=== PATIENT | female | born 1955 | race Caucasian/White ===

== ENCOUNTER 2018-04-22 06:14 | Outpatient (RCR) | payer MEDICAID, SELFPAY ==
[2018-04-22] MEDS: Normal Saline Flush 10 ML SYR IVP (12:26)
[2018-04-22] MEDS: Heparin 500 UNITS/5 ML SYRINGE IV (12:26)
[2018-04-22 12:54] LABS: Abs Immature Grans 0.01 k/cumm (0.0-0.09); Absolute Basophil Count 0.03 k/cumm (0.0-0.2); Absolute Eosinophil Count 0.29 k/cumm (0.0-0.7); Absolute Lymphocyte Count 0.79 k/cumm (1.2-3.4); Absolute Monocyte Count 0.71 k/cumm (0.11-0.7); Basophils % 0.5; Eosinophils % 4.6; HCT 36.4 % (36.0-46.0); HGB 11.9 g/dL (12.0-15.5); Immature Grans % 0.2; Lymphocytes % 12.5; Mean Corp. HGB Concentration 32.7 g/dL (32.0-36.0); Mean Corpuscular Volume 82.7 fL (80-95); Mean Platelet Volume 9.8 fL (8.0-11.0); Monocytes % 11.2; Platelet Count 313 x1000/uL (130-400); White Blood Cell Count 6.33 k/cumm (4.4-10.8)
[2018-04-22 13:05] LABS: ALT 21 U/L (12-78); AST 10 U/L (15-37); Albumin 3.6 g/dL (3.4-5.0); Alkaline Phosphatase 103 U/L (46-116); Anion Gap 11.1 mmol/L (3-11); BUN 19 mg/dL (7-18); Bilirubin, Total 0.3 mg/dL (0.2-1.0); CO2 23.9 mmol/L (21.0-32.0); CREATININE 0.97 mg/dL (0.55-1.02); Calcium 8.7 mg/dL (8.5-10.1); Chloride 104 mmol/L (98-107); Estimated GFR 58.38 (mL/min/1.73m2); Glucose 100 mg/dL (70-100); Sodium 139 mmol/L (136-145); Total Protein 7.4 g/dL (6.4-8.2)
== END 2018-04-29 ==
LOC: INF 06:14
PROVIDERS: PCP Nurse Practitioner Family; Visit Provider Internal Medicine Hematology & Oncology
DX: C20 Malignant neoplasm of rectum (principal); Z45.2 Encounter for adjustment and management of vascular access device
CPT/HCPCS: 36591; 80053; 85025

== ENCOUNTER 2018-05-01 18:18 | Emergency (ER) | payer MEDICAID, SELFPAY ==
[2018-05-01 18:24] VITALS: BP 126/45; PULSE 89; RESP 16; TEMP 36.6; O2SAT 98
[2018-05-01 19:19] LABS: Abs Immature Grans 0.02 k/cumm (0.0-0.09); Absolute Basophil Count 0.02 k/cumm (0.0-0.2); Absolute Eosinophil Count 0.11 k/cumm (0.0-0.7); Absolute Lymphocyte Count 0.64 k/cumm (1.2-3.4); Absolute Monocyte Count 0.21 k/cumm (0.11-0.7); Basophils % 0.5; Eosinophils % 2.8; HCT 35.7 % (36.0-46.0); HGB 11.6 g/dL (12.0-15.5); Immature Grans % 0.5; Lymphocytes % 16.5; Mean Corp. HGB Concentration 32.5 g/dL (32.0-36.0); Mean Corpuscular Hemoglobin 26.2 pg (27.0-33.0); Mean Corpuscular Volume 80.6 fL (80-95); Mean Platelet Volume 9.2 fL (8.0-11.0); Monocytes % 5.4; Neutrophils % 74.3; Platelet Count 334 x1000/uL (130-400); RBC 4.43 m/cumm (4.00-5.20); RBC Distribution Width 14.2 % (11.7-14.6); White Blood Cell Count 3.87 k/cumm (4.4-10.8)
--- NOTE | 2018-05-01 19:22 | W.ED.GENAD ---
Discharge Plan Discharge Details Chief Complaint: Abd Prob Clinical Impression: Abdominal pain Primary Care Provider: Татьяна Rothman ED Provider: Haris Morrell Disposition Patient Disposition: STILL A PATIENT Home Meds and New Rx's Prescriptions: No Action ZHANNA 180 MG tablet 180 mg PO DAILY RF: 0 spironolactone 25 MG tablet 50 mg PO BID RF: 0 omeprazole [Prilosec] 20 MG capsule,delayed release(DR/EC) 20 mg PO DAILY RF: 0 metformin 1,000 MG tablet 1,000 mg PO BID Qty: 180 RF: 3 gabapentin 100 MG capsule DAILY RF: 0 Medical Decision Making MDM Narrative Medical decision making narrative: 63 yo female with hx of rectal adenocarcinoma, recent admission for uti, who comes in with chief complaint of abdominal pain worsening over 4 days. She states she has had constipation for a week that has improved with miralax and has stool in her ostomy, has had nausea and no vomit. She has mid adbominal pain on exam. given her hx will obtain ct abd/pelvis to eval for sbo among other surgical pathology and eval for pancreatitis and hepatitis. She declined pain meds at this time Pt remains stable, awaiting imaging. Will be signed out to Dr. Helms pending imaging results Differential Diagnosis constipation, gastritis, pancreatitis, sbo Lab Data Lab Results 05/01/18 05/01/18 Range/Units 19:13 19:13 WBC Cancelled RBC Cancelled Hgb Cancelled Hct Cancelled MCV Cancelled MCH Cancelled MCHC Cancelled RDW Cancelled Plt Count Cancelled MPV Cancelled Abs Immat Gran (auto) Cancelled Immature Gran % Cancelled Neutrophils % Cancelled Lymphocytes % Cancelled Monocytes % Cancelled Eosinophils % Cancelled Basophils % Cancelled Absolute Neutrophils Cancelled Band Neutrophils Cancelled Absolute Lymphocytes Cancelled Absolute Monocytes Cancelled Absolute Eosinophils Cancelled Absolute Basophils Cancelled Metamyelocytes Cancelled Myelocytes Cancelled Promyelocytes Cancelled Nucleated RBCs Cancelled Differential Comment Cancelled Atypical Lymphocytes Cancelled Other Cell Type Cancelled RBC Morphology Cancelled Polychromasia Cancelled Hypochromasia Cancelled Poikilocytosis Cancelled Basophilic Stippling Cancelled Anisocytosis Cancelled Microcytosis Cancelled Macrocytosis Cancelled Spherocytes Cancelled Target Cells Cancelled Tear Drop Cells Cancelled Ovalocytes Cancelled Stomatocytes Cancelled [place] Bodies Cancelled Angeli Cells Cancelled Acanthocytes (Spur) Cancelled Schistocytes Cancelled Lipase Cancelled HPI - General Adult General Mode of arrival: ambulatory. Date/Time Provider Initiated Documentation: 05/01/18 18:28. Limitations to Documentation: no limitations. Information obtained by: patient. History of Present Illness 63 year old F presents to the emergency department with the chief complaint of abdominal pain, described as moderate, with intensity rated at 5. Quality is described as stabbing, and is localized to the abdomen. Patient reports no radiation. Patient started experiencing this day(s) (4) and it has been constant. Rest improves symptom(s), Movement worsens symptoms . Patient notes other (nausea). Patient did receive the following treatments prior to arrival, none Related Data Home Medications Medication Instructions Recorded Confirmed Zhanna 180 mg PO DAILY tab-cap 04/20/14 05/01/18 omeprazole [Prilosec] 20 mg PO DAILY tab-cap 04/20/14 05/01/18 spironolactone 50 mg PO BID tab-cap 04/20/14 05/01/18 gabapentin DAILY 04/22/18 Allergies Allergy/AdvReac Type Severity Reaction Status Date / Time No Known Allergies Allergy Unverified 05/01/18 18:23 General Stated Complaint: Abd Prob LINUS: 3 Review of Systems Review of Systems All systems reviewed & are unremarkable except as noted in HPI and below Constitutional Denies chills, Denies fever(s) and Denies weakness Eyes Patient Denies loss of vision ENT Denies change in voice Cardiovascular Denies chest pain and Denies dyspnea Respiratory Denies dyspnea Gastrointestinal Reports abdominal pain, Reports nausea and Denies vomiting Genitourinary Denies dysuria Musculoskeletal Denies joint swelling Integumentary/Breasts Denies rash Neurologic Denies loss of vision and Denies weakness Psychiatric Denies depression Endocrine Denies cold intolerance and Denies heat intolerance Allergic/Immunologic Reports urticaria [facility] Medical History Arthralgia Hyperlipidemia Low back pain ISIAH (obstructive sleep apnea) PCOS (polycystic ovarian syndrome) Vitamin D deficiency Social History Smoking/Tobacco Use Status: Never Surgical History Colonoscopy - MAC (07/27/17) Dilation and curettage Hysterectomy, Laproscopic Exam Const General: no acute distress Orientation: alert HENMT Head: normal to inspection Ears: external ears normal General nose exam: external nose normal Mouth: moist mucous membranes Eyes General: appearance normal, both eyes and all related structures Neck Neck: normal visual inspection Resp Effort & Inspection: normal respiratory effort and able to speak in complete sentences Cardio Rate: regular rate GI Palpation: tender (mid abdomen, no guarding or rebound, ostomy with loose stool in it) Skin General skin exam: no rashes or lesions noted Neuro General: alert and oriented x3 Extrem General: normal to inspection Psych Mental Status: mental status grossly normal Course Vital Signs Temperature 36.6 C 05/01/18 18:24 Pulse 89 05/01/18 18:24 Respiratory Rate 16 05/01/18 18:24 Blood Pressure 126/45 L 05/01/18 18:24 Pulse Oximetry 98 05/01/18 18:24 Temperature 36.6 C 05/01/18 18:24 Pulse 89 05/01/18 18:24 Respiratory Rate 16 05/01/18 18:24 Blood Pressure 126/45 L 05/01/18 18:24 Pulse Oximetry 98 05/01/18 18:24 Lab/Test Results Lab/Test Results: Laboratory Tests 05/01/18 05/01/18 19:13 19:13 WBC Cancelled RBC Cancelled Hgb Cancelled Hct Cancelled MCV Cancelled MCH Cancelled MCHC Cancelled RDW Cancelled Plt Count Cancelled MPV Cancelled Abs Immat Gran (auto) Cancelled Immature Gran % Cancelled Neutrophils % Cancelled Lymphocytes % Cancelled Monocytes % Cancelled Eosinophils % Cancelled Basophils % Cancelled Absolute Neutrophils Cancelled Band Neutrophils Cancelled Absolute Lymphocytes Cancelled Absolute Monocytes Cancelled Absolute Eosinophils Cancelled Absolute Basophils Cancelled Metamyelocytes Cancelled Myelocytes Cancelled Promyelocytes Cancelled Nucleated RBCs Cancelled Differential Comment Cancelled Atypical Lymphocytes Cancelled Other Cell Type Cancelled RBC Morphology Cancelled Polychromasia Cancelled Hypochromasia Cancelled Poikilocytosis Cancelled Basophilic Stippling Cancelled Anisocytosis Cancelled Microcytosis Cancelled Macrocytosis Cancelled Spherocytes Cancelled Target Cells Cancelled Tear Drop Cells Cancelled Ovalocytes Cancelled Stomatocytes Cancelled [place] Bodies Cancelled Angeli Cells Cancelled Acanthocytes (Spur) Cancelled Schistocytes Cancelled Lipase Cancelled
--- NOTE | 2018-05-01 19:28 | ED.GENADUL_ITS ---
Discharge Plan Discharge Details Chief Complaint: Abd Prob Clinical Impression: Abdominal pain Primary Care Provider: Татьяна Rothman ED Provider: Haris Morrell Disposition Patient Disposition: STILL A PATIENT Home Meds and New Rx's Prescriptions: No Action ZHANNA 180 MG tablet 180 mg PO DAILY RF: 0 spironolactone 25 MG tablet 50 mg PO BID RF: 0 omeprazole [Prilosec] 20 MG capsule,delayed release(DR/EC) 20 mg PO DAILY RF: 0 metformin 1,000 MG tablet 1,000 mg PO BID Qty: 180 RF: 3 gabapentin 100 MG capsule DAILY RF: 0 Medical Decision Making MDM Narrative Medical decision making narrative: 63 yo female with hx of rectal adenocarcinoma , recent admission for uti, who comes in with chief complaint of abdominal pain worsening over 4 days. She states she has had constipation for a week that has improved with miralax and has stool in her ostomy, has had nausea and no vomit. She has mid adbominal pain on exam. given her hx will obtain ct abd/pelvis to eval for sbo among other surgical pathology and eval for pancreatitis and hepatitis. She declined pain meds at this time Pt remains stable, awaiting imaging. Will be signed out to Dr. Helms pending imaging results Differential Diagnosis constipation, gastritis, pancreatitis, sbo Lab Data Lab Results 05/01/18 05/01/18 Range/Units 19:13 19:13 WBC Cancelled RBC Cancelled Hgb Cancelled Hct Cancelled MCV Cancelled MCH Cancelled MCHC Cancelled RDW Cancelled Plt Count Cancelled MPV Cancelled Abs Immat Gran (auto) Cancelled Immature Gran % Cancelled Neutrophils % Cancelled Lymphocytes % Cancelled Monocytes % Cancelled Eosinophils % Cancelled Basophils % Cancelled Absolute Neutrophils Cancelled Band Neutrophils Cancelled Absolute Lymphocytes Cancelled Absolute Monocytes Cancelled Absolute Eosinophils Cancelled Absolute Basophils Cancelled Metamyelocytes Cancelled Myelocytes Cancelled Promyelocytes Cancelled Nucleated RBCs Cancelled Differential Comment Cancelled Atypical Lymphocytes Cancelled Other Cell Type Cancelled RBC Morphology Cancelled Polychromasia Cancelled Hypochromasia Cancelled Poikilocytosis Cancelled Basophilic Stippling Cancelled Anisocytosis Cancelled Microcytosis Cancelled Macrocytosis Cancelled Spherocytes Cancelled Target Cells Cancelled Tear Drop Cells Cancelled Ovalocytes Cancelled Stomatocytes Cancelled [place] Bodies Cancelled [place] Cells Cancelled Acanthocytes (Spur) Cancelled Schistocytes Cancelled Lipase Cancelled HPI - General Adult General Mode of arrival: ambulatory . Date/Time Provider Initiated Documentation: 05/01/18 18:28 . Limitations to Documentation: no limitations . Information obtained by: patient . History of Present Illness 63 year old F presents to the emergency department with the chief complaint of abdominal pain, described as moderate, with intensity rated at 5. Quality is described as stabbing, and is localized to the abdomen. Patient reports no radiation. Patient started experiencing this day(s) (4) and it has been constant. Rest improves symptom(s), Movement worsens symptoms . Patient notes other (nausea). Patient did receive the following treatments prior to arrival, none Related Data Home Medications Medication Instructions Recorded Confirmed Zhanna 180 mg PO DAILY tab-cap 04/20/14 05/01/18 omeprazole [Prilosec] 20 mg PO DAILY tab-cap 04/20/14 05/01/18 spironolactone 50 mg PO BID tab-cap 04/20/14 05/01/18 gabapentin DAILY 04/22/18 Allergies Allergy/AdvReac Type Severity Reaction Status Date / Time No Known Allergies Allergy Unverified 05/01/18 18:23 General Stated Complaint: Abd Prob LINUS: 3 Review of Systems Review of Systems All systems reviewed & are unremarkable except as noted in HPI and below Constitutional Denies chills, Denies fever(s) and Denies weakness Eyes Patient Denies loss of vision ENT Denies change in voice Cardiovascular Denies chest pain and Denies dyspnea Respiratory Denies dyspnea Gastrointestinal Reports abdominal pain, Reports nausea and Denies vomiting Genitourinary Denies dysuria Musculoskeletal Denies joint swelling Integumentary/Breasts Denies rash Neurologic Denies loss of vision and Denies weakness Psychiatric Denies depression Endocrine Denies cold intolerance and Denies heat intolerance Allergic/Immunologic Reports urticaria [facility] Medical History Arthralgia Hyperlipidemia Low back pain ISIAH (obstructive sleep apnea) PCOS (polycystic ovarian syndrome) Vitamin D deficiency Social History Smoking/Tobacco Use Status: Never Surgical History Colonoscopy - MAC (07/27/17) Dilation and curettage Hysterectomy, Laproscopic Exam Const General: no acute distress Orientation: alert HENMT Head: normal to inspection Ears: external ears normal General nose exam: external nose normal Mouth: moist mucous membranes Eyes General: appearance normal, both eyes and all related structures Neck Neck: normal visual inspection Resp Effort & Inspection: normal respiratory effort and able to speak in complete sentences Cardio Rate: regular rate GI Palpation: tender (mid abdomen, no guarding or rebound, ostomy with loose stool in it) Skin General skin exam: no rashes or lesions noted Neuro General: alert and oriented x3 Extrem General: normal to inspection Psych Mental Status: mental status grossly normal Course Vital Signs Temperature 36.6 C 05/01/18 18:24 Pulse 89 05/01/18 18:24 Respiratory Rate 16 05/01/18 18:24 Blood Pressure 126/45 L 05/01/18 18:24 Pulse Oximetry 98 05/01/18 18:24 Temperature 36.6 C 05/01/18 18:24 Pulse 89 05/01/18 18:24 Respiratory Rate 16 05/01/18 18:24 Blood Pressure 126/45 L 05/01/18 18:24 Pulse Oximetry 98 05/01/18 18:24 Lab/Test Results Lab/Test Results: Laboratory Tests 05/01/18 05/01/18 19:13 19:13 WBC Cancelled RBC Cancelled Hgb Cancelled Hct Cancelled MCV Cancelled MCH Cancelled MCHC Cancelled RDW Cancelled Plt Count Cancelled MPV Cancelled Abs Immat Gran (auto) Cancelled Immature Gran % Cancelled Neutrophils % Cancelled Lymphocytes % Cancelled Monocytes % Cancelled Eosinophils % Cancelled Basophils % Cancelled Absolute Neutrophils Cancelled Band Neutrophils Cancelled Absolute Lymphocytes Cancelled Absolute Monocytes Cancelled Absolute Eosinophils Cancelled Absolute Basophils Cancelled Metamyelocytes Cancelled Myelocytes Cancelled Promyelocytes Cancelled Nucleated RBCs Cancelled Differential Comment Cancelled Atypical Lymphocytes Cancelled Other Cell Type Cancelled RBC Morphology Cancelled Polychromasia Cancelled Hypochromasia Cancelled Poikilocytosis Cancelled Basophilic Stippling Cancelled Anisocytosis Cancelled Microcytosis Cancelled Macrocytosis Cancelled Spherocytes Cancelled Target Cells Cancelled Tear Drop Cells Cancelled Ovalocytes Cancelled Stomatocytes Cancelled [place] Bodies Cancelled [place] Cells Cancelled Acanthocytes (Spur) Cancelled Schistocytes Cancelled Lipase Cancelled
[2018-05-01 19:33] LABS: ALT 20 U/L (12-78); AST 10 U/L (15-37); Albumin 3.4 g/dL (3.4-5.0); Alkaline Phosphatase 104 U/L (46-116); Anion Gap 8.9 mmol/L (3-11); BUN 17 mg/dL (7-18); Bilirubin, Total 0.2 mg/dL (0.2-1.0); CO2 26.1 mmol/L (21.0-32.0); CREATININE 0.86 mg/dL (0.55-1.02); Calcium 8.6 mg/dL (8.5-10.1); Chloride 102 mmol/L (98-107); Glucose 167 mg/dL (70-100); Lipase 80 U/L (73-393); Potassium 4.4 mmol/L (3.5-5.1); Sodium 137 mmol/L (136-145); Total Protein 7.1 g/dL (6.4-8.2)
[2018-05-01 19:34] LABS: Absolute Neutrophil Count 2.88 k/cumm (1.2-6.7)
[2018-05-01] MEDS: Normal Saline 1,000 ML 1000 ML IV (19:41)
[2018-05-01] MEDS: Omnipaque 350 MG/ML 100 ML BTL IJ (20:02)
--- NOTE | 2018-05-01 20:14 | DI.CT_ITS ---
SYMPTOMS/DIAGNOSIS: MID ABDOMINAL PAIN, H/O CANCER CT OF THE ABDOMEN AND PELVIS: Comparison is made with March,. Images were performed from the lung bases through the ischial tuberosities after IV and without oral contrast. A left lower quadrant ostomy and rectal resection are again noted. There is stable presacral soft tissue thickening. There is no evidence of obstruction. No bowel wall thickening is seen. The urinary bladder appears somewhat distended, but otherwise unremarkable. The appendix appears normal. The patient is status post cholecystectomy. The liver, spleen, pancreas and adrenals are unremarkable. There is a right renal cyst. There is no evidence of stones or hydronephrosis. No adenopathy is seen. The aorta is normal in diameter. The lung bases show minimal dependent changes. IMPRESSION: Stable appearance of left lower quadrant ostomy with adjacent fat herniating through the ostomy defect. Stable presacral soft tissue swelling. No acute abnormality is identified.
--- NOTE | 2018-05-01 21:08 | DI.VRAD_ITS ---
EXAM: CT Abdomen and Pelvis With Intravenous Contrast EXAM DATE/TIME: 05/01/2018 8:15 PM CLINICAL HISTORY: 63 years old, female; Signs and symptoms; Other: HX of cancer, mid abdominal pain; Patient HX: Patient being treated for rectal cancer TECHNIQUE: Axial computed tomography images of the abdomen and pelvis with intravenous contrast. All CT scans at this facility use at least one of these dose optimization techniques: automated exposure control; mA and/or kV adjustment per patient size (includes targeted exams where dose is matched to clinical indication); or iterative reconstruction. Coronal and sagittal reformatted images were created and reviewed. CONTRAST: 100 ml of Omnipaque 350 administered intravenously. COMPARISON: CT - CHEST ABD PELVIS WITH CONTRAST 08/09/2017 9:19 AM FINDINGS: Lower thorax: Mild bibasilar atelectasis. ABDOMEN: Liver: Moderate hepatic steatosis. Gallbladder and bile ducts: Post cholecystectomy. Pancreas: Normal. No ductal dilation. Spleen: Normal. No splenomegaly. Adrenals: Normal. No mass. Kidneys and ureters: Few bilateral renal cysts; largest, right kidney, measuring 16 mm. Stomach and bowel: Stomach is moderately distended and fluid-filled. Colostomy, left lower quadrant. Colostomy is new since the 08/09/17 study. Appendix: Normal appendix. PELVIS: Bladder: Bladder is moderately distended. Reproductive: Unremarkable as visualized. Subperitoneal space: Thickening in the presacral region, axial image 84/5 is likely postoperative in origin. Previous noted rectal mass is not visualized on today's study. ABDOMEN and PELVIS: Intraperitoneal space: Normal. No free air. No significant fluid collection. Bones/joints: No acute fracture. No dislocation. Soft tissues: Small, fat containing umbilical hernia. There is herniation of a large amount of fat in the superficial soft tissues around the ostomy site, axial image(s) 74/5. Vasculature: Normal. No abdominal aortic aneurysm. Lymph nodes: Normal. No enlarged lymph nodes. IMPRESSION: Left lower quadrant colostomy, new since the previous study with a large amount of abdominal fat herniated into the ostomy site as described. No obstruction. Postoperative changes noted in the presacral space. No other significant change. No obstruction. Appendix is normal. Dictated and Authenticated by: Santana Gamino MD. Ordering:NEETU ROBERT MD
[2018-05-01 21:29] LABS: Bilirubin Negative (Negative); Blood Trace-intact (Negative); Clarity Clear; Glucose Negative (Negative); Ketones Negative (Negative); Leukocyte Esterase Negative (Negative); Nitrite Negative (Negative); Specific Gravity <= 1.005 (1.005-1.025); Urobilinogen 0.2 EU/dL (Up TO 0.2); pH 5.5 (5-8)
[2018-05-01 21:30] LABS: Bacteria Negative HPF (Negative); C & S Indicated? No; Casts Negative LPF (Negative); Crystals Negative HPF (Negative); Epithelial Cells Negative HPF (Negative); Mucus Negative (Negative); Other Cells Negative (Negative); RBC Negative (0-2); WBC 0-2 HPF (0-5)
[2018-05-01 21:55] VITALS: BP 112/73; PULSE 91; RESP 18; TEMP 36.7; O2SAT 98
[2018-05-01] MEDS: Heparin 500 UNITS/5 ML SYRINGE IVP (21:55)
== END 2018-05-01 21:52 | disposition home or self-care (01) ==
PROVIDERS: Emergency Medicine; Emergency Provider Emergency Medicine; PCP Nurse Practitioner Family
DX: R10.33 Periumbilical pain (principal); R11.0 Nausea; Z85.048 Personal history of other malignant neoplasm of rectum, rectosigmoid junction, and anus; Z93.3 Colostomy status; Z95.828 Presence of other vascular implants and grafts
CPT/HCPCS: 36591; 51701; 80053; 83690; 96361; 96365; 99285; 74177; 81003; 81015; 85025; 85610; J3490

== ENCOUNTER 2018-05-20 00:43 | Outpatient (RCR) | payer MEDICAID, SELFPAY ==
[2018-05-06] MEDS: Normal Saline Flush 10 ML SYR IVP (09:30)
[2018-05-06] MEDS: Heparin 500 UNITS/5 ML SYRINGE IV (09:30)
[2018-05-06 10:25] LABS: Abs Immature Grans 0.03 k/cumm (0.0-0.09); Absolute Basophil Count 0.03 k/cumm (0.0-0.2); Absolute Eosinophil Count 0.24 k/cumm (0.0-0.7); Absolute Lymphocyte Count 0.67 k/cumm (1.2-3.4); Absolute Monocyte Count 0.55 k/cumm (0.11-0.7); Absolute Neutrophil Count 3.88 k/cumm (1.2-6.7); Basophils % 0.6; Eosinophils % 4.4; HCT 36.4 % (36.0-46.0); HGB 11.9 g/dL (12.0-15.5); Immature Grans % 0.6; Lymphocytes % 12.4; Mean Corp. HGB Concentration 32.7 g/dL (32.0-36.0); Mean Corpuscular Hemoglobin 26.8 pg (27.0-33.0); Monocytes % 10.2; Neutrophils % 71.8; Platelet Count 417 x1000/uL (130-400); RBC 4.44 m/cumm (4.00-5.20)
[2018-05-06 10:27] LABS: ALT 22 U/L (12-78); AST 15 U/L (15-37); Albumin 3.6 g/dL (3.4-5.0); Alkaline Phosphatase 108 U/L (46-116); Anion Gap 9.8 mmol/L (3-11); BUN 20 mg/dL (7-18); Bilirubin, Total 0.3 mg/dL (0.2-1.0); CO2 25.2 mmol/L (21.0-32.0); CREATININE 0.99 mg/dL (0.55-1.02); Calcium 8.7 mg/dL (8.5-10.1); Chloride 103 mmol/L (98-107); Estimated GFR 57.02 (mL/min/1.73m2); Glucose 140 mg/dL (70-100); Potassium 3.9 mmol/L (3.5-5.1); Sodium 138 mmol/L (136-145); Total Protein 7.3 g/dL (6.4-8.2)
[2018-05-20] MEDS: Heparin 500 UNITS/5 ML SYRINGE IV (12:40)
[2018-05-20] MEDS: Normal Saline Flush 10 ML SYR IVP (12:40)
[2018-05-20 13:18] LABS: Abs Immature Grans 0.02 k/cumm (0.0-0.09); Absolute Basophil Count 0.03 k/cumm (0.0-0.2); Absolute Eosinophil Count 0.27 k/cumm (0.0-0.7); Absolute Lymphocyte Count 0.65 k/cumm (1.2-3.4); Absolute Monocyte Count 0.77 k/cumm (0.11-0.7); Absolute Neutrophil Count 3.63 k/cumm (1.2-6.7); Basophils % 0.6; HCT 36.3 % (36.0-46.0); HGB 11.8 g/dL (12.0-15.5); Immature Grans % 0.4; Lymphocytes % 12.1; Mean Corp. HGB Concentration 32.5 g/dL (32.0-36.0); Mean Corpuscular Hemoglobin 27.1 pg (27.0-33.0); Mean Corpuscular Volume 83.3 fL (80-95); Monocytes % 14.3; Neutrophils % 67.6; Platelet Count 305 x1000/uL (130-400); RBC 4.36 m/cumm (4.00-5.20); RBC Distribution Width 16.6 % (11.7-14.6); White Blood Cell Count 5.37 k/cumm (4.4-10.8)
[2018-05-20 13:34] LABS: ALT 21 U/L (12-78); AST 14 U/L (15-37); Albumin 3.5 g/dL (3.4-5.0); Alkaline Phosphatase 124 U/L (46-116); Anion Gap 10.4 mmol/L (3-11); BUN 20 mg/dL (7-18); Bilirubin, Total 0.3 mg/dL (0.2-1.0); CO2 23.6 mmol/L (21.0-32.0); CREATININE 0.97 mg/dL (0.55-1.02); Calcium 8.8 mg/dL (8.5-10.1); Chloride 104 mmol/L (98-107); Estimated GFR 58.38 (mL/min/1.73m2); Glucose 125 mg/dL (70-100); Potassium 4.2 mmol/L (3.5-5.1); Sodium 138 mmol/L (136-145); Total Protein 7.2 g/dL (6.4-8.2)
[2018-05-23 09:37] LABS: CEA 4.9 ng/ml
== END 2018-05-29 23:59 | disposition home or self-care (01) ==
LOC: INF 00:43
PROVIDERS: PCP Nurse Practitioner Family; Visit Provider Internal Medicine Hematology & Oncology
DX: C20 Malignant neoplasm of rectum (principal); Z45.2 Encounter for adjustment and management of vascular access device
CPT/HCPCS: 36591; 80053; 82378; 85025

== ENCOUNTER 2018-06-17 02:26 | Outpatient (RCR) | payer MEDICAID, SELFPAY ==
[2018-06-06] MEDS: Normal Saline Flush 10 ML SYR IVP (09:20)
[2018-06-06 09:49] LABS: Abs Immature Grans 0.01 k/cumm (0.0-0.09); Absolute Basophil Count 0.04 k/cumm (0.0-0.2); Absolute Eosinophil Count 0.14 k/cumm (0.0-0.7); Absolute Lymphocyte Count 0.51 k/cumm (1.2-3.4); Absolute Monocyte Count 0.43 k/cumm (0.11-0.7); Absolute Neutrophil Count 1.31 k/cumm (1.2-6.7); Basophils % 1.6; Eosinophils % 5.7; HCT 37.7 % (36.0-46.0); HGB 12.3 g/dL (12.0-15.5); Immature Grans % 0.4; Lymphocytes % 20.9; Mean Corp. HGB Concentration 32.6 g/dL (32.0-36.0); Mean Corpuscular Hemoglobin 27.9 pg (27.0-33.0); Mean Corpuscular Volume 85.5 fL (80-95); Mean Platelet Volume 9.2 fL (8.0-11.0); Monocytes % 17.6; Neutrophils % 53.8; RBC 4.41 m/cumm (4.00-5.20); RBC Distribution Width 19.2 % (11.7-14.6); White Blood Cell Count 2.44 k/cumm (4.4-10.8)
[2018-06-06 10:05] LABS: ALT 22 U/L (12-78); AST 16 U/L (15-37); Albumin 3.5 g/dL (3.4-5.0); Alkaline Phosphatase 127 U/L (46-116); Anion Gap 9.3 mmol/L (3-11); BUN 16 mg/dL (7-18); Bilirubin, Total 0.4 mg/dL (0.2-1.0); CO2 24.7 mmol/L (21.0-32.0); CREATININE 1.25 mg/dL (0.55-1.02); Calcium 8.8 mg/dL (8.5-10.1); Chloride 102 mmol/L (98-107); Estimated GFR 43.57 (mL/min/1.73m2); Glucose 247 mg/dL (70-100); Potassium 4.7 mmol/L (3.5-5.1); Sodium 136 mmol/L (136-145); Total Protein 7.1 g/dL (6.4-8.2)
[2018-06-06 10:12] LABS: Diff Comment Agrees w/ Instrument; Platelet Count 206 x1000/uL (130-400)
[2018-06-06 10:13] LABS: Anisocytosis 2+; Polychromasia Present
[2018-06-17] MEDS: Heparin 500 UNITS/5 ML SYRINGE IV (07:45)
[2018-06-17] MEDS: Normal Saline Flush 10 ML SYR IVP (07:45)
[2018-06-17 08:15] LABS: Abs Immature Grans 0.01 k/cumm (0.0-0.09); Absolute Basophil Count 0.03 k/cumm (0.0-0.2); Absolute Eosinophil Count 0.13 k/cumm (0.0-0.7); Absolute Lymphocyte Count 0.58 k/cumm (1.2-3.4); Absolute Monocyte Count 0.45 k/cumm (0.11-0.7); Basophils % 0.7; Eosinophils % 3.2; HCT 35.4 % (36.0-46.0); HGB 11.8 g/dL (12.0-15.5); Immature Grans % 0.2; Lymphocytes % 14.1; Mean Corp. HGB Concentration 33.3 g/dL (32.0-36.0); Mean Corpuscular Hemoglobin 28.2 pg (27.0-33.0); Mean Corpuscular Volume 84.5 fL (80-95); Neutrophils % 70.8; Platelet Count 280 x1000/uL (130-400); RBC 4.19 m/cumm (4.00-5.20); RBC Distribution Width 19.7 % (11.7-14.6)
[2018-06-17 08:28] LABS: ALT 23 U/L (12-78); AST 11 U/L (15-37); Albumin 3.5 g/dL (3.4-5.0); Alkaline Phosphatase 131 U/L (46-116); Anion Gap 15.7 mmol/L (3-11); BUN 25 mg/dL (7-18); Bilirubin, Total 0.3 mg/dL (0.2-1.0); CO2 20.3 mmol/L (21.0-32.0); CREATININE 1.12 mg/dL (0.55-1.02); Calcium 9.3 mg/dL (8.5-10.1); Chloride 103 mmol/L (98-107); Estimated GFR 49.46 (mL/min/1.73m2); Glucose 167 mg/dL (70-100); Potassium 4.3 mmol/L (3.5-5.1); Sodium 139 mmol/L (136-145)
== END 2018-06-29 23:59 | disposition home or self-care (01) ==
LOC: INF 02:26
PROVIDERS: PCP Nurse Practitioner Family; Visit Provider Internal Medicine Hematology & Oncology
DX: C20 Malignant neoplasm of rectum (principal); Z45.2 Encounter for adjustment and management of vascular access device
CPT/HCPCS: 36415; 36591; 80053; 96523; 85025

== ENCOUNTER 2018-07-11 01:07 | Outpatient (CLI) | payer MEDICAID, SELFPAY ==
--- NOTE | 2018-07-11 11:08 | DI.RAD_ITS ---
SYMPTOM/DIAGNOSIS: RECTAL CA, C20 CATHETER PATENCY CHECK: Fluoroscopy Time: 47 sec Fluoroscopy was utilized during the evaluation of the patient's central venous port. Contrast and saline were unable to be advanced with the patient's arms by her side. However, when the patient's arms were raised above her head, contrast and saline was allowed to flow freely. Fluoroscopic images show contrast flowing from the tip of the catheter without impediment. IMPRESSION: Unremarkable injection of contrast and saline using the patient's penny cath with the patient's arms elevated. 2. The penny cath failed to function normally with the patient's arms by her side. These findings were discussed with Dr. Field on the date of the examination
[2018-07-11] MEDS: Omnipaque 350 MG/ML 50 ML BTL IJ (11:12)
== END 2018-07-11 01:27 ==
PROVIDERS: PCP Nurse Practitioner Family; Visit Provider Nurse Practitioner Adult Health
DX: C20 Malignant neoplasm of rectum (principal); Z45.2 Encounter for adjustment and management of vascular access device
CPT/HCPCS: 76000; Q9967

== ENCOUNTER 2018-07-11 01:22 | Outpatient (RCR) | payer MEDICAID, SELFPAY ==
[2018-07-05] MEDS: Normal Saline Flush 10 ML SYR IVP (08:20)
[2018-07-05 08:44] LABS: Abs Immature Grans 0.05 k/cumm (0.0-0.09); Absolute Basophil Count 0.05 k/cumm (0.0-0.2); Absolute Lymphocyte Count 0.89 k/cumm (1.2-3.4); Absolute Monocyte Count 0.74 k/cumm (0.11-0.7); Absolute Neutrophil Count 5.29 k/cumm (1.2-6.7); Basophils % 0.7; Eosinophils % 4.1; HCT 38.8 % (36.0-46.0); HGB 12.6 g/dL (12.0-15.5); Immature Grans % 0.7; Lymphocytes % 12.2; Mean Corp. HGB Concentration 32.5 g/dL (32.0-36.0); Mean Corpuscular Hemoglobin 28.4 pg (27.0-33.0); Mean Corpuscular Volume 87.4 fL (80-95); Mean Platelet Volume 9.5 fL (8.0-11.0); Monocytes % 10.1; Neutrophils % 72.2; Platelet Count 272 x1000/uL (130-400); RBC 4.44 m/cumm (4.00-5.20); RBC Distribution Width 21.2 % (11.7-14.6); White Blood Cell Count 7.32 k/cumm (4.4-10.8)
[2018-07-05 08:55] LABS: ALT 27 U/L (12-78); AST 16 U/L (15-37); Albumin 3.7 g/dL (3.4-5.0); Alkaline Phosphatase 118 U/L (46-116); Anion Gap 13.5 mmol/L (3-11); BUN 22 mg/dL (7-18); Bilirubin, Total 0.3 mg/dL (0.2-1.0); CO2 20.5 mmol/L (21.0-32.0); CREATININE 1.01 mg/dL (0.55-1.02); Calcium 9.1 mg/dL (8.5-10.1); Chloride 102 mmol/L (98-107); Estimated GFR 55.72 (mL/min/1.73m2); Glucose 150 mg/dL (70-100); Potassium 4.4 mmol/L (3.5-5.1); Sodium 136 mmol/L (136-145); Total Protein 7.3 g/dL (6.4-8.2)
[2018-07-05] MEDS: Heparin 500 UNITS/5 ML SYRINGE IV (08:58)
[2018-07-06 10:01] LABS: CEA 3.5 ng/ml
[2018-07-11] MEDS: Normal Saline Flush 10 ML SYR IVP (09:40)
== END 2018-07-29 23:59 | disposition home or self-care (01) ==
LOC: INF 01:22
PROVIDERS: PCP Nurse Practitioner Family; Visit Provider Internal Medicine Hematology & Oncology
DX: C20 Malignant neoplasm of rectum (principal); Z45.2 Encounter for adjustment and management of vascular access device
CPT/HCPCS: 36591; 80053; 96523; 82378; 85025

== ENCOUNTER 2018-07-15 10:43 | Day surgery (SDC) | payer MEDICAID, SELFPAY ==
[2018-07-15 11:23] VITALS: BP 109/71; PULSE 84; RESP 16; TEMP 36.6; O2SAT 96
[2018-07-15] MEDS: Lidocaine 1% Pres-Free 5 ML VIAL (14:58)
--- NOTE | 2018-07-15 15:35 | ROE_ITS ---
Date of service: 07/15/18 Time of Service: 15:25 Operative Note DATE OF PROCEDURE: 07/15/18 PRE-OP DIAGNOSIS: Rectal cancer POST-OP DIAGNOSIS: same PROCEDURE: Removal of subcutaneous port and central venous access SURGEON: Luther Lim ANESTHESIA: local (1% lidocaine and 0.5% Marcaine with epinephrine) ESTIMATED BLOOD LOSS: 1 PATHOLOGY: none sent COMPLICATIONS: None Patient was transported to: same day Patient's condition: stable Indications: 63-year-old female being treated for rectal cancer with chemotherapy. She had a port placement for receiving of her chemotherapy and frequent diagnostic testing, but the port is stopped functioning there is concerned that there is an infection present as are some redness over the port site. It has been requested that it be removed. I reviewed the procedure with Mrs. Pacheco and discussed the risks of procedure. All her questions are answered her satisfaction. Consents been obtained to proceed with port removal. Findings: Subcutaneous port removed with central venous catheter intact Procedure Description: The patient was brought to the procedure room, positioned supine in a semi- eldridge position. An appropriate timeout was taken reviewing the patient's identification, allergies, medications, and procedure. The left anterior chest was then prepped with ChloraPrep and block draped in standard sterile fashion. Local was infiltrated over the port site for field anesthesia. I began by making a 3 cm linear transverse incision through the prior scar from the port placement. Incision was carried down through the subcutaneous tissue until reaching the port pocket over the anterior portion of the port. Then using iris scissors I opened up the port pocket the full length of the incision. Blunt and sharp dissection was then used to expose the stay sutures holding the port in place. Stay sutures were sharply divided. The port hub was then blunt and sharply dissected. The port was then bluntly removed along with the catheter intact from the pocket in the anterior chest wall. Pressure was held on the catheter tunnel for several minutes. I inspected the port and the associated venous catheter, and the catheter tip appeared intact. I then closed the defect in layers. Subcutaneous layer was closed in interrupted sutures of 3-0 Vicryl suture skin was closed using 4-0 Vicryl in a running subcuticular fashion. Skin affix glue was then applied over the wound peer. There were no complications during the case the patient. The patient tolerated procedure well, and was brought to the day surgery recovery area in good condition. All counts reported as correct x2
--- NOTE | 2018-07-15 15:35 | W.PM.DSUDISC ---
Discharge Plan Disposition Patient Disposition: HOME Condition: Good Discharge Details Reason For Visit: PORT REMOVAL Attending Provider: Luther Lim Primary Care Provider: Татьяна Rothman Home Meds and New Rx's Prescriptions: Continue ZHANNA 180 MG tablet 180 mg PO DAILY RF: 0 spironolactone 25 MG tablet 50 mg PO BID RF: 0 omeprazole [Prilosec] 20 MG capsule,delayed release(DR/EC) 20 mg PO DAILY RF: 0 metformin 1,000 MG tablet 1,000 mg PO BID Qty: 180 RF: 3 gabapentin 100 MG capsule DAILY RF: 0 Discharge Instructions Instructions: Implanted Venous Access Port (GEN), Care For Your Absorbable Stitches (DC) Stand Alone Forms: Callie Hilton (OSCARU) Activity:: Activity as Tolerated Remove Dressings/Wound Care:: Do Not Remove Shower/Bathe:: 24 hours Diet:: As Tolerated Discharge Orders Discharge Orders: Discharge Order (Routine); Ordered 07/15/18 Ordered By: Luther Lim DS: Diagnosis Discharge Diagnosis (1) Adenocarcinoma: Status: Acute Asessment and Plan: Non-functioning port removed.
== END 2018-07-15 15:52 | disposition home or self-care (01) ==
PROVIDERS: PCP Nurse Practitioner Family; Visit Provider Surgery
PROC: (CPT 36590; principal; 2018-07-15 12:15)
DX: C20 Malignant neoplasm of rectum (principal); Z45.2 Encounter for adjustment and management of vascular access device; K21.9 Gastro-esophageal reflux disease without esophagitis; G47.33 Obstructive sleep apnea (adult) (pediatric)
CPT/HCPCS: 36590

== ENCOUNTER 2018-07-26 08:05 | Day surgery (SDC) | payer MEDICAID, SELFPAY ==
[2018-07-26 08:26] VITALS: BP 125/79; PULSE 87; RESP 16; TEMP 36; O2SAT 95
[2018-07-26] MEDS: Lactated Ringers 1,000 ML 30 ML IV (08:45)
[2018-07-26 08:52] LABS: HCT 36.4 % (36.0-46.0); HGB 12.3 g/dL (12.0-15.5); Mean Corp. HGB Concentration 33.8 g/dL (32.0-36.0); Mean Corpuscular Hemoglobin 29.6 pg (27.0-33.0); Mean Corpuscular Volume 87.5 fL (80-95); Mean Platelet Volume 9.5 fL (8.0-11.0); Platelet Count 270 x1000/uL (130-400); RBC 4.16 m/cumm (4.00-5.20); RBC Distribution Width 19.7 % (11.7-14.6); White Blood Cell Count 3.69 k/cumm (4.4-10.8)
--- NOTE | 2018-07-26 10:09 | DI.RAD_ITS ---
SYMPTOMS/DIAGNOSIS: PORT PLACEMENT C-ARM FLUOROSCOPY OF THE CHEST: Fluoroscopy Time: 55.2 sec Fluoroscopy was provided for Dr. Lim for guidance with placing a port. Hard copy images show port placement on the right side with the tip in the superior vena cava. Please see procedure note for details.
--- NOTE | 2018-07-26 10:30 | W.PM.HP.N ---
Date of service: 07/26/18 Time of Service: 10:30 Assessment and Plan (1) Adenocarcinoma: Current visit: No Status: Acute Plan to place new port-a-cath for therapeutic and diagnostic needs in treat of her rectal cancer. History of Present Illness Chief Complaint: Rectal cancer Narrative: 63-year-old female with rectal cancer, she is currently receiving chemotherapy after having undergone a resection. She did have a port in earlier but this was felt to be infected and stopped functioning and was removed. She is continuing chemotherapy and will require this for new central venous access for diagnostic and therapeutic use. Review of Systems Review of Systems All systems reviewed & are unremarkable except as noted in HPI and below Constitutional Denies body ache(s), Denies chills, Denies fever(s), Denies lethargy, Denies malaise, Denies night sweats, Denies weakness and Denies weight loss Eyes Denies blurry vision, Denies diplopia and Denies loss of vision ENT Denies dysphagia, Denies vertigo, Denies dizziness, Denies hearing loss, Denies hoarseness, Denies epistaxis and Denies tinnitus Cardiovascular Denies chest pain, Denies syncope, Denies pedal edema, Denies lightheadedness, Denies radiating jaw, neck or arm pain, Denies dyspnea and Denies dyspnea on exertion Respiratory Denies cough, Denies hemoptysis, Denies dyspnea, Denies dyspnea on exertion and Denies wheezing Gastrointestinal Denies melena, Denies tenesmus, Denies dysphagia, Denies diarrhea, Denies nausea and Denies vomiting Musculoskeletal Reports back pain, Denies myalgias, Denies arthralgias and Denies joint swelling Integumentary/Breasts Denies erythema and Denies sores Neurologic Denies confusion, Denies vertigo, Denies dizziness, Denies syncope, Denies loss of vision and Denies weakness Psychiatric Denies confusion, Denies irritability and Denies mood swings Hematologic/Lymphatic Denies easy bleeding and Denies easy bruising Allergic/Immunologic Denies wheezing Meds Home Medications Medication Instructions Recorded Confirmed Type Kiana 180 mg PO DAILY tab-cap 04/20/14 07/26/18 History metformin 1,000 mg PO BID #180 tab-cap 04/20/14 07/26/18 History omeprazole [Prilosec] 20 mg PO DAILY tab-cap 04/20/14 07/26/18 History spironolactone 50 mg PO BID tab-cap 04/20/14 07/26/18 History gabapentin 100 mg TID 04/22/18 07/26/18 History Allergies Allergy/AdvReac Type Severity Reaction Status Date / Time No Known Allergies Allergy Unverified 07/26/18 08:16 Exam Const General: cooperative, comfortable and well developed Nutritional Appearance: overweight Orientation: alert, awake and oriented x3 HENMT Head: normal to inspection, normocephalic and atraumatic Ears: hearing grossly normal bilaterally General nose exam: external nose normal Face and sinus: normal facial exam Mouth: oral mucosae normal Eyes General: appearance normal, both eyes and all related structures Periorbital: periorbital findings normal Sclera: sclerae normal Pupils: PERRL EOM: EOM intact bilaterally Neck Neck: normal visual inspection, full ROM, trachea midline and supple Chest Chest: normal inspection of the chest Resp Effort & Inspection: normal respiratory effort Auscultation: clear to auscultation bilaterally Cardio Jugular venous pressure: no JVD Rate: regular rate Rhythm: regular rhythm Heart Sounds: S1 normal and S2 normal GI Inspection: non-distended Palpation: soft, no guarding and nontender Rectal Exam - female: deferred Skin General skin exam: no rashes or lesions noted and turgor normal Hair: normal Neuro General: moves all extremities, no focal motor deficits and CN's II-XI intact bilaterally Extrem General: normal capillary refill and no clubbing, cyanosis or edema Psych Appearance: grossly normal Mental Status: mental status grossly normal Affect: normal affect Judgment: judgment good Results Labs : 07/26/18 08:40 Laboratory Results - last 24 hr 07/26/18 08:40 WBC 3.69 L RBC 4.16 Hgb 12.3 Hct 36.4 MCV 87.5 MCH 29.6 MCHC 33.8 RDW 19.7 H Plt Count 270 MPV 9.5 Last Vital Signs Temp 36.0 C L 07/26/18 08:26 Pulse 87 07/26/18 08:26 Resp 16 07/26/18 08:26 BP 125/79 07/26/18 08:26 Pulse Ox 95 07/26/18 08:26
[2018-07-26] MEDS: Lidocaine 1% Pres-Free 5 ML VIAL (11:44)
[2018-07-26] MEDS: Normal Saline 50 ML 15 ML (12:37)
[2018-07-26] MEDS: Heparin 500 UNITS/5 ML SYRINGE (12:39)
--- NOTE | 2018-07-26 12:53 | W.PM.OP ---
Date of service: 07/26/18 Time of Service: 12:53 Operative Note DATE OF PROCEDURE: 07/26/18 PRE-OP DIAGNOSIS: Rectal Cancer POST-OP DIAGNOSIS: same PROCEDURE: Central venous access with subcutaneous port placement SURGEON: Luther Lim WEAVER DOBBY LOOM: Maria De Jesus Gipson ANESTHESIA: MAC (Marcie Maher CRNA; ASA 3 Mallampati class II) ESTIMATED BLOOD LOSS: 1 PATHOLOGY: none sent COMPLICATIONS: None Patient was transported to: same day Patient's condition: stable Implants: Bard MRI port lot number [id number] Indications: 63-year-old woman requiring central venous access with a subcutaneous port for therapeutic and diagnostic treatments due to rectal cancer. Findings: Post procedure chest x-ray demonstrated no pneumothorax and the tip of the catheter in the superior vena cava just above the right atrium. Procedure Description: The patient was brought to the operating room, and positioned supine. The right chest and neck were prepped with ChloraPrep and block draped in a standard sterile fashion, so that either the right subclavian, or internal jugular vein could be accessed. An appropriate timeout was performed which reviewed the patient's identification, allergies, medications, and procedure. I began by accessing the right subclavian vein. After 2 attempts by anatomic reference, I was unable to access the right subclavian vein; I then accessed the right internal jugular vein under direct ultrasound guidance. Once the vein was cannulated, I passed a guide wire down to the superior vena cava. which was confirmed by fluoroscopy. A pocket was then created in the [position] anterior chest wall. A 3 cm linear transverse incision was made in the skin, and the subcutaneous tissue was divided down to the fascia overlying the pectoralis major. Blunt dissection was then used to create a pocket inferior to the incision over the pectoralis major fascia. Once the pocket was created I then passed the catheter from the port pocket up to the wire access point in the skin subcutaneously. The skin incision at the wire was then widened using an 11 blade to allow the catheter to pass through. I then passed a introducer dilator sheath over the wire into the vein to the hilt of the introducer sheath which was done under fluoroscopic visualization. The wire was then removed, and the catheter advanced into the introducer sheath to 25 cm. Introducer sheath was then removed with care. I checked the positioning of the tip of the catheter by flouroscopy and repositioned the catheter tip so that it was in the superior vena cava just above the right atrium. I then trimmed the exterior portion of the catheter passing through the port pocket, and attached the port to the catheter by clipping the port hub into place over the catheter. Three-point fixation was then used to parachute the port into the port pocket using the fixation sutures. 2-0 Prolene was used as the three-point fixation stay sutures. The port was tested by withdrawing and flushing with saline. Under fluoroscopy I checked the path of the catheter from the port to its tip and saw no evidence of kinks or breaks. I then closed the incision over the port. The subcutaneous tissue was approximated using 3-0 Vicryl suture in simple inverted mattress stitches. The skin was closed using 4-0 Vicryl suture in a running subcuticular fashion. I again tested the port through the skin by withdrawing and then flushing with heparinized saline, 100: 1 units/mls. Skin affix glue was then applied to the incision. There were no complications during the case, in the past patient tolerated the procedure well. All counts were reported as correct x2. Postprocedure chest x-ray demonstrated no pneumothorax and the tip of the catheter in the superior vena cava
--- NOTE | 2018-07-26 13:02 | ROE_ITS ---
Date of service: 07/26/18 Time of Service: 12:53 Operative Note DATE OF PROCEDURE: 07/26/18 PRE-OP DIAGNOSIS: Rectal Cancer POST-OP DIAGNOSIS: same PROCEDURE: Central venous access with subcutaneous port placement SURGEON: Luther Lim OXYGEN THERAPIST: Maria De Jesus Gipson ANESTHESIA: MAC (Marcie Maher CRNA; ASA 3 Mallampati class II) ESTIMATED BLOOD LOSS: 1 PATHOLOGY: none sent COMPLICATIONS: None Patient was transported to: same day Patient's condition: stable Implants: Bard MRI port lot number [id number] Indications: 63-year-old woman requiring central venous access with a subcutaneous port for therapeutic and diagnostic treatments due to rectal cancer. Findings: Post procedure chest x-ray demonstrated no pneumothorax and the tip of the catheter in the superior vena cava just above the right atrium. Procedure Description: The patient was brought to the operating room, and positioned supine. The right chest and neck were prepped with ChloraPrep and block draped in a standard sterile fashion, so that either the right subclavian, or internal jugular vein could be accessed. An appropriate timeout was performed which reviewed the patient's identification, allergies, medications, and procedure. I began by accessing the right subclavian vein. After 2 attempts by anatomic reference, I was unable to access the right subclavian vein; I then accessed the right internal jugular vein under direct ultrasound guidance. Once the vein was cannulated, I passed a guide wire down to the superior vena cava. which was confirmed by fluoroscopy. A pocket was then created in the [position ] anterior chest wall. A 3 cm linear transverse incision was made in the skin, and the subcutaneous tissue was divided down to the fascia overlying the pectoralis major. Blunt dissection was then used to create a pocket inferior to the incision over the pectoralis major fascia. Once the pocket was created I then passed the catheter from the port pocket up to the wire access point in the skin subcutaneously. The skin incision at the wire was then widened using an 11 blade to allow the catheter to pass through. I then passed a introducer dilator sheath over the wire into the vein to the hilt of the introducer sheath which was done under fluoroscopic visualization. The wire was then removed, and the catheter advanced into the introducer sheath to 25 cm. Introducer sheath was then removed with care. I checked the positioning of the tip of the catheter by flouroscopy and repositioned the catheter tip so that it was in the superior vena cava just above the right atrium. I then trimmed the exterior portion of the catheter passing through the port pocket, and attached the port to the catheter by clipping the port hub into place over the catheter. Three-point fixation was then used to parachute the port into the port pocket using the fixation sutures. 2-0 Prolene was used as the three-point fixation stay sutures. The port was tested by withdrawing and flushing with saline. Under fluoroscopy I checked the path of the catheter from the port to its tip and saw no evidence of kinks or breaks. I then closed the incision over the port. The subcutaneous tissue was approximated using 3-0 Vicryl suture in simple inverted mattress stitches. The skin was closed using 4 -0 Vicryl suture in a running subcuticular fashion. I again tested the port through the skin by withdrawing and then flushing with heparinized saline, 100: 1 units/mls. Skin affix glue was then applied to the incision. There were no complications during the case, in the past patient tolerated the procedure well. All counts were reported as correct x2. Postprocedure chest x-ray demonstrated no pneumothorax and the tip of the catheter in the superior vena cava
--- NOTE | 2018-07-26 13:02 | W.PM.DSUDISC ---
Discharge Plan Disposition Patient Disposition: HOME Condition: Good Discharge Details Reason For Visit: Port placement Attending Provider: Luther Lim Primary Care Provider: Татьяна Rothman Home Meds and New Rx's Prescriptions: No Action ZHANNA 180 MG tablet 180 mg PO DAILY RF: 0 spironolactone 25 MG tablet 50 mg PO BID RF: 0 omeprazole [Prilosec] 20 MG capsule,delayed release(DR/EC) 20 mg PO DAILY RF: 0 metformin 1,000 MG tablet 1,000 mg PO BID Qty: 180 RF: 3 gabapentin 100 MG capsule 100 mg TID RF: 0 Discharge Instructions Instructions: Implanted Venous Access Port (DC), How to Care for Your Implanted Venous Access Port (DC), How to Care for Your Implanted Venous Access Port (GEN) Activity:: Activity as Tolerated Remove Dressings/Wound Care:: Do Not Remove Shower/Bathe:: 24 hours Diet:: As Tolerated Discharge Orders Discharge Orders: Discharge Order (Routine); Ordered 07/26/18 Ordered By: Luther Lim DS: Diagnosis Discharge Diagnosis (1) Adenocarcinoma: Status: Acute Asessment and Plan: Port placed into the right interjugular vein.
--- NOTE | 2018-07-26 13:06 | DI.RAD_ITS ---
SYMPTOMS/DIAGNOSIS: LINE PLACEMENT PORTABLE CHEST: Comparison is made with August,. Exam is limited by suboptimal technique. A port is noted over the right upper chest. The lungs are suboptimally inflated but appear clear. IMPRESSION: No acute abnormality.
[2018-07-26 13:30] VITALS: BP 102/57; PULSE 69; RESP 16; TEMP 36.5; O2SAT 98
[2018-07-26 13:55] VITALS: BP 113/61; PULSE 75; RESP 16; TEMP 36.7; O2SAT 95
[2018-07-27 13:22] LABS: ALT 25 U/L (12-78); AST 15 U/L (15-37); Albumin 3.7 g/dL (3.4-5.0); Alkaline Phosphatase 115 U/L (46-116); Anion Gap 17.4 mmol/L (3-11); BUN 23 mg/dL (7-18); Bilirubin, Total 0.1 mg/dL (0.2-1.0); CO2 18.6 mmol/L (21.0-32.0); CREATININE 1.04 mg/dL (0.55-1.02); Calcium 8.9 mg/dL (8.5-10.1); Chloride 104 mmol/L (98-107); Estimated GFR 53.87 (mL/min/1.73m2); Glucose 169 mg/dL (70-100); Potassium 4.1 mmol/L (3.5-5.1); Sodium 140 mmol/L (136-145); Total Protein 6.7 g/dL (6.4-8.2)
[2018-07-28 10:07] LABS: CEA 2.8 ng/ml
== END 2018-07-26 14:11 | disposition home or self-care (01) ==
PROVIDERS: Internal Medicine Hematology & Oncology; Nurse Practitioner Family; PCP Nurse Practitioner Family; Visit Provider Surgery
PROC: (CPT 36561; principal; 2018-07-26 09:00)
DX: C20 Malignant neoplasm of rectum (principal); Z45.2 Encounter for adjustment and management of vascular access device; G47.33 Obstructive sleep apnea (adult) (pediatric); K21.9 Gastro-esophageal reflux disease without esophagitis
CPT/HCPCS: 36561; 36415; 77001; 80053; 85027; NC; 71045; 82378; C1788; J0690; J2250; J2405; J3010

== ENCOUNTER 2018-08-08 02:03 | Outpatient (RCR) | payer MEDICAID, SELFPAY ==
[2018-08-08] MEDS: Normal Saline Flush 10 ML SYR IVP (14:08)
[2018-08-08] MEDS: Heparin 500 UNITS/5 ML SYRINGE IV (14:09)
[2018-08-08 14:26] LABS: Abs Immature Grans 0.01 k/cumm (0.0-0.09); Absolute Basophil Count 0.03 k/cumm (0.0-0.2); Absolute Eosinophil Count 0.32 k/cumm (0.0-0.7); Absolute Lymphocyte Count 0.69 k/cumm (1.2-3.4); Absolute Monocyte Count 0.67 k/cumm (0.11-0.7); Basophils % 0.8; Eosinophils % 8.3; HCT 35.8 % (36.0-46.0); HGB 11.9 g/dL (12.0-15.5); Immature Grans % 0.3; Lymphocytes % 17.9; Mean Corp. HGB Concentration 33.2 g/dL (32.0-36.0); Mean Corpuscular Hemoglobin 29.3 pg (27.0-33.0); Mean Corpuscular Volume 88.2 fL (80-95); Mean Platelet Volume 9.3 fL (8.0-11.0); Monocytes % 17.4; Neutrophils % 55.3; Platelet Count 254 x1000/uL (130-400); RBC 4.06 m/cumm (4.00-5.20); White Blood Cell Count 3.86 k/cumm (4.4-10.8)
[2018-08-08 14:28] LABS: Absolute Neutrophil Count 2.13 k/cumm (1.2-6.7)
[2018-08-08 14:36] LABS: ALT 22 U/L (12-78); AST 13 U/L (15-37); Albumin 3.6 g/dL (3.4-5.0); Alkaline Phosphatase 124 U/L (46-116); Anion Gap 12.1 mmol/L (3-11); BUN 23 mg/dL (7-18); Bilirubin, Total 0.2 mg/dL (0.2-1.0); CO2 23.9 mmol/L (21.0-32.0); CREATININE 0.98 mg/dL (0.55-1.02); Calcium 8.9 mg/dL (8.5-10.1); Chloride 101 mmol/L (98-107); Glucose 122 mg/dL (70-100); Potassium 4.1 mmol/L (3.5-5.1); Sodium 137 mmol/L (136-145); Total Protein 7.3 g/dL (6.4-8.2)
[2018-08-09 09:39] LABS: CEA 3.2 ng/ml
== END 2018-08-29 23:59 | disposition home or self-care (01) ==
LOC: INF 02:03
PROVIDERS: PCP Nurse Practitioner Family; Visit Provider Internal Medicine Hematology & Oncology
DX: C20 Malignant neoplasm of rectum (principal); Z45.2 Encounter for adjustment and management of vascular access device
CPT/HCPCS: 36591; 80053; 82378; 85025

== ENCOUNTER 2018-09-12 08:24 | Outpatient (CLI) | payer MEDICAID, SELFPAY ==
[2018-09-12] MEDS: Omnipaque 350 MG/ML 50 ML BTL PO (10:03)
--- NOTE | 2018-09-12 11:48 | DI.CT_ITS ---
SYMPTOMS/DIAGNOSIS: PT COMPLETED TREATMENT FOR COLON CA, RESTAGING CT OF THE CHEST, ABDOMEN AND PELVIS: Comparison is made with [id number] abdomen [address] pelvic CT and chest, abdomen and pelvic CT of [id number]. Images were performed from the clavicles through the ischial tuberosities after IV and oral contrast. CHEST CT: A port is seen with the tip in the superior vena cava. The heart size appears normal. No pleural or pericardial effusions or adenopathy is seen. An azygous lobe, a normal variant is noted. No pulmonary nodules or infiltrates are seen. There is a change in a tiny sclerotic focus in the T 5 vertebral body. No suspicious lytic or blastic lesions are seen. IMPRESSION: No evidence of metastatic disease or other acute abnormality in the chest. ABDOMEN AND PELVIC CT: The liver shows fatty infiltration. No focal liver lesions are seen. The patient appears to be status post cholecystectomy. The spleen, adrenals, pancreas and kidneys are unremarkable. A small right renal cyst is noted. There are a few other tiny renal cysts. There is a large defect in the left lower quadrant abdominal wall with multiple loops of bowel herniating through the defect without evidence of obstruction. The hernia is increased in size and contains a portion of the colon. There now appears to be significant rectocele. The cecum and terminal ileum as well as a portion of the sigmoid extend inferiorly and extends outside the field of view. The urinary bladder now appears thickened. The findings could be related to treatment vs cystitis. No adenopathy or recurrent mass is seen. There is no evidence of ascites. No suspicious bony lesions are identified. IMPRESSION: 1. No evidence of metastatic or recurrent disease. 2. Increased size of left lower quadrant peristomal hernia now containing several loops of colon. 3. Large rectocele containing the cecum, terminal ileum as well as portion of the sigmoid colon.
[2018-09-12] MEDS: Omnipaque 350 MG/ML 100 ML BTL IJ (11:50)
[2018-09-12] MEDS: Breeza Beverage 473 ML BTL PO (11:51)
== END 2018-09-12 08:44 ==
PROVIDERS: PCP Nurse Practitioner Family; Visit Provider Nurse Practitioner Adult Health
DX: C20 Malignant neoplasm of rectum (principal); N81.6 Rectocele; K43.5 Parastomal hernia without obstruction or gangrene; K76.0 Fatty (change of) liver, not elsewhere classified; Z12.89 Encounter for screening for malignant neoplasm of other sites
CPT/HCPCS: 36415; 74177; 80053; 71260; 85025; J3490; Q9967

== ENCOUNTER 2018-09-12 09:00 | Outpatient (RCR) | payer MEDICAID, SELFPAY ==
[2018-09-12] MEDS: Normal Saline Flush 10 ML SYR IVP (09:46)
[2018-09-12 09:59] LABS: Abs Immature Grans 0.02 k/cumm (0.0-0.09); Absolute Basophil Count 0.04 k/cumm (0.0-0.2); Absolute Lymphocyte Count 0.69 k/cumm (1.2-3.4); Absolute Monocyte Count 0.69 k/cumm (0.11-0.7); Absolute Neutrophil Count 5.63 k/cumm (1.2-6.7); Basophils % 0.5; Eosinophils % 5.4; HCT 38.2 % (36.0-46.0); HGB 12.5 g/dL (12.0-15.5); Immature Grans % 0.3; Lymphocytes % 9.2; Mean Corp. HGB Concentration 32.7 g/dL (32.0-36.0); Mean Corpuscular Hemoglobin 29.3 pg (27.0-33.0); Mean Corpuscular Volume 89.5 fL (80-95); Mean Platelet Volume 9.6 fL (8.0-11.0); Monocytes % 9.2; Neutrophils % 75.4; Platelet Count 286 x1000/uL (130-400); RBC 4.27 m/cumm (4.00-5.20); RBC Distribution Width 17.4 % (11.7-14.6); White Blood Cell Count 7.47 k/cumm (4.4-10.8)
[2018-09-12 10:16] LABS: ALT 22 U/L (12-78); AST 13 U/L (15-37); Albumin 3.4 g/dL (3.4-5.0); Alkaline Phosphatase 145 U/L (46-116); Anion Gap 13.7 mmol/L (3-11); BUN 22 mg/dL (7-18); Bilirubin, Total 0.2 mg/dL (0.2-1.0); CO2 20.3 mmol/L (21.0-32.0); CREATININE 1.28 mg/dL (0.55-1.02); Calcium 9.3 mg/dL (8.5-10.1); Chloride 105 mmol/L (98-107); Estimated GFR 42.39 (mL/min/1.73m2); Glucose 217 mg/dL (70-100); Potassium 3.9 mmol/L (3.5-5.1); Sodium 139 mmol/L (136-145); Total Protein 7.4 g/dL (6.4-8.2)
[2018-09-13 11:03] LABS: CEA 2.4 ng/ml
== END 2018-09-29 23:59 | disposition home or self-care (01) ==
LOC: INF 09:00
PROVIDERS: PCP Nurse Practitioner Family; Visit Provider Internal Medicine Hematology & Oncology
DX: C20 Malignant neoplasm of rectum (principal); Z45.2 Encounter for adjustment and management of vascular access device
CPT/HCPCS: 36415; 80053; 82378; 85025

== ENCOUNTER 2018-09-14 12:12 | Outpatient (REF) | payer MEDICAID, SELFPAY | END 2018-09-14 12:32 | LOC: LBN 12:12 | PROVIDERS: PCP Nurse Practitioner Family; Visit Provider Nurse Practitioner Gerontology | DX: N39.0 Urinary tract infection, site not specified (principal); B96.20 Unspecified Escherichia coli [E. coli] as the cause of diseases classified elsewhere | CPT/HCPCS: 87077; 87086; 87186 ==

== ENCOUNTER 2018-10-05 11:26 | Day surgery (SDC) | payer SELFPAY ==
--- NOTE | 2018-10-05 07:12 | W.PM.OP ---
Date of service: 10/05/18 Time of Service: 14:01 Operative Note DATE OF PROCEDURE: 10/05/18 PRE-OP DIAGNOSIS: Hx of rectal Cancer POST-OP DIAGNOSIS: same PROCEDURE: Port-a-cath removal SURGEON: Marlen Blanchard [employer]ESSER [employer] SH[employer] K[employer]ITTED GOODS: Maria De Jesus Gipson ANESTHESIA: local (2% Lidocaine mixed 50/50 with bupivocaine 0.5% with epinephrine) ESTIMATED BLOOD LOSS: 3 PATHOLOGY: none sent COMPLICATIONS: None Patient was transported to: same day Patient's condition: stable Indications: Mrs. Pacheco is a pleasant 63-year-old female who was diagnosed with colorectal cancer. She had a port placed for chemotherapy. She tells me that a small area in the middle of the scar never healed. She was treated with a couple of doses of antibiotics while she still was getting her treatments. She is now done with chemotherapy and is ready to have the port removed. Risks, benefits, complications were reviewed with her and she wished to proceed. Findings: Small 3 mm area of fat necrosis tunneling down to the port. No purulent discharge. There is no erythema around the skin. Procedure Description: After informed consent was obtained patient was taken to the operating room placed in supine position and monitors were applied. A timeout was done and the patient's name date of , procedure type, allergies to medications were reviewed. Her skin was then prepped with ChloraPrep. The skin and subcutaneous tissue was infiltrated with the above lidocaine mixture. Once the skin was numb the old incision was reopened with a 15 blade going around at the little area of tunneling. The knife was used to go down through the subcutaneous tissue until the capsule was noted around the port. Hemostat was then used to enter the capsule and find the catheter. While placing pressure underneath the clavicle the catheter was pulled out with a hemostat. The 3 Prolene sutures which had been placed in order to secure the port were cut and the port was removed from the pocket. Because there was some necrotic tissue that have been noted and the opening that went down to the pocket that was chronic I decided to leave the wound open. It was irrigated with some saline. A moist 2 x 2 was then placed gently into the wound and it was covered with dry 4 x 4's and secured with Tegaderm. The patient was gently set up and then taken back to same day surgery in stable condition. Sponge instrument and needle counts were correct at the end of the case. The patient tolerated the procedure well and there were no immediate complications.
--- NOTE | 2018-10-05 07:13 | W.PM.HP.N ---
Date of service: 10/05/18 Assessment and Plan (1) Hx of malignant neoplasm of rectum: Current visit: No Status: Resolved A\\ Hx of rectal cancer, s/p chemotherapy P\\ removal of Port-a-cath under local Risks, benefits, complications were reviewed with her in same day surgery. Complications include but are not limited to infection, wound dehiscence, seroma, hematoma and adverse reaction to the medication. Questions were entertained and answered to her satisfaction and she wished to proceed. No guarantees were given or implied. (2) Fever: Current visit: Yes Status: Acute Rapid flu A/B- negative UA PENDING CBC pending History of Present Illness Chief Complaint: Port-a-cath removal Narrative: Mrs. Pacheco is a pleasant 63 year old female who has finished her treatment for colorectal cancer. She is ready to have her Port-a-cath removed. Risks, benefits, complications were reviewed with her and she wished to proceed. No guarantees were given or implied. She is not feeling well today. She has had a fever. here in SDS her Temp is 38.2. She has a dry cough. NO SOB, no chest pain. She was just treated for a UTI and finished a course of Levaquin. She is treated for that by Dr. Antony. She called them today as she thinks she has another UTI. They have asked for a urine sample. I will get that today before she leaves. Her port does have a chronic opening in the middle of her scar. Not draining any purulent discharge and no erythema. This has been chronically open with a scab at times. We did check her for the Flu and that was negative. Review of Systems Constitutional Reports fever(s) and Reports weakness Cardiovascular Denies chest pain, Denies chest pain at rest, Denies chest pain with activity, Denies irregular heart rhythm, Denies palpitations, Denies dyspnea and Denies dyspnea on exertion Respiratory Reports cough (non-productive), Denies dyspnea and Denies dyspnea on exertion Gastrointestinal Denies abdominal pain Genitourinary Comments: currently being treated for UTI Integumentary/Breasts Comments: non-healing scar over the port Neurologic Reports weakness Endocrine Denies palpitations [facility] Medical History Hx of malignant neoplasm of rectum (Resolved) History of rectal cancer (Acute) Surgical procedures, elective (Resolved 11/27/18) Arthralgia Hyperlipidemia Low back pain ISIAH (obstructive sleep apnea) PCOS (polycystic ovarian syndrome) Vitamin D deficiency Surgical History History of creation of ostomy (Acute) H/O colonoscopy (Resolved 07/15/18) History of colon resection (Resolved) Colonoscopy - MAC (07/27/17) Dilation and curettage Hysterectomy, Laproscopic Social History Smoking/Tobacco Use Status: Never alcohol intake: never substance use type: does not use Meds Home Medications Medication Instructions Recorded Confirmed Type Kiana 180 mg PO DAILY tab-cap 04/20/14 10/05/18 History metformin 1,000 mg PO BID #180 tab-cap 04/20/14 10/05/18 History omeprazole [Prilosec] 40 mg PO DAILY tab-cap 04/20/14 10/05/18 History spironolactone 50 mg PO BID tab-cap 04/20/14 10/05/18 History gabapentin 100 mg PO TID 04/22/18 10/05/18 History ciprofloxacin 500 mg tablet 500 mg PO BID #14 tab 09/14/18 10/05/18 Rx acetaminophen 975 mg PO Q6H PRN 10/03/18 10/05/18 History ibuprofen 600 mg PO QID PRN 10/03/18 10/05/18 History levofloxacin [Levaquin] 500 mg PO DAILY 10/03/18 10/05/18 History ondansetron HCl 8 mg PO TID PRN 10/03/18 10/05/18 History polyethylene glycol 3350 [Miralax] 17 g PO BID 10/03/18 10/05/18 History prochlorperazine maleate 10 mg PO Q6H PRN PRN 10/03/18 10/05/18 History [Compazine] Allergies Allergy/AdvReac Type Severity Reaction Status Date / Time No Known Allergies Allergy Unverified 08/22/18 12:07 Exam Const General: cooperative Orientation: alert and oriented x3 Chest Other: scar on the right chest- in the middle there is an opening. No purulent discharge. Chest/axillae images: 1. 2. 3. Resp Effort & Inspection: normal respiratory effort Auscultation: clear to auscultation bilaterally Cardio Rate: regular rate Rhythm: regular rhythm Heart Sounds: no gallops, no murmurs and no rubs Results Labs : 10/05/18 14:27
--- NOTE | 2018-10-05 07:18 | HPE_ITS ---
Date of service: 10/05/18 Assessment and Plan (1) Hx of malignant neoplasm of rectum: Current visit: No Status: Resolved A\\ Hx of rectal cancer, s/p chemotherapy P\\ removal of Port-a-cath under local Risks, benefits, complications were reviewed with her in same day surgery. Complications include but are not limited to infection, wound dehiscence, seroma, hematoma and adverse reaction to the medication. Questions were e ntertained and answered to her satisfaction and she wished to proceed. No guarantees were given or implied. (2) Fever: Current visit: Yes Status: Acute Rapid flu A/B- negative UA PENDING CBC pending History of Present Illness Chief Complaint: Port-a-cath removal Narrative: Mrs. Pacheco is a pleasant 63 year old female who has finished her treatment for colorectal cancer. She is ready to have her Port-a-cath removed. Risks, benefits, complications were reviewed with her and she wished to proceed. No guarantees were given or implied. She is not feeling well today. She has had a fever. here in SDS her Temp is 38.2. She has a dry cough. NO SOB, no chest pain. She was just treated for a UTI and finished a course of Levaquin. She is treated for that by Dr. Antony. She called them today as she thinks she has another UTI. They have asked for a urine sample. I will get that today before she leaves. Her port does have a chronic opening in the middle of her scar. Not draining any purulent discharge and no erythema. This has been chronically open with a scab at times. We did check her for the Flu and that was negative. Review of Systems Constitutional Reports fever(s) and Reports weakness Cardiovascular Denies chest pain, Denies chest pain at rest, Denies chest pain with activity, Denies irregular heart rhythm, Denies palpitations, Denies dyspnea and Denies dyspnea on exertion Respiratory Reports cough (non-productive), Denies dyspnea and Denies dyspnea on exertion Gastrointestinal Denies abdominal pain Genitourinary Comments: currently being treated for UTI Integumentary/Breasts Comments: non-healing scar over the port Neurologic Reports weakness Endocrine Denies palpitations [facility] Medical History Hx of malignant neoplasm of rectum (Resolved) History of rectal cancer (Acute) Surgical procedures, elective (Resolved 07/26/18) Arthralgia Hyperlipidemia Low back pain ISIAH (obstructive sleep apnea) PCOS (polycystic ovarian syndrome) Vitamin D deficiency Surgical History History of creation of ostomy (Acute) H/O colonoscopy (Resolved 07/15/18) History of colon resection (Resolved) Colonoscopy - MAC (07/27/17) Dilation and curettage Hysterectomy, Laproscopic Social History Smoking/Tobacco Use Status: Never alcohol intake: never substance use type: does not use Meds Home Medications Medication Instructions Recorded Confirmed Type Kiana 180 mg PO DAILY tab-cap 04/20/14 10/05/18 History metformin 1,000 mg PO BID #180 tab-cap 04/20/14 10/05/18 History omeprazole [Prilosec] 40 mg PO DAILY tab-cap 04/20/14 10/05/18 History spironolactone 50 mg PO BID tab-cap 04/20/14 10/05/18 History gabapentin 100 mg PO TID 04/22/18 10/05/18 History ciprofloxacin 500 mg tablet 500 mg PO BID #14 tab 09/14/18 10/05/18 Rx acetaminophen 975 mg PO Q6H PRN 10/03/18 10/05/18 History ibuprofen 600 mg PO QID PRN 10/03/18 10/05/18 History levofloxacin [Levaquin] 500 mg PO DAILY 10/03/18 10/05/18 History ondansetron HCl 8 mg PO TID PRN 10/03/18 10/05/18 History polyethylene glycol 3350 [Miralax] 17 g PO BID 10/03/18 10/05/18 History prochlorperazine maleate 10 mg PO Q6H PRN PRN 10/03/18 10/05/18 History [Compazine] Allergies Allergy/AdvReac Type Severity Reaction Status Date / Time No Known Allergies Allergy Unverified 08/22/18 12:07 Exam Const General: cooperative Orientation: alert and oriented x3 Chest Other: scar on the right chest- in the middle there is an opening. No purulent discharge. Chest/axillae images: 1. 2. 3. Resp Effort & Inspection: normal respiratory effort Auscultation: clear to auscultation bilaterally Cardio Rate: regular rate Rhythm: regular rhythm Heart Sounds: no gallops, no murmurs and no rubs Results Labs : 10/05/18 14:27
--- NOTE | 2018-10-05 07:18 | W.PM.DSUDISC ---
Discharge Plan Disposition Patient Disposition: HOME Condition: Good Discharge Details Reason For Visit: port-a-cath removal Attending Provider: Marlen Blanchard Primary Care Provider: Татьяна Rothman Home Meds and New Rx's Prescriptions: New sulfamethoxazole-trimethoprim [Bactrim DS] 800-160 mg tablet 1 tab PO BID Qty: 14 RF: 0 Continued ZHANNA 180 MG tablet 180 mg PO DAILY RF: 0 spironolactone 25 MG tablet 50 mg PO BID RF: 0 omeprazole [Prilosec] 20 MG capsule,delayed release(DR/EC) 40 mg PO DAILY RF: 0 metformin 1,000 MG tablet 1,000 mg PO BID Qty: 180 RF: 3 gabapentin 100 MG capsule 100 mg PO TID RF: 0 acetaminophen 325 mg Tablet 975 mg PO Q6H PRNRF: 0 polyethylene glycol 3350 [Miralax] 17 gram Powder In Packet 17 g PO BID RF: 0 ondansetron HCl 8 mg Tablet 8 mg PO TID PRNRF: 0 prochlorperazine maleate [Compazine] 10 mg Tablet 10 mg PO Q6H PRN PRNRF: 0 ibuprofen 600 mg Tablet 600 mg PO QID PRNRF: 0 levofloxacin [Levaquin] 500 mg Tablet 500 mg PO DAILY RF: 0 Discontinued ciprofloxacin HCl 500 mg tablet 500 mg PO BID Qty: 14 RF: 0 Discharge Instructions Instructions: Acute Wound Care (DC) Additional Instructions: Activity at Home after surgery: 1. Make sure you walk outside at least 4 times per day 2. You should be able to climb a flight of stairs 3. No driving while in pain or taking pain medications Diet, Nutrition, & wound healin. Avoid alcohol until after you are recovered from your surgery 2. Make sure to eat plenty of lean protein (meat, fish, eggs, cottage cheese, beans) 3. Eat a variety of fruits and vegetables. Eat plenty of high fiber foods to avoid constipation. 4. Drink plenty of liquids to stay hydrated and avoid constipation Pain Medications: 1. Alternate Tylenol 1000 mg and Ibuprofen 600 mg every 3 hours For Constipation: 1. Take Milk of Magnesia or MiraLax as needed for constipation Other: 1. You may shower daily. Do not scrub the incisions. remove the dressing prior to getting in the shower. let warm soapy water run over it. Pat dry and then place a moist 2x2 slightly into the wound and cover with a large bad aid. Change once a day 2. Do not soak the incisions for 1 week 3. You may alternate ice and heat as needed for pain and swelling Wound Care: 1. Keep the incisions clean and dry Other Services that may have been ordered: 0 Home Health- to help with dressing changes 0 Outpatient physical therapy Please call our office if you develop: 1. Fevers >101.5 2. Nausea or Vomiting 3. Worsening pain 4. Redness and thick discharge from the wounds If after hours please call the Hospital at and ask to speak to the on-call surgeon Stand Alone Forms: Callie Hilton ([facility]U) Referrals: Maria De Jesus Gipson PA [[facility] [facility]] - 10/07/18 11:45 am Ernestian Salinas [NURSE PRACTITIONER] - 10/06/18 1:45 pm Activity:: Activity as Tolerated Diet:: As Tolerated Discharge Orders Discharge Orders: Discharge Order (Routine); Ordered 10/05/18 Ordered By: Marlen Blanchard DS: Diagnosis Discharge Diagnosis (1) Hx of malignant neoplasm of rectum: Status: Resolved
[2018-10-05 11:31] VITALS: BP 124/74; PULSE 111; RESP 18; TEMP 38.8; O2SAT 94
[2018-10-05] MEDS: Lidocaine 2% Multi-Dose 50 ML VIAL (14:11)
[2018-10-05 14:49] LABS: Abs Immature Grans 0.02 k/cumm (0.0-0.09); Absolute Basophil Count 0.02 k/cumm (0.0-0.2); Absolute Eosinophil Count 0.02 k/cumm (0.0-0.7); Absolute Lymphocyte Count 0.67 k/cumm (1.2-3.4); Absolute Monocyte Count 1.22 k/cumm (0.11-0.7); Absolute Neutrophil Count 5.13 k/cumm (1.2-6.7); Basophils % 0.3; Eosinophils % 0.3; HCT 38.8 % (36.0-46.0); HGB 12.3 g/dL (12.0-15.5); Immature Grans % 0.3; Lymphocytes % 9.5; Mean Corp. HGB Concentration 31.7 g/dL (32.0-36.0); Mean Corpuscular Hemoglobin 28.2 pg (27.0-33.0); Mean Platelet Volume 9.6 fL (8.0-11.0); Monocytes % 17.2; Neutrophils % 72.4; Platelet Count 182 x1000/uL (130-400); RBC 4.36 m/cumm (4.00-5.20); RBC Distribution Width 16.1 % (11.7-14.6); White Blood Cell Count 7.08 k/cumm (4.4-10.8)
[2018-10-05 14:58] LABS: Bilirubin Negative (Negative); Blood Trace-lysed (Negative); Clarity Sl Cloudy; Glucose Negative (Negative); Ketones Negative (Negative); Leukocyte Esterase Moderate (Negative); Nitrite Negative (Negative); Urobilinogen 0.2 EU/dL (Up TO 0.2)
[2018-10-05 15:07] LABS: Bacteria Moderate HPF (Negative); C & S Indicated? Yes; Casts Negative LPF (Negative); Crystals Negative HPF (Negative); Epithelial Cells Few HPF (Negative); Mucus Trace (Negative)
[2018-10-10 12:27] LABS: Influenza B RNA Result Negative (Negative); RSV RNA Result Negative (Negative)
[2018-10-10 12:28] LABS: Influenza A RNA Result Positive (Negative)
== END 2018-10-05 15:47 | disposition home or self-care (01) ==
LOC: SUR 11:27
PROVIDERS: PCP Nurse Practitioner Family; Visit Provider Surgery
PROC: (CPT 36590; principal; 2018-10-05 12:15)
DX: C20 Malignant neoplasm of rectum (principal); Z45.2 Encounter for adjustment and management of vascular access device
CPT/HCPCS: 36590; 87077; 87449; 87631; NC; 81003; 81015; 85025; 87086; 87186

== ENCOUNTER → 2019-01-06 08:28 | Outpatient (CLI) | payer OTHER, SELFPAY ==
[2019-01-06 10:28] LABS: ALT 29 U/L (12-78); AST 16 U/L (15-37); Albumin 3.7 g/dL (3.4-5.0); Alkaline Phosphatase 126 U/L (46-116); BUN 19 mg/dL (7-18); Bilirubin, Total 0.2 mg/dL (0.2-1.0); Calcium 9.4 mg/dL (8.5-10.1); Chloride 103 mmol/L (98-107); Glucose 175 mg/dL (70-100); Potassium 4.4 mmol/L (3.5-5.1); Sodium 138 mmol/L (136-145); Total Protein 7.2 g/dL (6.4-8.2)
[2019-01-06 11:13] LABS: Abs Immature Grans 0.01 k/cumm (0.0-0.09); Absolute Basophil Count 0.04 k/cumm (0.0-0.2); Absolute Eosinophil Count 0.31 k/cumm (0.0-0.7); Absolute Lymphocyte Count 0.79 k/cumm (1.2-3.4); Basophils % 0.6; Eosinophils % 4.9; HCT 41.4 % (36.0-46.0); HGB 13.6 g/dL (12.0-15.5); Immature Grans % 0.2; Lymphocytes % 12.4; Mean Corp. HGB Concentration 32.9 g/dL (32.0-36.0); Mean Corpuscular Hemoglobin 27.1 pg (27.0-33.0); Mean Corpuscular Volume 82.5 fL (80-95); Mean Platelet Volume 10.4 fL (8.0-11.0); Neutrophils % 70.9; Platelet Count 309 x1000/uL (130-400); RBC 5.02 m/cumm (4.00-5.20); RBC Distribution Width 14.6 % (11.7-14.6); White Blood Cell Count 6.35 k/cumm (4.4-10.8)
[2019-01-09 11:13] LABS: CEA 3.8 ng/ml
== END ==
PROVIDERS: PCP Nurse Practitioner Family; Visit Provider Internal Medicine Hematology & Oncology
DX: C20 Malignant neoplasm of rectum (principal)
CPT/HCPCS: 36415; 80053; 82378; 85025

== ENCOUNTER → 2019-02-23 18:13 | Outpatient (REF) | payer OTHER, SELFPAY | LOC: NCHCN 18:13 | PROVIDERS: PCP Nurse Practitioner Family; Visit Provider Family Medicine | DX: N39.0 Urinary tract infection, site not specified; R35.0 Frequency of micturition; B96.20 Unspecified Escherichia coli [E. coli] as the cause of diseases classified elsewhere; R33.9 Retention of urine, unspecified | CPT/HCPCS: 87077; 87086; 87186 ==

== ENCOUNTER → 2019-04-05 00:50 | Outpatient (CLI) | payer OTHER, SELFPAY ==
[2019-04-05 10:29] LABS: HCT 37.2 % (36.0-46.0); HGB 11.8 g/dL (12.0-15.5); Mean Corp. HGB Concentration 31.7 g/dL (32.0-36.0); Mean Corpuscular Hemoglobin 27.1 pg (27.0-33.0); Mean Corpuscular Volume 85.3 fL (80-95); Mean Platelet Volume 9.1 fL (8.0-11.0); Platelet Count 357 x1000/uL (130-400); RBC 4.36 m/cumm (4.00-5.20); RBC Distribution Width 16.3 % (11.7-14.6); White Blood Cell Count 6.13 k/cumm (4.4-10.8)
[2019-04-05 10:51] LABS: ALT 29 U/L (12-78); AST 13 U/L (15-37); Albumin 3.3 g/dL (3.4-5.0); Alkaline Phosphatase 131 U/L (46-116); Anion Gap 14.8 mmol/L (3-11); BUN 22 mg/dL (7-18); Bilirubin, Total 0.2 mg/dL (0.2-1.0); CO2 21.2 mmol/L (21.0-32.0); CREATININE 0.92 mg/dL (0.55-1.02); Calcium 8.9 mg/dL (8.5-10.1); Chloride 104 mmol/L (98-107); Glucose 141 mg/dL (70-100); Potassium 3.8 mmol/L (3.5-5.1); Sodium 140 mmol/L (136-145); Total Protein 7.1 g/dL (6.4-8.2)
[2019-04-05] MEDS: Omnipaque 350 MG/ML 100 ML BTL IJ (11:18)
[2019-04-05] MEDS: Omnipaque 350 MG/ML 50 ML BTL IJ (11:19)
--- NOTE | 2019-04-05 11:20 | DI.CT_ITS ---
SYMPTOMS/DIAGNOSIS: RECTAL CA, C20 CT OF THE CHEST, ABDOMEN AND PELVIS: Comparison is made with August,. CHEST: No pulmonary nodules, infiltrates or effusions are seen. An azygos lobe, normal variant, is again noted. The heart size is normal. There is no evidence of adenopathy. The aorta is normal in diameter. No lytic or blastic bony lesions are seen. IMPRESSION: No evidence of metastatic disease in the chest. ABDOMEN AND PELVIS: The liver shows fatty infiltration. The patient is status post cholecystectomy. There is no biliary dilatation. No liver metastases are identified. The spleen is normal in size. The adrenals, pancreas and aorta are unremarkable. There are small bilateral renal cysts. The patient is status post rectal resection and left lower quadrant ostomy. The size of the hernia appears to have decreased when compared with the previous exam. There is no thickening of the wall of the ascending colon. No mass is seen. The cecum is positioned in the midline. No adenopathy is seen in the abdomen or pelvis. The bladder is unremarkable. IMPRESSION: Thickening of the wall of the ascending colon versus contraction. The bladder wall also appears thickened. There is no evidence of metastatic disease.
[2019-04-06 09:15] LABS: CEA 2.1 ng/ml
== END ==
PROVIDERS: PCP Nurse Practitioner Family; Visit Provider Nurse Practitioner Adult Health
DX: C20 Malignant neoplasm of rectum (principal); Z12.89 Encounter for screening for malignant neoplasm of other sites; K63.89 Other specified diseases of intestine; N32.89 Other specified disorders of bladder
CPT/HCPCS: 36415; 74177; 80053; 85027; 71260; 82378; 85025; J3490; Q9967

== ENCOUNTER → 2019-04-14 09:50 | Outpatient (CLI) | payer OTHER, SELFPAY ==
[2019-04-14 10:33] LABS: Abs Immature Grans 0.01 k/cumm (0.0-0.09); Absolute Basophil Count 0.04 k/cumm (0.0-0.2); Absolute Eosinophil Count 0.47 k/cumm (0.0-0.7); Absolute Monocyte Count 0.56 k/cumm (0.11-0.7); Absolute Neutrophil Count 4.86 k/cumm (1.2-6.7); Basophils % 0.6; Eosinophils % 6.9; HCT 38.6 % (36.0-46.0); Immature Grans % 0.1; Lymphocytes % 13.2; Mean Corp. HGB Concentration 31.1 g/dL (32.0-36.0); Mean Corpuscular Volume 86.7 fL (80-95); Mean Platelet Volume 9.8 fL (8.0-11.0); Monocytes % 8.2; Platelet Count 350 x1000/uL (130-400); RBC 4.45 m/cumm (4.00-5.20); RBC Distribution Width 16.5 % (11.7-14.6); White Blood Cell Count 6.84 k/cumm (4.4-10.8)
[2019-04-14 10:43] LABS: ALT 24 U/L (12-78); AST 7 U/L (15-37); Albumin 3.6 g/dL (3.4-5.0); Alkaline Phosphatase 125 U/L (46-116); BUN 23 mg/dL (7-18); Bilirubin, Total 0.2 mg/dL (0.2-1.0); CREATININE 0.92 mg/dL (0.55-1.02); Calcium 8.8 mg/dL (8.5-10.1); Chloride 108 mmol/L (98-107); Glucose 155 mg/dL (70-100); Potassium 4.2 mmol/L (3.5-5.1); Sodium 141 mmol/L (136-145); Total Protein 7.4 g/dL (6.4-8.2)
[2019-04-17 09:44] LABS: CEA 2.9 ng/ml
== END ==
PROVIDERS: Nurse Practitioner Adult Health; PCP Nurse Practitioner Family; Visit Provider Internal Medicine Hematology & Oncology
DX: C20 Malignant neoplasm of rectum (principal)
CPT/HCPCS: 36415; 80053; 82378; 85025

== ENCOUNTER → 2019-06-16 19:29 | Outpatient (REF) | payer SELFPAY ==
[2019-06-16 18:58] LABS: Abs Immature Grans 0.01 k/cumm (0.0-0.09); Absolute Basophil Count 0.03 k/cumm (0.0-0.2); Absolute Eosinophil Count 0.42 k/cumm (0.0-0.7); Absolute Monocyte Count 0.75 k/cumm (0.11-0.7); Absolute Neutrophil Count 4.61 k/cumm (1.2-6.7); Basophils % 0.4; Eosinophils % 6.2; HCT 40.8 % (36.0-46.0); HGB 13.1 g/dL (12.0-15.5); Immature Grans % 0.1; Lymphocytes % 14.7; Mean Corp. HGB Concentration 32.1 g/dL (32.0-36.0); Mean Platelet Volume 10.5 fL (8.0-11.0); Neutrophils % 67.6; Platelet Count 340 x1000/uL (130-400); RBC 4.86 m/cumm (4.00-5.20); RBC Distribution Width 14.7 % (11.7-14.6); White Blood Cell Count 6.82 k/cumm (4.4-10.8)
[2019-06-16 19:19] LABS: ALT 26 U/L (14-59); AST 14 U/L (15-37); Albumin 3.9 g/dL (3.4-5.0); Alkaline Phosphatase 128 U/L (46-116); Anion Gap 11.5 mmol/L (3-11); BUN 19 mg/dL (7-18); Bilirubin, Total 0.4 mg/dL (0.2-1.0); CO2 23.5 mmol/L (21.0-32.0); CREATININE 0.77 mg/dL (0.55-1.02); Calcium 9.3 mg/dL (8.5-10.1); Chloride 107 mmol/L (98-107); Glucose 131 mg/dL (70-100); Potassium 4.3 mmol/L (3.5-5.1); Sodium 142 mmol/L (136-145); Total Protein 7.3 g/dL (6.4-8.2)
== END ==
LOC: NCHCN 19:29
PROVIDERS: PCP Nurse Practitioner Family; Visit Provider Physician Assistant Medical
DX: R19.7 Diarrhea, unspecified (principal)
CPT/HCPCS: 80053; 85025

== ENCOUNTER → 2019-08-25 09:59 | Outpatient (CLI) | payer SELFPAY ==
[2019-08-25 10:17] LABS: Abs Immature Grans 0.01 k/cumm (0.0-0.09); Absolute Basophil Count 0.03 k/cumm (0.0-0.2); Absolute Eosinophil Count 0.28 k/cumm (0.0-0.7); Absolute Lymphocyte Count 0.92 k/cumm (1.2-3.4); Absolute Monocyte Count 0.52 k/cumm (0.11-0.7); Basophils % 0.5; Eosinophils % 4.5; Immature Grans % 0.2; Lymphocytes % 14.7; Mean Corp. HGB Concentration 33.3 g/dL (32.0-36.0); Mean Corpuscular Hemoglobin 27.3 pg (27.0-33.0); Mean Platelet Volume 9.6 fL (8.0-11.0); Monocytes % 8.3; Neutrophils % 71.8; Platelet Count 296 x1000/uL (130-400); RBC 5.12 m/cumm (4.00-5.20); RBC Distribution Width 15.1 % (11.7-14.6); White Blood Cell Count 6.26 k/cumm (4.4-10.8)
[2019-08-25 10:32] LABS: ALT 28 U/L (14-59); AST 17 U/L (15-37); Albumin 3.8 g/dL (3.4-5.0); Alkaline Phosphatase 141 U/L (46-116); BUN 15 mg/dL (7-18); Bilirubin, Total 0.3 mg/dL (0.2-1.0); CREATININE 0.85 mg/dL (0.55-1.02); Calcium 8.9 mg/dL (8.5-10.1); Chloride 105 mmol/L (98-107); Glucose 221 mg/dL (74-106); Potassium 3.8 mmol/L (3.5-5.1); Sodium 141 mmol/L (136-145); Total Protein 7.6 g/dL (6.4-8.2)
[2019-08-28 11:22] LABS: CEA 4.5 ng/mL (See Note)
== END ==
PROVIDERS: PCP Nurse Practitioner Family; Visit Provider Internal Medicine Hematology & Oncology
DX: C20 Malignant neoplasm of rectum (principal)
CPT/HCPCS: 36415; 80053; 82378; 85025

== ENCOUNTER 2019-12-27 00:29 | Outpatient (CLI) | payer MEDICAID, SELFPAY ==
[2019-12-27] MEDS: Omnipaque 350 MG/ML 50 ML BTL IJ (08:40)
[2019-12-27 08:53] LABS: Abs Immature Grans 0.02 k/cumm (0.0-0.09); Absolute Basophil Count 0.02 k/cumm (0.0-0.2); Absolute Lymphocyte Count 0.75 k/cumm (1.2-3.4); Absolute Monocyte Count 0.64 k/cumm (0.11-0.7); Absolute Neutrophil Count 3.59 k/cumm (1.2-6.7); Basophils % 0.4; Eosinophils % 3.8; HCT 41.4 % (36.0-46.0); Immature Grans % 0.4 %; Lymphocytes % 14.4; Mean Corp. HGB Concentration 33.8 g/dL (32.0-36.0); Mean Corpuscular Volume 82.8 fL (80-95); Mean Platelet Volume 9.3 fL (8.0-11.0); Monocytes % 12.3; Neutrophils % 68.7; Platelet Count 272 x1000/uL (130-400); RBC Distribution Width 13.2 % (11.7-14.6); White Blood Cell Count 5.22 k/cumm (4.4-10.8)
[2019-12-27 09:06] LABS: ALT 31 U/L (14-59); AST 12 U/L (15-37); Albumin 3.5 g/dL (3.4-5.0); Alkaline Phosphatase 156 U/L (46-116); Anion Gap 7.9 mmol/L (3-11); BUN 18 mg/dL (7-18); Bilirubin, Total 0.3 mg/dL (0.2-1.0); CO2 26.1 mmol/L (21.0-32.0); CREATININE 0.86 mg/dL (0.55-1.02); Calcium 8.9 mg/dL (8.5-10.1); Chloride 101 mmol/L (98-107); Glucose 332 mg/dL (74-106); Potassium 4.6 mmol/L (3.5-5.1); Sodium 135 mmol/L (136-145); Total Protein 7.4 g/dL (6.4-8.2)
[2019-12-27] MEDS: Normal Saline - Diluent 50 ML VIAL IV (09:41)
[2019-12-27] MEDS: Omnipaque 350 MG/ML 100 ML BTL IJ (09:42)
[2019-12-27] MEDS: Normal Saline Flush 10 ML SYR IVP (09:44)
--- NOTE | 2019-12-27 10:46 | DI.CT_ITS ---
EXAM: CT CHEST/ABD/PEL W CLINICAL HISTORY: H/O RECTAL CA, S/P CHEMO AND RADIATION AND APR, RESTAGING EXAM TECHNIQUE: CT examination of the chest, abdomen, and pelvis was performed with bolus infusion of 100 cc of Omnipaque 350 and ingestion of dilute barium. COMPARISON: RENAL COLIC WO CONTRAST from 04/22/2018 CT CHEST/ABD/PEL W from 04/05/2019 FINDINGS: The lungs are clear. No mediastinal or hilar adenopathy. No axillary or supraclavicular adenopathy. No evidence of pulmonary embolic disease. No significant thoracic aortic abnormality. No pleural effusion or pleural-based mass. Patient reportedly has a history of rectal carcinoma with chemotherapy, radiation, and APR. There is no evidence of hepatic, splenic, adrenal, or renal metastasis. No urinary tract obstruction or calc ification. Incidental right renal cyst noted. Abdominal aorta is of normal diameter. No major vasc ular abnormality seen. There is a soft tissue attenuation focus in the right lower quadrant which appears unchanged from yaya or examination of 04/05/2019. This lies posterior to the cecum and measures about 6 x 2 cm in diamet er. The mid to distal portion of the ileum appears to be herniated inferiorly through the anal dana on, please correlate with surgical history. There is a descending colostomy with large associated fa t containing hernia, no evidence of obstruction. There is no pelvic adenopathy. No retroperitoneal adenopathy seen. No gross bony lesion identified on scanning of the chest, abdomen, or pelvis. IMPRESSION: No evidence of metastatic disease of the chest or upper abdomen. Rounded soft tissue radiodensity, r etrocecal, please correlate with surgical history, possibility of metastatic lesion at this site not excluded.
[2019-12-28 10:17] LABS: CEA 7.5 ng/mL (See Note)
== END 2019-12-27 00:49 ==
PROVIDERS: PCP Nurse Practitioner Family; Visit Provider Internal Medicine Hematology & Oncology
DX: C20 Malignant neoplasm of rectum (principal); Z12.89 Encounter for screening for malignant neoplasm of other sites; Z92.21 Personal history of antineoplastic chemotherapy; Z92.3 Personal history of irradiation; N28.1 Cyst of kidney, acquired
CPT/HCPCS: 74177; 80053; 71260; 82378; 85025; J3490; Q9967

== ENCOUNTER 2020-01-29 12:20 | Outpatient (REF) | payer MEDICAID, SELFPAY ==
[2020-01-29 19:02] LABS: Hemoglobin A1C 11.1 % (3.8-5.6)
== END 2020-01-29 12:40 ==
LOC: NCHCN 12:20
PROVIDERS: PCP Nurse Practitioner Family; Visit Provider Nurse Practitioner Family
DX: E28.2 Polycystic ovarian syndrome (principal)
CPT/HCPCS: 83036

== ENCOUNTER 2020-02-09 04:11 | Outpatient (CLI) | payer MEDICAID, SELFPAY ==
[2020-02-09 14:25] LABS: Abs Immature Grans 0.02 k/cumm (0.0-0.09); Absolute Basophil Count 0.03 k/cumm (0.0-0.2); Absolute Eosinophil Count 0.31 k/cumm (0.0-0.7); Absolute Lymphocyte Count 1.43 k/cumm (1.2-3.4); Absolute Monocyte Count 0.87 k/cumm (0.11-0.7); Basophils % 0.4; Eosinophils % 4.4; HCT 43.8 % (36.0-46.0); HGB 14.9 g/dL (12.0-15.5); Immature Grans % 0.3 %; Lymphocytes % 20.3; Mean Corpuscular Hemoglobin 27.5 pg (27.0-33.0); Mean Platelet Volume 9.5 fL (8.0-11.0); Monocytes % 12.3; Neutrophils % 62.3; Platelet Count 388 x1000/uL (130-400); RBC 5.41 m/cumm (4.00-5.20); RBC Distribution Width 13.6 % (11.7-14.6); White Blood Cell Count 7.06 k/cumm (4.4-10.8)
[2020-02-09 14:38] LABS: ALT 47 U/L (14-59); AST 19 U/L (15-37); Alkaline Phosphatase 143 U/L (46-116); BUN 28 mg/dL (7-18); Bilirubin, Total 0.3 mg/dL (0.2-1.0); Calcium 9.5 mg/dL (8.5-10.1); Chloride 102 mmol/L (98-107); Glucose 271 mg/dL (74-106); Potassium 4.4 mmol/L (3.5-5.1); Sodium 137 mmol/L (136-145)
[2020-02-12 10:17] LABS: CEA 3.6 ng/mL (See Note)
== END 2020-02-09 04:31 ==
PROVIDERS: PCP Nurse Practitioner Family; Visit Provider Internal Medicine Hematology & Oncology
DX: C20 Malignant neoplasm of rectum (principal)
CPT/HCPCS: 36415; 80053; 82378; 85025

== ENCOUNTER 2020-03-04 16:05 | Outpatient (REF) | payer MEDICAID, SELFPAY ==
[2020-03-04 19:45] LABS: Anion Gap 11.8 mmol/L (3-11); BUN 22 mg/dL (7-18); CO2 21.2 mmol/L (21.0-32.0); CREATININE 0.88 mg/dL (0.55-1.02); Chloride 105 mmol/L (98-107); Glucose 152 mg/dL (74-106); Potassium 4.5 mmol/L (3.5-5.1); Sodium 138 mmol/L (136-145)
== END 2020-03-04 16:25 ==
LOC: NCHCN 16:05
PROVIDERS: PCP Nurse Practitioner Family; Visit Provider Nurse Practitioner Family
DX: E11.9 Type 2 diabetes mellitus without complications (principal); M25.50 Pain in unspecified joint; K46.9 Unspecified abdominal hernia without obstruction or gangrene; G47.37 Central sleep apnea in conditions classified elsewhere
CPT/HCPCS: 80048

== ENCOUNTER 2020-06-11 00:07 | Outpatient (CLI) | payer MEDICAID, SELFPAY ==
--- NOTE | 2020-06-11 08:45 | DI.CT_ITS ---
EXAM: CT CHEST/ABD/PEL W CLINICAL HISTORY: RECTAL CA,S/P CHEMO,RADIATION,RESECTION,RESTAGING EXAM. TECHNIQUE: Imaging Protocol: Axial computed tomography images with coronal and sagittal reformatted images were created and reviewed CONTRAST MATERIAL: Intravenous: Omnipaque 350 Contrast volume:100 cc Oral: yes COMPARISON: CT CT CHEST/ABD/PEL W from 04/05/[address] CHEST/ABD/PEL W from 04/05/[address] CHEST/ABD/PEL W from 12/27/2019 FINDINGS: CHEST: Thyroid: Unremarkable Tracheobronchial tree: Patent where visualized. Mediastinum and Tita: No dominant adenopathy or fluid collection. Pulmonary parenchyma: No consolidation or dominant measurable mass. No architectural distortion. Pleura: No effusion or pneumothorax. Lymph nodes: Within normal limits. Aorta: Thoracic portion non-dilated. Heart: Normal size. Mild coronary artery calcifications. Bones: Mild degenerative disc changes. ABDOMEN: Liver: Mild hepatic steatosis. No measurable mass. Gallbladder and biliary tract: Status post cholecystectomy. No biliary dilation. Pancreas: Normal density, no abnormal calcifications or inflammatory process. Spleen: Normal. Kidneys: Normal size, contour and axis. No radiodense stones or obstructive uropathy. No masses seen. Small renal cysts. Adrenal glands: No masses seen. Aorta: Abdominal portion non-dilated. Lymph nodes: Within normal limits. PELVIS: Bladder: Symmetric distention, no gross wall thickening. Bowel: Stable appearance of large left lower quadrant abdominal wall hernia and ostomy. Numerous bow el loops are again seen herniating posteriorly and inferiorly with respect to the anus. No obstructi on or bowel wall thickening. Peritoneal cavity: Stable low-density circumscribed collection posterior to the cecum. Bones: Degenerative changes. No suspicious lesions. Reproductive organs: Status post hysterectomy. IMPRESSION: Stable appearance of right lower quadrant collection. Stable appearance left abdominal wall hernia a t the ostomy site as well as perianal hernia. No evidence of new metastatic disease. RADIATION DOSE DELIVERED: Total DLP DATA REPOSITORY: All CT scans at this facility are submitted to the National Radiology Data Registry (NRDR) Dose Index Registry (DIR) with the [employer] (ACR). RADIATION OPTIMIZATION: All CT scans at this facility use at least one of these dose optimization te chniques: automated exposure control; mA and/or kV adjustment per patient size (includes targeted exa ms where dose is matched to clinical indication); or iterative reconstruction.
[2020-06-11] MEDS: Omnipaque 350 MG/ML 50 ML BTL PO (09:40)
[2020-06-11 09:44] LABS: Abs Immature Grans 0.02 10^3/uL (0.0-0.06); Absolute Basophil Count 0.04 10^3/uL (0.0-0.2); Absolute Eosinophil Count 0.25 10^3/uL (0.0-0.7); Absolute Lymphocyte Count 1.11 10^3/uL (1.2-3.4); Absolute Monocyte Count 0.68 10^3/uL (0.1-0.8); Absolute Neutrophil Count 3.84 10^3/uL (1.2-6.7); Basophils % 0.7; Eosinophils % 4.2; HCT 41.3 % (36.0-46.0); Immature Grans % 0.3; Lymphocytes % 18.7; MCH 27.8 pg (27.0-33.0); MCHC 33.9 % (32.0-36.0); MCV 82.1 fL (80-95); MPV 9.8 fL (8.0-11.0); Monocytes % 11.4; Neutrophils % 64.7; Nucleated RBC 0 %; Platelet Count 246 10^3/uL (130-400); RBC 5.03 10^6/uL (3.93-5.22); RDW 12.4 % (11.7-14.6); RDW-SD 37.2 fL; WBC 5.94 10^3/uL (4.4-10.8)
[2020-06-11 09:56] LABS: ALT 30 U/L (14-59); AST 16 U/L (15-37); Albumin 3.5 g/dL (3.4-5.0); Alkaline Phosphatase 135 U/L (46-116); BUN 24 mg/dL (7-18); Bilirubin, Total 0.4 mg/dL (0.2-1.0); CREATININE 0.96 mg/dL (0.55-1.02); Calcium 9.6 mg/dL (8.5-10.1); Chloride 101 mmol/L (98-107); Glucose 169 mg/dL (74-106); Potassium 3.7 mmol/L (3.5-5.1); Sodium 136 mmol/L (136-145)
[2020-06-11] MEDS: Omnipaque 350 MG/ML 100 ML BTL IJ (10:04)
[2020-06-11 18:23] LABS: CEA 2.7 ng/mL (See Note)
== END 2020-06-11 00:27 ==
PROVIDERS: PCP Nurse Practitioner Family; Visit Provider Internal Medicine Hematology & Oncology
DX: C20 Malignant neoplasm of rectum (principal); K43.9 Ventral hernia without obstruction or gangrene; K45.8 Other specified abdominal hernia without obstruction or gangrene; K76.0 Fatty (change of) liver, not elsewhere classified
CPT/HCPCS: 74177; 80053; 71260; 82378; 85025; J3490; Q9967

== ENCOUNTER 2020-08-14 01:28 | Outpatient (CLI) | payer MEDICAID, SELFPAY ==
[2020-08-14 08:26] LABS: HGB 13.8 g/dL (11.2-15.7); MCH 27.6 pg (27.0-33.0); MCHC 33.7 % (32.0-36.0); MPV 9.6 fL (8.0-11.0); Platelet Count 273 10^3/uL (130-400); RDW 12.8 % (11.7-14.6); RDW-SD 37.7 fL; WBC 6.42 10^3/uL (4.4-10.8)
[2020-08-14 08:38] LABS: Hemoglobin A1C 7.3 % (<5.7)
[2020-08-14 09:05] LABS: COMMENT (LAB VIEW ONLY) 138.33 mg/dL
[2020-08-14 09:06] LABS: ALT 32 U/L (14-59); AST 15 U/L (15-37); Albumin 3.6 g/dL (3.4-5.0); Alkaline Phosphatase 145 U/L (46-116); Bilirubin, Direct 0.08 mg/dL (0.00-0.20); Bilirubin, Total 0.4 mg/dL (0.2-1.0); Total Protein 6.8 g/dL (6.4-8.2); Uric Acid 8.5 mg/dL (2.6-6.0)
[2020-08-14 09:32] LABS: ALT 33 U/L (14-59); AST 15 U/L (15-37); Albumin 3.7 g/dL (3.4-5.0); Alkaline Phosphatase 142 U/L (46-116); Anion Gap 15.4 mmol/L (3-11); BUN 23 mg/dL (7-18); Bilirubin, Total 0.4 mg/dL (0.2-1.0); CO2 20.6 mmol/L (21.0-32.0); Calcium 9.2 mg/dL (8.5-10.1); Calculated LDL 78 mg/dL (<100); Chloride 106 mmol/L (98-107); Cholesterol 171 mg/dL (<200); Glucose 169 mg/dL (74-106); HDL Cholesterol 22 mg/dL (40-60); Potassium 4.1 mmol/L (3.5-5.1); Sodium 142 mmol/L (136-145); Total Protein 6.7 g/dL (6.4-8.2); Triglyceride 356 mg/dL (<150); Vitamin B12 367 pg/mL (193-986)
[2020-08-14 09:38] LABS: TSH < 0.01 uIU/mL (0.36-3.74)
[2020-08-15 04:37] LABS: Vitamin D 25 Total 7.2 ng/ml (30-100)
[2020-08-16 15:37] LABS: FREE T4 2.38 ng/dL (0.76-1.46)
[2020-08-16 21:57] LABS: T3, Total 293 ng/dL (97-169)
[2020-08-18 17:45] LABS: Thyroglobulin Antibody 28 U/mL (<=60); Thyroperoxidase Antibody 29 U/mL (<=60)
[2020-08-21 16:23] LABS: Thyroid Stimulating Immunoglob 1.7 TSI index (<=1.3)
== END 2020-08-14 01:48 ==
PROVIDERS: Internal Medicine Endocrinology, Diabetes & Metabolism; PCP Nurse Practitioner Family; Visit Provider Nurse Practitioner Family
DX: E11.40 Type 2 diabetes mellitus with diabetic neuropathy, unspecified (principal); E55.9 Vitamin D deficiency, unspecified; R53.82 Chronic fatigue, unspecified; E78.5 Hyperlipidemia, unspecified; E11.9 Type 2 diabetes mellitus without complications; E79.0 Hyperuricemia without signs of inflammatory arthritis and tophaceous disease; R89.9 Unspecified abnormal finding in specimens from other organs, systems and tissues
CPT/HCPCS: 36415; 80053; 80061; 80076; 82306; 83721; 85027; 86376; 82043; 82570; 82607; 83036; 83718; 84439; 84443; 84445; 84480; 84481; 84550; 84681

== ENCOUNTER 2020-08-27 16:15 | Outpatient (REF) | payer MEDICAID, SELFPAY ==
[2020-08-29 03:54] LABS: COVID-19 RT-PCR UVMMC Result Negative (Negative)
== END 2020-08-27 16:35 ==
LOC: NCHCN 16:15
PROVIDERS: PCP Nurse Practitioner Family; Visit Provider Nurse Practitioner Family
DX: Z20.828 Contact with and (suspected) exposure to other viral communicable diseases (principal)
CPT/HCPCS: U0003

== ENCOUNTER 2020-09-16 10:10 | Outpatient (REF) | payer MEDICAID, SELFPAY ==
--- NOTE | 2020-09-16 09:40 | PAPFT_PTH ---
PATIENT: Dede Pacheco [id number] AGE/SX: 65/F ROOM: RE09/16/[address]: Татьяна Rothman : 1955 BED: DIS: 09/16/2020 SPEC #: [id number] RECD: 09/16/20 18:22 STATUS: TIFFANY REChari #: [id number] DARLENE: 09/16/20 09:[address]: Татьяна Rothman DEPT: [facility] Cytology RECD BY: Tawanna Torrez Tissues: 1 - CX/ENDOCX FOR PAP SMEARS Procedures: PAP THIN PREP/UVM Screening HPV DNA PROBE Comments: [id number]
== END 2020-09-16 10:30 ==
LOC: NCHCN 10:10
PROVIDERS: PCP Nurse Practitioner Family; Visit Provider Nurse Practitioner Family
DX: M54.5 Low back pain (principal); E79.0 Hyperuricemia without signs of inflammatory arthritis and tophaceous disease; Z12.4 Encounter for screening for malignant neoplasm of cervix; Z01.419 Encounter for gynecological examination (general) (routine) without abnormal findings; Z11.51 Encounter for screening for human papillomavirus (HPV)
CPT/HCPCS: 88142; 87480; 87510; 87624; 87660

== ENCOUNTER 2020-10-07 01:16 | Outpatient (CLI) | payer MEDICAID, SELFPAY ==
--- NOTE | 2020-10-07 | DI.MRI_ITS ---
EXAM: MR LUMBAR SPINE WO/W CLINICAL HISTORY: LOW BACK PAIN, M54.5, H/O RECTAL CA, ? METS. TECHNIQUE: Multiplanar multisequence MRI of the Lumbar Spine was performed. CONTRAST MATERIAL: IV Contrast: 18 mL of Dotarem contrast administered. COMPARISON: CT CT CHEST/ABD/PEL W from 06/11/[address] CHEST/ABD/PEL W from 06/11/2020 FINDINGS: Bones: The last intervertebral disc space is designated the L5/S1 level for the numbering purpose of this examination. The vertebral body heights are well maintained. Alignment is satisfactory. Mild de generative endplate signal changes are seen at L2-3 and L3-L4. There is mild fatty replacement seen i n the L5 vertebral body in the visualized portions of the sacrum. This can be seen following radiati on therapy. Cord: The conus tip ends at the L1 level. It is of normal size and signal intensity. T12-L1: No disc herniations or bulges are present. No central spinal canal or neural foraminal stenos is. L1-2: No disc herniations or bulges are present. No central spinal canal or neural foraminal stenosis . L2-3: There is a mild diffuse disc bulge. No central spinal canal or neural foraminal stenosis. L3-4: No disc herniations or bulges are present. No central spinal canal or neural foraminal stenosis . L4-5: There is a diffuse disc bulge. There are hypertrophic changes of the facets and ligamentum fla vum. These all contribute to cause marked central spinal canal stenosis. No significant neural fora vasu stenosis is present. L5-S1: No disc herniations or bulges are present. No central spinal canal or neural foraminal stenosi s. Soft tissues: The visualized SI joints and sacrum are well maintained. The paraspinal soft tissues ar e unremarkable. Note is made of bilateral renal cysts. They appear simple. The largest seen is on t he right and measures 1.6 cm. Enhancement: There is no evidence of suspicious enhancement. IMPRESSION: 1. No findings to suggest osseous metastatic disease. 2. Degenerative changes in the lumbar spine. The findings are most marked at L4-5 where there is mar ked central spinal canal stenosis. 3. Bilateral renal cysts. These appear stable compared to the CT scan of the abdomen and pelvis from 06/11/2020. DATA REPOSITORY:
[2020-10-07] MEDS: Normal Saline Flush 10 ML SYR IVP (08:27)
[2020-10-07] MEDS: Gadoterate meglumine 20 ML VIAL 18 ML IVP (08:28)
== END 2020-10-07 01:17 | disposition home or self-care (01) ==
PROVIDERS: PCP Nurse Practitioner Family; Visit Provider Nurse Practitioner Family
DX: M47.816 Spondylosis without myelopathy or radiculopathy, lumbar region (principal); N28.1 Cyst of kidney, acquired
CPT/HCPCS: 72158

== ENCOUNTER 2020-10-07 01:17 | Outpatient (CLI) | payer MEDICAID, SELFPAY ==
--- NOTE | 2020-10-07 | DI.MAMMO_ITS ---
EXAM: MG MAMMO SCREENING CLINICAL HISTORY: SCREENING, Z12.39 TECHNIQUE: Bilateral full field digital CC and MLO mammographic images were obtained with 3D tomosyn thesis and utilizing computer aided detection (CAD). COMPARISON: Available for comparison. FINDINGS: Masses/Architectural Distortion: Scattered fibro nodular densities are seen in both breasts. No susp icious masses or areas of architectural distortion are present. Microcalcifications: No suspicious pleomorphic-type are seen. Skin Thickening/Nipple Retraction: None. IMPRESSION: 1. No significant interval change with no specific features of malignancy noted. 2. Unless there is more urgent need, screening mammography is recommended, as per [employer] guidelines. BI-RADS Category 1 - Negative Breast Density - Category B - Scattered areas of fibroglandular density Breast density category C or D implies that the patient has dense breast tissue. Dense breast tissue is very common and is not abnormal but dense breast tissue can make it harder to find cancer on a ma mmogram. Also, dense breast tissue may increase their breast cancer risk. This information about the result of the mammogram report was provided to the patient to raise their awareness. Use this report when you speak with the patient about their risks for breast cancer, which includes their family hist ory. At that time, you may recommend for more screening tests (Ultrasound or MRI) as they might be us eful based on their risk. A negative radiographic report should not delay biopsy if a dominant or clinically suspicious mass is present. Up to ten percent of cancers are not identified on mammography. A negative report may reinforce clinical impression. Adenosis and dense breasts may obscure an underlying neoplasm. False positive reports average 6 to 10%. Patient will receive a letter notifying them of these results.
== END 2020-10-07 01:18 | disposition home or self-care (01) ==
LOC: DI 01:17
PROVIDERS: PCP Nurse Practitioner Family; Visit Provider Nurse Practitioner Family
DX: Z12.31 Encounter for screening mammogram for malignant neoplasm of breast (principal); M47.816 Spondylosis without myelopathy or radiculopathy, lumbar region; M48.061 Spinal stenosis, lumbar region without neurogenic claudication; N28.1 Cyst of kidney, acquired
CPT/HCPCS: 72158; 77063; 77067

== ENCOUNTER 2020-10-29 01:34 | Outpatient (CLI) | payer MEDICAID, SELFPAY ==
--- NOTE | 2020-10-29 09:30 | DI.CT_ITS ---
EXAM: CT ABDOMEN PELVIS W INDICATION: ABD PAIN, R10.9. COMPARISON: CT CT CHEST/ABD/PEL W from 06/11/2020 TECHNIQUE: FINDINGS: CT examination of the abdomen and pelvis was performed with a bolus infusion of 100 cc of is Visipaqu e 320. Images obtained through the lung bases are unremarkable. The liver is unremarkable in appearance. The gallbladder has been surgically removed. The bile ducts are CT normal. Pancreas appears normal. Spleen is unremarkable in appearance. Adrenals appear normal. The kidneys are unremarkable with no evidence of hydronephrosis, nephrolithiasis, or renal mass. Inc idental presumed small right renal cyst noted... Urinary bladder unremarkable. Abdominal aorta is of normal diameter and no major vascular abnormality is seen. Large ventral hernia again noted, no gross interval change in size comparison with prior examination of May 2020. There are small bowel loops contained in the hernia sac without evidence of obstruc tion or strangulation. No abdominal or pelvic adenopathy. The ovaries appear fairly symmetrical in grossly unchanged in size in comparison with May 2020. Uterus is atrophic or absent. Patient has reportedly had prior bowel resection. No evidence of bowel obstruction. No evidence of appendicitis or diverticulitis. IMPRESSION: No evidence of acute intra-abdominal process. RADIATION DOSE DELIVERED: 1,260.17mGy.cm Total DLP 1,260.17mGy.cm Total DLP
[2020-10-29] MEDS: Normal Saline - Diluent 50 ML VIAL IV (10:16)
== END 2020-10-29 01:54 ==
PROVIDERS: PCP Nurse Practitioner Family; Visit Provider Nurse Practitioner Family
DX: R10.9 Unspecified abdominal pain (principal)
CPT/HCPCS: 74177; 82565

== ENCOUNTER 2020-11-04 19:05 | Outpatient (REF) | payer MEDICAID, SELFPAY ==
[2020-11-04 17:34] LABS: C Diff PCR Negative (Negative)
[2020-11-05 11:32] LABS: Campylobacter PCR Negative (Negative); Salmonella PCR Negative (Negative); Shiga Toxin PCR Negative (Negative); Shigella/Enteroinvasive Ecoli Negative (Negative)
== END 2020-11-04 19:06 | disposition home or self-care (01) ==
LOC: NCHCN 19:05
PROVIDERS: PCP Nurse Practitioner Family; Visit Provider Nurse Practitioner Family
DX: R10.9 Unspecified abdominal pain (principal); R19.7 Diarrhea, unspecified
CPT/HCPCS: 87329; 87493; 87505; 82272; 83630; 87177

== ENCOUNTER 2020-11-08 03:40 | Outpatient (CLI) | payer MEDICAID, SELFPAY ==
[2020-11-08 15:03] LABS: Abs Immature Grans 0.02 10^3/uL (0.0-0.06); Absolute Basophil Count 0.08 10^3/uL (0.0-0.2); Absolute Eosinophil Count 0.57 10^3/uL (0.0-0.7); Absolute Lymphocyte Count 1.79 10^3/uL (1.2-3.4); Absolute Monocyte Count 0.84 10^3/uL (0.1-0.8); Absolute Neutrophil Count 4.41 10^3/uL (1.2-6.7); Eosinophils % 7.4; HCT 42.5 % (36.0-46.0); HGB 14.5 g/dL (11.2-15.7); Immature Grans % 0.3; Lymphocytes % 23.2; MCH 28.4 pg (27.0-33.0); MCHC 34.1 % (32.0-36.0); MCV 83.3 fL (80-95); MPV 9.5 fL (8.0-11.0); Monocytes % 10.9; Neutrophils % 57.2; Nucleated RBC 0 %; Platelet Count 323 10^3/uL (130-400); RDW 13.6 % (11.7-14.6); RDW-SD 41.1 fL; WBC 7.71 10^3/uL (4.4-10.8)
[2020-11-08 15:06] LABS: Hemoglobin A1C 7.9 % (<5.7)
[2020-11-08 16:16] LABS: ALT 42 U/L (14-59); AST 16 U/L (15-37); Albumin 3.8 g/dL (3.4-5.0); Alkaline Phosphatase 174 U/L (46-116); BUN 22 mg/dL (7-18); Bilirubin, Total 0.3 mg/dL (0.2-1.0); Calcium 9.5 mg/dL (8.5-10.1); Chloride 102 mmol/L (98-107); Glucose 115 mg/dL (74-106); Potassium 4.6 mmol/L (3.5-5.1); Sodium 137 mmol/L (136-145); Total Protein 7.1 g/dL (6.4-8.2)
[2020-11-08 16:42] LABS: Vitamin B12 590 pg/mL (193-986)
[2020-11-08 17:11] LABS: FREE T4 0.97 ng/dL (0.76-1.46)
[2020-11-08 17:12] LABS: TSH < 0.01 uIU/mL (0.36-3.74)
[2020-11-08 21:48] LABS: T3, Total 143 ng/dL (97-169)
[2020-11-08 22:03] LABS: CEA 2.3 ng/mL (See Note)
[2020-11-11 05:15] LABS: Vitamin D 25 Total 14.5 ng/ml (30-100)
== END 2020-11-08 03:41 | disposition home or self-care (01) ==
LOC: LBO 03:40
PROVIDERS: Internal Medicine Hematology & Oncology; PCP Nurse Practitioner Family; Visit Provider Internal Medicine Endocrinology, Diabetes & Metabolism
DX: E05.00 Thyrotoxicosis with diffuse goiter without thyrotoxic crisis or storm; E55.9 Vitamin D deficiency, unspecified; E11.29 Type 2 diabetes mellitus with other diabetic kidney complication; R80.9 Proteinuria, unspecified; Z79.4 Long term (current) use of insulin; C20 Malignant neoplasm of rectum
CPT/HCPCS: 36415; 80053; 82306; 82378; 82607; 83036; 84439; 84443; 84480; 85025

== ENCOUNTER 2020-11-25 02:14 | Outpatient (CLI) | payer MEDICAID, SELFPAY ==
--- NOTE | 2020-11-25 08:37 | DI.RAD_ITS ---
EXAM: XR LUMBAR SPINE COMPLETE CLINICAL HISTORY: H/O LOW BACK PAIN WITH STENOSIS AT L4-5, TO ASSESS MOTION, M48.061. TECHNIQUE: 2D digital imaging was performed. COMPARISON: No exams were available for comparison FINDINGS: Appears to be a transitional vertebra here. No evidence of fracture or listhesis nor pars interartic ularis defects. There is moderate disc space narrowing and anterior osseous lipping at L2-3 level. Mild disc space narrowing at L4-5 and L5-S1 levels. Some facet degenerative changes are noted at the lower 2 levels. No osseous lesions. Sacroiliac joints appear unremarkable. IMPRESSION: Degenerative disc disease. DATA REPOSITORY: RADIATION DOSE DELIVERED:
== END 2020-11-25 02:34 ==
PROVIDERS: PCP Nurse Practitioner Family; Visit Provider Physician Assistant Medical
DX: M54.5 Low back pain (principal); M48.061 Spinal stenosis, lumbar region without neurogenic claudication; M51.37 Other intervertebral disc degeneration, lumbosacral region
CPT/HCPCS: 72110

== ENCOUNTER 2021-01-03 04:03 | Outpatient (CLI) | payer MEDICAID, SELFPAY ==
[2021-01-03 11:04] LABS: Abs Immature Grans 0.02 10^3/uL (0.0-0.06); Absolute Basophil Count 0.06 10^3/uL (0.0-0.2); Absolute Eosinophil Count 0.35 10^3/uL (0.0-0.7); Absolute Lymphocyte Count 1.49 10^3/uL (1.2-3.4); Absolute Neutrophil Count 4.07 10^3/uL (1.2-6.7); Basophils % 0.9; Eosinophils % 5.3; HCT 41.5 % (36.0-46.0); HGB 13.8 g/dL (11.2-15.7); Immature Grans % 0.3; Lymphocytes % 22.6; MCH 29.1 pg (27.0-33.0); MCHC 33.3 % (32.0-36.0); MCV 87.6 fL (80-95); MPV 9.7 fL (8.0-11.0); Monocytes % 9.1; Neutrophils % 61.8; Nucleated RBC 0 %; Platelet Count 286 10^3/uL (130-400); RBC 4.74 10^6/uL (3.93-5.22); RDW 13.5 % (11.7-14.6); RDW-SD 43.5 fL; WBC 6.59 10^3/uL (4.4-10.8)
[2021-01-03 11:16] LABS: Hemoglobin A1C 7.6 % (<5.7)
[2021-01-03 12:36] LABS: ALT 26 U/L (14-59); AST 12 U/L (15-37); Albumin 3.9 g/dL (3.4-5.0); Alkaline Phosphatase 167 U/L (46-116); Anion Gap 13.9 mmol/L (3-11); BUN 24 mg/dL (7-18); Bilirubin, Total 0.3 mg/dL (0.2-1.0); CO2 22.1 mmol/L (21.0-32.0); CREATININE 1.1 mg/dL (0.55-1.02); Calcium 8.8 mg/dL (8.5-10.1); Chloride 104 mmol/L (98-107); Estimated GFR 50.17 (mL/min/1.73m2); Glucose 163 mg/dL (74-106); Potassium 4.9 mmol/L (3.5-5.1); Sodium 140 mmol/L (136-145); TSH 0.26 uIU/mL (0.36-3.74); Vitamin B12 1068 pg/mL (193-986)
[2021-01-03 12:56] LABS: FREE T4 0.65 ng/dL (0.76-1.46)
[2021-01-03 16:55] LABS: T3, Total 114 ng/dL (97-169)
[2021-01-06 05:30] LABS: Vitamin D 25 Total 18.1 ng/mL (30-100)
== END 2021-01-03 04:04 | disposition home or self-care (01) ==
LOC: LBO 04:04
PROVIDERS: PCP Nurse Practitioner Family; Visit Provider Internal Medicine Endocrinology, Diabetes & Metabolism
DX: E05.00 Thyrotoxicosis with diffuse goiter without thyrotoxic crisis or storm (principal); E11.29 Type 2 diabetes mellitus with other diabetic kidney complication; R80.9 Proteinuria, unspecified; Z79.4 Long term (current) use of insulin; E55.9 Vitamin D deficiency, unspecified
CPT/HCPCS: 36415; 80053; 82306; 82607; 83036; 84439; 84443; 84480; 85025

== ENCOUNTER 2021-01-13 03:44 | Outpatient (CLI) | payer MEDICAID, SELFPAY ==
--- NOTE | 2021-01-13 13:00 | NS.NUTBLAN_ITS ---
Dede was referred for Medical Nutrition Therapy for weight management. She is 65 years old, BMI 35 with hx of rectal cancer (with colostomy), with PCOS, recent dx with DM2, Graves Dx. Meds include 20 u lantus, victoza qd, 500 mg metformin BID. Most recent A1C: 7%. Reports fasting sugars around 160 mg, before bed around 170-190 mg. Suspect frequent hypo and hyperglycemia cause of misleading A1C. Dede wants to lose weight prior to her hernia surgery in February 2021. Educated Dede on how to follow lower carb diet with emphasis on complex carbs, lean protein and healthy fats. Provided meal plans and encouraged her to log meals on claudy- goal is to follow limit carbs to 80-100 grams daily with increased intakes of non starchy vegetables and lean protein. Also, encouraged her to get a continuous glucose monitor to better monitor her blood sugars and improve glycemic control. May need to adjust insulin if reducing carb intake. Provided education on hypoglycemia/treatment. Plan: no follow up planned at this time Dede will reach out for support as needed. Would benefit from a Continuous Glucose Monitor - Marvin 2 CGM or Dexcom G6
== END 2021-01-13 03:45 | disposition home or self-care (01) ==
PROVIDERS: PCP Nurse Practitioner Family; Visit Provider Dietitian, Registered
DX: E11.9 Type 2 diabetes mellitus without complications (principal); Z79.4 Long term (current) use of insulin; E66.9 Obesity, unspecified; Z68.35 Body mass index [BMI] 35.0-35.9, adult; Z85.048 Personal history of other malignant neoplasm of rectum, rectosigmoid junction, and anus; Z93.3 Colostomy status; Z71.3 Dietary counseling and surveillance
CPT/HCPCS: 97802

== ENCOUNTER 2021-02-26 03:51 | Outpatient (CLI) | payer MEDICAID, SELFPAY ==
[2021-02-26 08:37] LABS: Abs Immature Grans 0.03 10^3/uL (0.0-0.06); Absolute Basophil Count 0.08 10^3/uL (0.0-0.2); Absolute Eosinophil Count 0.48 10^3/uL (0.0-0.7); Absolute Lymphocyte Count 1.97 10^3/uL (1.2-3.4); Absolute Neutrophil Count 5.04 10^3/uL (1.2-6.7); Eosinophils % 5.8; HGB 14.9 g/dL (11.2-15.7); Immature Grans % 0.4; Lymphocytes % 23.7; MCH 30.3 pg (27.0-33.0); MCHC 33.9 % (32.0-36.0); MCV 89.4 fL (80-95); MPV 9.3 fL (8.0-11.0); Monocytes % 8.4; Neutrophils % 60.7; Nucleated RBC 0 %; Platelet Count 315 10^3/uL (130-400); RBC 4.92 10^6/uL (3.93-5.22); RDW 12.1 % (11.7-14.6); RDW-SD 39.9 fL
[2021-02-26 08:59] LABS: Hemoglobin A1C 7.1 % (<5.7)
[2021-02-26 09:58] LABS: ALT 29 U/L (14-59); AST 13 U/L (15-37); Albumin 3.9 g/dL (3.4-5.0); Alkaline Phosphatase 133 U/L (46-116); Anion Gap 15.8 mmol/L (3-11); BUN 30 mg/dL (7-18); Bilirubin, Total 0.3 mg/dL (0.2-1.0); CO2 21.2 mmol/L (21.0-32.0); CREATININE 1.2 mg/dL (0.55-1.02); Calcium 9.2 mg/dL (8.5-10.1); Calculated LDL 132 mg/dL (<100); Chloride 102 mmol/L (98-107); Cholesterol 229 mg/dL (<200); Estimated GFR 45.37 (mL/min/1.73m2); Glucose 161 mg/dL (74-106); HDL Cholesterol 27 mg/dL (40-60); Potassium 4.3 mmol/L (3.5-5.1); Sodium 139 mmol/L (136-145); TSH 0.36 uIU/mL (0.36-3.74); Total Protein 7.2 g/dL (6.4-8.2); Triglyceride 354 mg/dL (<150); Vitamin B12 842 pg/mL (193-986)
[2021-02-26 10:27] LABS: FREE T4 0.83 ng/dL (0.76-1.46); Uric Acid 9.4 mg/dL (2.6-6.0)
[2021-02-26 16:47] LABS: T3, Total 127 ng/dL (97-169)
[2021-02-27 00:48] LABS: Vitamin D 25 Total 20.7 ng/mL (30-100)
[2021-03-06 15:20] LABS: Thyroid Stimulating Immunoglob <1.0 TSI index (<=1.3)
== END 2021-02-26 03:52 | disposition home or self-care (01) ==
LOC: LBO 03:51
PROVIDERS: PCP Nurse Practitioner Family; Visit Provider Internal Medicine Endocrinology, Diabetes & Metabolism
DX: E11.21 Type 2 diabetes mellitus with diabetic nephropathy (principal); Z79.4 Long term (current) use of insulin; E05.00 Thyrotoxicosis with diffuse goiter without thyrotoxic crisis or storm; E78.5 Hyperlipidemia, unspecified; E79.0 Hyperuricemia without signs of inflammatory arthritis and tophaceous disease; E55.9 Vitamin D deficiency, unspecified; E11.29 Type 2 diabetes mellitus with other diabetic kidney complication; R80.9 Proteinuria, unspecified
CPT/HCPCS: 36415; 80053; 80061; 82306; 82607; 83036; 84439; 84443; 84445; 84480; 84550; 85025

== ENCOUNTER 2021-04-23 14:35 | Inpatient (IN) | payer MEDICAID, SELFPAY ==
[2021-04-23] VITALS (53 sets, daily range): BP systolic 88–124; BP diastolic 47–79; PULSE 83–117; RESP 12–49; TEMP 36.7–37.8; O2SAT 91–98
--- NOTE | 2021-04-23 14:30 | RT.EKG_ITS ---
APPROVED REPORT Exam: Resting ECG Reason for Exam: tachycrdia Patient Location: E HR:113 bpm ECG Measurements Heart Rate 113 AXIS AR 146 P 53 QRSd 83 QRS 256 QT 297 T 46 QTc 409 Conclusion Sinus tachycardia...rate> 99 Inferior infarct, old...Q >35mS, II III aVF Consider anterior infarct...Q >30mS in V2-V5
--- NOTE | 2021-04-23 15:00 | DI.RAD_ITS ---
Exam(s) XR CHEST 2V PA LATERAL EXAM: XR CHEST 2V PA LATERAL CLINICAL HISTORY: PUI, fever. TECHNIQUE: 2D digital imaging was performed. COMPARISON: CR XR PORTABLE CHEST AP from 07/26/2018 FINDINGS: Heart size is normal. The mediastinum is not widened. Lungs are clear. No infiltrates nor pleural effusions. Previously present Port-A-Cath on the right side is been removed. Accessory azygos lobe on the right is again noted. IMPRESSION: No acute pulmonary findings. DATA REPOSITORY: RADIATION DOSE DELIVERED:
--- NOTE | 2021-04-23 15:00 | DI.CT_ITS ---
Exam(s) CT ABDOMEN PELVIS W EXAM: CT ABDOMEN PELVIS W CLINICAL HISTORY: hernia, colostomy, distension, nausea. TECHNIQUE: Imaging Protocol: Axial computed tomography images with coronal and sagittal reformatted images were created and reviewed CONTRAST MATERIAL: Intravenous: Omnipaque 100cc Oral: None COMPARISON: CT CT ABDOMEN PELVIS W from 10/29/2020 FINDINGS: VISUALIZED LUNG BASES: No nodules nor pleural effusions evident. ABDOMEN: There is no ascites. Again noted is a left anterior abdominal wall colostomy which contains a large peristomal anterior abdominal hernia, previously present. There are no obstructive nor edematous bow el loops at this level. There is pelvic floor herniation and small bowel loops in the pre and sub sa cral region beyond the field of view of this study. No bowel obstruction. LIVER: There are no focal hepatic lesions evident. No dilatation of intrahepatic ducts. GALLBLADDER/BILIARY: Gallbladder is surgically absent. CBD is not dilated. PANCREAS: No evidence of pancreatic mass nor dilatation of the pancreatic duct. SPLEEN: Spleen is not enlarged. No obvious intrasplenic lesions. Splenic and portal veins are paten t. ADRENALS: There are no significant adrenal masses. KIDNEYS:Left kidney appears unremarkable. There is an unchanged benign cyst in the posterior right k idney measuring 1.7 x 1.1 cm. In addition, just medial to this there is an abnormal area of medial c ortex of the right kidney measuring approximately 2.5 by 2.5 cm with surrounding fat streaking, not p reviously present on the October 2019 study and most probably consistent with focal pound nephritis ris k for developing renal carbuncle ureters are not dilated. Urinary bladder wall is thickened uniforml y. No gas within the urinary bladder.. ABDOMINAL AORTA: Not enlarged. LYMPH NODES:There is no retroperitineal nor paraaortic adenopathy. ABDOMINAL WALL: Large left parastomal hernia as described above. Also pelvic floor hernia. GI: There is no evidence of bowel obstruction, free air, nor abscess. PELVIS: GI: Appendix is difficult to find but it appears to be in the pelvic floor eventrated [place] and below the level of the field of view of this study.No evidence of sigmoid diverticulitis. LYMPH NODES: There is no intrapelvic nor inguinal adenopathy. REPRODUCTIVE: Probable hysterectomy. No abnormal adnexal findings. URINARY BLADDER: Diffusely thickened wall. Not distended. OSSEOUS: No significant osseous lesions. IMPRESSION: 1. Compared to the prior CT scan of October 2020 there are no findings in the medial cortex of the righ t kidney consistent with severe focal pound nephritis. This at high risk for developing renal absces s given its appearance. There is also a nearby unchanged benign-appearing cyst in the posterior righ t kidney. No significant focal findings in the left kidney. 2. Urinary bladder wall is diffusely thickened consistent with cystitis. 3. Left anterior abdominal wall colostomy site with large parastomal hernia again noted. 4. Pelvic floor hernia with caudal extension of bowel loops below the level of the coccyx and below t he level of the field of view of this study. The ileocecal valve and appendix are not seen as they a re below the level of the field of view of this study. Therefore cannot exclude appendicitis. RADIATION DOSE DELIVERED: 1,134.24mGy.cm Total DLP DATA REPOSITORY: All CT scans at this facility are submitted to the National Radiology Data Registry (NRDR) Dose Index Registry (DIR) with the [employer] (A[employer]). RADIATION OPTIMIZATION: All CT scans at this facility use at least one of these dose optimization te chniques: automated exposure control; mA and/or kV adjustment per patient size (includes targeted exa ms where dose is matched to clinical indication); or iterative reconstruction.
[2021-04-23] MEDS: ACETAMINOPHEN 1,000 MG/100 ML BTL 400 MG IVPB (15:02)
[2021-04-23] MEDS: Normal Saline 1,000 ML 1000 ML IV (15:03)
[2021-04-23 15:10] LABS: Source Nasal/Nares
--- NOTE | 2021-04-23 15:15 | W.ED.GENAD ---
Discharge Plan Disposition Patient Disposition: [facility] INPATIENT Discharge Details Clinical Impression: Pyelonephritis Primary Care Provider: Татьяна Rothman ED Provider: Agus Shelby Home Meds and New Rx's Prescriptions: No Action Lantus U-100 Insulin 100 unit/mL solution 20 unit subcut QPM RF: 0 (DME) catheter 14-6 Fr- misc See Rx Instructions .ROUTE .MEDSUPPLY Qty: 200 RF: 11 ZHANNA 180 MG tablet 180 mg PO DAILY RF: 0 spironolactone 25 MG tablet 50 mg PO BID RF: 0 omeprazole [Prilosec] 20 MG capsule,delayed release(DR/EC) 40 mg PO DAILY RF: 0 metformin 1,000 MG tablet 1,000 mg PO BID Qty: 180 RF: 3 allopurinol 100 mg tablet 100 mg PO DAILY RF: 0 lisinopril 5 mg tablet 5 mg PO DAILY RF: 0 ergocalciferol (vitamin D2) 1,250 mcg (50,000 unit) capsule 50,000 unit PO .WEEKLY RF: 0 fluticasone propionate 50 mcg/actuation spray,suspension 1 spray INTRANASAL PRNRF: 0 Victoza 2-Aleksander 0.6 mg/0.1 mL (18 mg/3 mL) pen injector 1.8 mg SUBCUT DAILY RF: 0 acetaminophen 325 mg Tablet 975 mg PO Q6H PRNRF: 0 polyethylene glycol 3350 [Miralax] 17 gram Powder In Packet 17 g PO BID RF: 0 ibuprofen 600 mg Tablet 600 mg PO QID PRNRF: 0 Medical Decision Making 66-year-old female diabetic with a history of rectal carcinoma for which she has had excision, colostomy placement, large ventral hernias with failure of mesh. She presents with history of returning from an uneventful trip to [place] in February, developing loose watery stools, weakness over approximately 3 weeks time, and now here on referral from urgent care after developing days of nausea, intermittent emesis, abdominal bloating, and near cessation of colostomy output. Patient has been followed by Dr. Frank of [facility] general surgery for plan to revise her abdominal hernia. She arrives to the ER with a temp of 37 8, tachycardic with a pulse 111, but no evidence of hypotension and blood pressure 150/52, she is alert and interactive. Her exam reveals a distended abdomen concerning for partial or full bowel obstruction. Additionally given her low-grade fever, will broaden work-up with Covid swab, urinalysis, chest x-ray. Note of patient's home practice of intermittent self-catheterization. Patient given 1 L fluid, acetaminophen and Zofran. Her labs note a white count of a, hematocrit 40. Slightly elevated lactic acid of 1.8. Chemistries with BUN 27, creatinine 1.1, slightly low magnesium and impressive evidence of urinary tract infection with nitrates and numerous white blood cells and bacteria. After 2 L of fluid and a gram of ceftriaxone, patient's temperature and pulse are improved CT Abd/Pelvis: Consistent with a sending urinary tract infection and pyelonephritis along with cystitis. See formal report. CXR: No acute findings. Given the patient's weakness, evidence of true pyelonephritis, initial elevated lactic acid and tachycardia, will advocate for observation admission. HPI General Mode of arrival: ambulatory. Date/Time Provider Initiated Documentation: 04/23/21 14:35. Limitations to Documentation: no limitations. Information obtained by: patient. History of Present Illness 66 year old F presents to the emergency department with the chief complaint of Bloating, nausea, vomiting, weakness, described as moderate, Quality is described as dull, and is localized to the abdomen. Patient reports no radiation. Patient started experiencing this day(s) No relieving factors improve symptom(s), Eating worsens symptoms . Patient notes other (Low-grade fever and chills, nauseated with intermittent emesis, feels bloated, had much loose watery stool but now no bowel movement for approximately 4 days. +low back pain). Patient did receive the following treatments prior to arrival, none Related Data Home Medications Medication Instructions Recorded Confirmed Zhanna 180 mg PO DAILY tab-cap 04/20/14 04/23/21 metformin 1,000 mg PO BID #180 tab-cap 04/20/14 04/23/21 omeprazole [Prilosec] 40 mg PO DAILY tab-cap 04/20/14 04/23/21 spironolactone 50 mg PO BID tab-cap 04/20/14 04/23/21 acetaminophen 975 mg PO Q6H PRN 10/03/18 04/23/21 ibuprofen 600 mg PO QID PRN 10/03/18 04/23/21 polyethylene glycol 3350 [Miralax] 17 g PO BID 10/03/18 04/23/21 catheter 14 Fr-6 #200 ea 05/29/20 05/29/20 insulin glargine 100 unit/mL 20 unit SUBCUT QPM ml 05/29/20 04/23/21 subcutaneous solution allopurinol 100 mg PO DAILY 04/23/21 04/23/21 ergocalciferol (vitamin D2) 50,000 unit PO .WEEKLY 04/23/21 04/23/21 fluticasone propionate 1 spray INTRANASAL PRN 04/23/21 liraglutide [Victoza 2-Aleksander] 1.8 mg SUBCUT DAILY 04/23/21 04/23/21 lisinopril 5 mg PO DAILY 04/23/21 04/23/21 Previous Rx's Medication Instructions Recorded catheter 14 Fr-6 #200 ea 05/29/20 Allergies Allergy/AdvReac Type Severity Reaction Status Date / Time No Known Drug Allergies Allergy Unverified 04/23/21 14:46 Seasonal allergies Allergy Mild Itchy Uncoded 04/23/21 14:46 eyes,runny nose General Stated Complaint: Nausea/Vomit/Diar LIUNS: 3 Review of Systems Narrative: Low-grade fever and chills, lightheaded and weak. No syncope, no chest pain, no cough or other URI symptoms. No known sick contacts. Immunized against COVID-19. No dark or bloody stool. Performs intermittent self-catheterization at home. See HPI. 8 systems reviewed and otherwise negative [facility] Medical History (Updated 04/23/21 @ 18:14 by Agus Shelby MD) Arthralgia History of rectal cancer Hx of malignant neoplasm of rectum Hyperlipidemia Low back pain ISIAH (obstructive sleep apnea) PCOS (polycystic ovarian syndrome) Surgical procedures, elective (07/26/18) dr duckworth port placement (R) for rectal cancer therapy Vitamin D deficiency Surgical History Colonoscopy - MAC (07/27/17) invasive adenocarcinoma, rectum. Dilation and curettage H/O colonoscopy (07/15/18) dr duckworth, no abnormalities, repeat five years History of colon resection History of creation of ostomy Hysterectomy, Laproscopic Social History Smoking/Tobacco Use Status: Never Smoking risk assessment performed?: Yes Alcohol Intake: current Alcohol Intake frequency: holidays/special occasions only Drug use: Never Substance use type: does not use Do you feel safe in your relationship?: Yes Exam Narrative Exam Narrative: GEN: awake, alert, oriented 3. Pleasant, well groomed, interactive. HEAD: Normocephalic, atraumatic ENT: Mucous membranes dry, oropharynx unremarkable, External ear exam unremarkable EYES: PERRL, EOMI NECK: Full ROM, no LOC, no menigismus CHEST/RESP: Nontender, clear to auscultation bilateral, no wheeze/rhonchi/rales CARDIOVASCULAR: Distant, tachycardic, no murmur, rub pam. 2+ Rad pulse bilateral ABDOMEN: Soft, large ventral hernia with right lower lateral colostomy bag, distended, diminished bowel sounds, mild diffuse tenderness, unable to appreciate tympany, no mass. Mild flank tenderness bilateral EXT: Full ROM, no edema, no rash Neuro: Grossly normal neurologic exam, conversant, interactive. Psych: Speech fluent, thoughts congruent, affect normal Course Vital Signs Vital signs: Vital Signs Temperature 37.8 C H 04/23/21 14:40 Pulse 117 H 04/23/21 14:40 Respiratory Rate 34 H 04/23/21 14:40 Blood Pressure 115/52 L 04/23/21 14:40 Pulse Oximetry 93 04/23/21 14:40 Temperature 37.8 C H 04/23/21 14:40 Temperature Source Skin 04/23/21 14:40 Pulse 117 H 04/23/21 14:40 Respiratory Rate 34 H 04/23/21 14:40 Respiratory Effort Non-Labored 04/23/21 14:40 Blood Pressure 115/52 L 04/23/21 14:40 Blood Pressure Position Supine 04/23/21 14:40 Pulse Oximetry 93 04/23/21 14:40 Oxygen Delivery Method Room Air 04/23/21 14:40 Oxygen Flow Rate 0 04/23/21 14:40 Pain Level 5 04/23/21 14:40 Lab/Test Results Lab/Test Results: 04/23/21 15:04 Urine - Cath Straight Urine Culture - Pending 04/23/21 14:58 Blood Blood Culture - Pending 04/23/21 14:58 Blood Blood Culture - Pending Laboratory Tests Range/Units 04/23/21 04/23/21 14:55 14:58 Magnesium Cancelled COVID-19 Source Nasal/Nares
[2021-04-23 15:17] LABS: Lactate 1.8 mmol/L (0.6-1.4)
[2021-04-23 15:19] LABS: Abs Immature Grans 0.08 10^3/uL (0.0-0.06); Absolute Basophil Count 0.03 10^3/uL (0.0-0.2); Absolute Eosinophil Count 0.02 10^3/uL (0.0-0.7); Absolute Lymphocyte Count 0.99 10^3/uL (1.2-3.4); Absolute Monocyte Count 1.71 10^3/uL (0.1-0.8); Absolute Neutrophil Count 5.93 10^3/uL (1.2-6.7); Basophils % 0.3; Eosinophils % 0.2; HGB 13.7 g/dL (11.2-15.7); Immature Grans % 0.9; Lymphocytes % 11.3; MCH 30.1 pg (27.0-33.0); MCHC 34.3 % (32.0-36.0); MCV 87.9 fL (80-95); MPV 9.8 fL (8.0-11.0); Monocytes % 19.5; Neutrophils % 67.8; Nucleated RBC 0 %; Platelet Count 195 10^3/uL (130-400); RBC 4.55 10^6/uL (3.93-5.22); RDW 11.8 % (11.7-14.6); RDW-SD 38.2 fL; WBC 8.76 10^3/uL (4.4-10.8)
[2021-04-23 15:23] LABS: Bilirubin Small (Negative); Blood Small (Negative); Clarity Cloudy (Clear); Glucose Negative (Negative); Ketones 15 mg/dL (Negative); Leukocyte Esterase Small (Negative); Nitrite Positive (Negative); Specific Gravity >= 1.030 (1.005-1.025); Urobilinogen 0.2 EU/dL (Up TO 0.2); pH 5.5 (5-8)
[2021-04-23] MEDS: Ondansetron 4 MG/2 ML VIAL IVP (15:25)
[2021-04-23 15:31] LABS: WBC >50 HPF (0-5)
[2021-04-23 15:32] LABS: Bacteria Many HPF (Negative); C & S Indicated? C&S Done As Ordered; Crystals Negative HPF (Negative); Epithelial Cells Few HPF (Negative); Mucus Negative (Negative)
[2021-04-23 15:34] LABS: Diff Comment Diff Reviewed; RBC Morphology Normal
[2021-04-23 15:35] LABS: ALT 21 U/L (14-59); AST 11 U/L (15-37); Albumin 3.2 g/dL (3.4-5.0); Alkaline Phosphatase 111 U/L (46-116); Anion Gap 12.7 mmol/L (3-11); BUN 27 mg/dL (7-18); Bilirubin, Total 0.9 mg/dL (0.2-1.0); CO2 23.3 mmol/L (21.0-32.0); CREATININE 1.1 mg/dL (0.55-1.02); Calcium 8.8 mg/dL (8.5-10.1); Chloride 97 mmol/L (98-107); Estimated GFR 50.01 (mL/min/1.73m2); Glucose 223 mg/dL (74-106); Magnesium 1.4 mg/dL (1.8-2.4); Potassium 3.6 mmol/L (3.5-5.1); Sodium 133 mmol/L (136-145); Total Protein 7.5 g/dL (6.4-8.2)
[2021-04-23] MEDS: cefTRIAXone 1 GM/50 ML BAG IVPB (15:35)
[2021-04-23 15:36] LABS: Troponin I < 0.05 ng/mL (<0.06)
[2021-04-23] MEDS: Normal Saline 250 ML IV (15:42)
[2021-04-23 15:49] LABS: INR 1.1 (0.9-1.1); PTT Activated 26.9 sec (21.0-27.5); Prothrombin Time 11.5 sec (9.3-11.0)
[2021-04-23 16:05] LABS: COVID-19 PCR Negative (Negative)
[2021-04-23] MEDS: Omnipaque 350 MG/ML 100 ML BTL IJ (17:30)
--- NOTE | 2021-04-23 18:05 | DI.VRAD_ITS ---
PROCEDURE INFORMATION: Exam: CT Abdomen And Pelvis With Contrast Exam date and time: 04/23/2021 3:15 PM Age: 66 years old Clinical indication: Other: Hernia, colostomy, distension, nausea TECHNIQUE: Imaging protocol: Computed tomography of the abdomen and pelvis with contrast. Radiation optimization: All CT scans at this facility use at least one of these dose optimization techniques: automated exposure control; mA and/or kV adjustment per patient size (includes targeted exams where dose is matched to clinical indication); or iterative reconstruction. Contrast material: OMNIPAQUE 350; Contrast volume: 100 ml; Contrast route: INTRAVENOUS (IV); COMPARISON: CT ABDOMEN PELVIS W 10/29/2020 11:27 AM FINDINGS: Lungs: There is subpleural atelectasis of the dependent portions of the lungs. Lung bases are clear. Liver: There is enlargement of the liver, measuring 20 cm. There is a diffuse decrease in hepatic parenchymal density, consistent with fatty infiltration. The liver is otherwise unremarkable. Gallbladder and bile ducts: Prior cholecystectomy. There is no evidence of biliary ductal dilation. Pancreas: Normal. No ductal dilation. Spleen: Normal. No splenomegaly. Adrenal glands: Normal. No mass. Kidneys and ureters: 2.3 cm x 2.9 cm x 3 cm focal region of irregular hypodensity within the right renal mid pole. There is inflammatory right perinephric stranding. There are multiple simple right renal cysts. Largest right renal cyst measures 2 cm. Right urothelial hyperenhancement. The left ureter is normal. Subcentimeter left renal hypodense lesions are too small to characterize but most probably benign representing cysts. The left kidney is otherwise unremarkable. Stomach and bowel: Left lower quadrant colostomy with a large parastomal hernia (measuring 17.2 cm by 13.3 cm x 16 cm), essentially stable. Mild wall thickening to 1 of the colonic loops within the hernia sac, most in favor with under distension. No other abnormalities noted to the colonic loops within the parastomal hernia. Mild colonic diverticulosis. No other segmental bowel wall thickening. Severe constipation. No bowel obstruction. Appendix: Not confidently seen. Intraperitoneal space: Unremarkable. No free air. No significant fluid collection. Vasculature: Unremarkable. No abdominal aortic aneurysm. Lymph nodes: Unremarkable. No enlarged lymph nodes. Urinary bladder: Circumferential urinary bladder wall thickening and perivesical fat stranding. Reproductive: Question of partial hysterectomy. Correlation with surgical history is recommended. Bones/joints: No acute skeletal pathology. Mild multilevel degenerative changes of the spine, as manifested by multilevel anterior osteophytes and multilevel decrease in intervertebral disc space. Soft tissues: No acute body wall soft tissue findings are appreciated. Other findings: Pelvic floor dysfunction. IMPRESSION: 1. Right renal findings are most compatible with focal pyelonephritis. 2. Right ureteral findings most concerning for a ascending UTI. 3. Urinary bladder findings most compatible with acute cystitis. 4. Stable/incidental findings as detailed above. Dictated and Authenticated by: Gibran Velarde MD. Ordering:KEIKO Goldsmith MD
--- NOTE | 2021-04-23 18:05 | DI.VRAD_ITS ---
PROCEDURE INFORMATION: Exam: XR Chest Exam date and time: 04/23/2021 4:27 PM Age: 66 years old Clinical indication: Other: Fever TECHNIQUE: Imaging protocol: XR of the chest. Views: 2 views. COMPARISON: CT CHEST/ABD/PEL W 06/11/2020 9:46 AM FINDINGS: Airway: Patent Lungs: Unremarkable. No consolidation. Pleural spaces: Unremarkable. No pleural effusion. No pneumothorax. Heart/Mediastinum: Unremarkable. No cardiomegaly. Bones/joints: No acute skeletal abnormality or aggressive osseous lesion. IMPRESSION: No acute findings. Dictated and Authenticated by: Gibran Velarde MD. Ordering:KEIKO Goldsmith MD
[2021-04-23 18:48] LABS: Lactate 0.9 mmol/L (0.6-1.4)
--- NOTE | 2021-04-23 19:26 | NUR.NOTE ---
Patient up to bedside commode to self cath. Reports emptying her bladder. Denies difficulty. Placed back in bed. Changes position independently., Tolerates movement well. Requests water and a snack.Nursing Note:
--- NOTE | 2021-04-23 19:33 | NUR.NOTE ---
Provided with ice water, tricia crackers and peanut butter.Nursing Note:
[2021-04-23] MEDS: Normal Saline 1,000 ML 150 ML IV (19:59)
[2021-04-23] MEDS: Acetaminophen 325 MG TAB 650 MG PO (21:07)
--- NOTE | 2021-04-23 21:47 | HPE_ITS ---
Date of service: 04/23/21 Time of Service: 21:48 Assessment and Plan Assessment and plan (1) Pyelonephritis: Status: Acute Assessment and plan: She has received antibiotics. Her urine culture is pending. She will be started on intravenous fluids for hydration. Her self catheterizations will be continued. (2) Hypomagnesemia: Status: Acute Assessment and plan: She will be given supplemental magnesium and her magnesium will be rechecked tomorrow. (3) Diabetes: Status: Chronic Assessment and plan: She will be continued on her regular medicines. Her blood sugars be checked. History of Present Illness History of Present Illness Chief Complaint: Diarrhea, back pain and not feeling well. Narrative: This 66-year-old female states she has had intermittent diarrhea for about 1 month. She had a low-grade fever about a month ago. She recently returned from [place] where she took her parents to a . She has not been around anyone else been sick. She does have chronic loose stools because she has a colostomy in place because of a rectal cancer which is currently in remission. Yesterday she developed some nausea and some low back pain. She has felt increasingly weak and shaky over the last 2 days with decreased appetite. She does urinary self-catheterization about every 3-4 hours and has not had any recent infections but she noted that her urine appears orange today. It is usually quite clear. She initially had some back pain on the left but had bilateral low back pain today. She had some retching with a small amount of vomiting yesterday. She has had some chills today. She came emergency department where she was seen and evaluated. It was felt she probably had a right-sided pyelonephritis based upon her CT scan and her urine results. She has had some headache today. She has had coronavirus vaccine. She has not been around anyone else been ill nor she has been around any exposure to Covid that she is aware of. 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 Review of Systems Constitutional Constitutional: Denies body ache(s), Reports chills, Reports fatigue, Denies fever(s), Reports headache(s), Reports lethargy, Reports malaise and Reports poor appetite ENT Ears, Nose, Mouth, and Throat: Reports headache(s) Cardiovascular Cardiovascular: Denies chest pain, Denies leg edema and Denies dyspnea Respiratory Respiratory: Denies cough and Denies dyspnea Gastrointestinal Gastrointestinal: Denies abdominal pain, Denies melena, Denies hematochezia, Denies heartburn, Reports diarrhea, Reports nausea and Reports vomiting Genitourinary Genitourinary: Denies difficulty voiding and Denies dysuria Musculoskeletal Musculoskeletal: Reports back pain, Denies myalgias, Denies numbness and Denies tingling Neurologic Neurologic: Reports headache(s), Denies numbness and Denies tingling Endocrine Endocrine: Reports fatigue PFSH Medical History (Updated 04/23/21 @ 21:58 by Mingo Crowder MD) Arthralgia Diabetes History of rectal cancer Hx of malignant neoplasm of rectum Hyperlipidemia Low back pain ISIAH (obstructive sleep apnea) PCOS (polycystic ovarian syndrome) Surgical procedures, elective (07/26/18) dr duckworth port placement (R) for rectal cancer therapy Vitamin D deficiency Surgical History Colonoscopy - MAC (07/27/17) invasive adenocarcinoma, rectum. Dilation and curettage H/O colonoscopy (07/15/18) dr duckworth, no abnormalities, repeat five years History of colon resection History of creation of ostomy Hysterectomy, Laproscopic Social History Smoking/Tobacco Use Status: Never Smoking risk assessment performed?: Yes Alcohol Intake: never Drug use: Never Substance use type: does not use Do you feel safe in your relationship?: Yes Meds Allergies and Home Medications Allergies Allergy/AdvReac Type Severity Reaction Status Date / Time No Known Drug Allergies Allergy Unverified 04/23/21 14:46 Seasonal allergies Allergy Mild Itchy Uncoded 04/23/21 14:46 eyes,runny nose Home Medications Medication Instructions Recorded Confirmed Type Kiana 180 mg PO DAILY tab-cap 04/20/14 04/23/21 History metformin 1,000 mg PO BID #180 tab-cap 04/20/14 04/23/21 History omeprazole [Prilosec] 40 mg PO DAILY tab-cap 04/20/14 04/23/21 History spironolactone 50 mg PO BID tab-cap 04/20/14 04/23/21 History acetaminophen 975 mg PO Q6H PRN 10/03/18 04/23/21 History ibuprofen 600 mg PO QID PRN 10/03/18 04/23/21 History polyethylene glycol 3350 [Miralax] 17 g PO BID 10/03/18 04/23/21 History catheter 14 Fr-6 #200 ea 05/29/20 05/29/20 Rx insulin glargine 100 unit/mL 20 unit SUBCUT QPM ml 05/29/20 04/23/21 History subcutaneous solution allopurinol 100 mg PO DAILY 04/23/21 04/23/21 History ergocalciferol (vitamin D2) 50,000 unit PO .WEEKLY 04/23/21 04/23/21 History fluticasone propionate 1 spray INTRANASAL PRN 04/23/21 History liraglutide [Victoza 2-Aleksander] 1.8 mg SUBCUT DAILY 04/23/21 04/23/21 History lisinopril 5 mg PO DAILY 04/23/21 04/23/21 History Exam Const General: cooperative, comfortable, no acute distress, not ill appearing, does not appear intoxicated and not lethargic Nutritional Appearance: overweight Orientation: alert, awake and oriented x3 HENMT Mouth: breath no malodorous, No mouth trauma and other (mouth is dry.) Neck Neck: normal visual inspection and no lymphadenopathy Thyroid: thyroid normal Resp Effort & Inspection: normal respiratory effort, able to speak in complete sentences and no retractions Auscultation: no rales, no rhonchi and no wheezes Cardio Jugular venous pressure: no JVD Rate: regular rate Rhythm: regular rhythm Heart Sounds: S1 normal, S2 normal and no gallops GI Palpation: soft, no hepatosplenomegaly and nontender General: No CVA tenderness Skin General skin exam: no rashes or lesions noted and turgor normal Extrem Right lower extremity: no edema Left lower extremity: no edema Psych Appearance: grossly normal Results Labs Result diagrams: 04/23/21 14:55 04/23/21 14:55 Labs: Laboratory Results - last 24 hr 04/23/21 04/23/21 04/23/21 14:55 14:55 14:55 WBC RBC Hgb Hct MCV MCH MCHC RDW Plt Count MPV Immature Gran % Neutrophils % Lymphocytes % Monocytes % Eosinophils % Basophils % Nucleated RBC % Absolute Neutrophils Absolute Lymphocytes Absolute Monocytes Absolute Eosinophils Absolute Basophils RBC Morphology PT INR APTT VBG Lactate 1.8 H Sodium 133 L Potassium 3.6 Chloride 97 L Carbon Dioxide 23.3 Anion Gap 12.7 H BUN 27 H Creatinine 1.1 H Estimated GFR/1.73 m2 50.01 Glucose 223 H Calcium 8.8 Magnesium Total Bilirubin 0.9 AST 11 L ALT 21 Alkaline Phosphatase 111 Troponin I < 0.05 Total Protein 7.5 Albumin 3.2 L Urine Color Urine Clarity Urine pH Ur Specific [place] Urine Protein Urine Ketones Urine Blood Urine Nitrite Urine Bilirubin Urine Urobilinogen Ur Leukocyte Esterase Urine RBC Urine WBC Ur Epithelial Cells Urine Crystals Urine Bacteria Urine Casts Urine Mucus Ur Culture Indicated? Urine Glucose COVID-19 Source Nasal/Nares SARS-CoV-2 (PCR) Negative 04/23/21 04/23/21 04/23/21 14:55 14:55 14:55 WBC 8.76 RBC 4.55 Hgb 13.7 Hct 40.0 MCV 87.9 MCH 30.1 MCHC 34.3 RDW 11.8 Plt Count 195 MPV 9.8 Immature Gran % 0.9 Neutrophils % 67.8 Lymphocytes % 11.3 Monocytes % 19.5 Eosinophils % 0.2 Basophils % 0.3 Nucleated RBC % 0 Absolute Neutrophils 5.93 Absolute Lymphocytes 0.99 L Absolute Monocytes 1.71 H Absolute Eosinophils 0.02 Absolute Basophils 0.03 RBC Morphology Normal PT 11.5 H INR 1.1 APTT 26.9 VBG Lactate Sodium Potassium Chloride Carbon Dioxide Anion Gap BUN Creatinine Estimated GFR/1.73 m2 Glucose Calcium Magnesium 1.4 L Total Bilirubin AST ALT Alkaline Phosphatase Troponin I Total Protein Albumin Urine Color Urine Clarity Urine pH Ur Specific [place] Urine Protein Urine Ketones Urine Blood Urine Nitrite Urine Bilirubin Urine Urobilinogen Ur Leukocyte Esterase Urine RBC Urine WBC Ur Epithelial Cells Urine Crystals Urine Bacteria Urine Casts Urine Mucus Ur Culture Indicated? Urine Glucose COVID-19 Source SARS-CoV-2 (PCR) 04/23/21 04/23/21 04/23/21 14:58 15:20 18:35 WBC RBC Hgb Hct MCV MCH MCHC RDW Plt Count MPV Immature Gran % Neutrophils % Lymphocytes % Monocytes % Eosinophils % Basophils % Nucleated RBC % Absolute Neutrophils Absolute Lymphocytes Absolute Monocytes Absolute Eosinophils Absolute Basophils RBC Morphology PT INR APTT VBG Lactate 0.9 Sodium Potassium Chloride Carbon Dioxide Anion Gap BUN Creatinine Estimated GFR/1.73 m2 Glucose Calcium Magnesium Cancelled Total Bilirubin AST ALT Alkaline Phosphatase Troponin I Total Protein Albumin Urine Color Yellow Urine Clarity Cloudy Urine pH 5.5 Ur Specific [place] >= 1.030 H Urine Protein 100 H Urine Ketones 15 H Urine Blood Small H Urine Nitrite Positive H Urine Bilirubin Small H Urine Urobilinogen 0.2 Ur Leukocyte Esterase Small H Urine RBC Urine WBC >50 H Ur Epithelial Cells Few Urine Crystals Negative Urine Bacteria Many Urine Casts 20-50 CoarseGranular Urine Mucus Negative Ur Culture Indicated? C&S Done As Ordered Urine Glucose Negative COVID-19 Source SARS-CoV-2 (PCR) Last Vital Signs Temp 36.7 C 04/23/21 20:03 Pulse 95 H 04/23/21 20:03 Resp 18 04/23/21 20:03 BP 104/72 04/23/21 20:03 Pulse Ox 97 04/23/21 20:03
[2021-04-23] MEDS: Magnesium Oxide 400 MG TAB PO (22:21)
[2021-04-23] MEDS: Lactated Ringers 1,000 ML 75 ML IV (22:35)
[2021-04-23] MEDS: Ibuprofen 600 MG TAB PO (23:49)
[2021-04-24 00:45] VITALS: BP 92/60
[2021-04-24 04:19] VITALS: BP 76/50; PULSE 76; RESP 18; TEMP 36.6; O2SAT 96
[2021-04-24] MEDS: Lactated Ringers 500 ML 1000 ML IV (04:25)
[2021-04-24 05:43] VITALS: BP 95/63; PULSE 76
[2021-04-24] MEDS: Acetaminophen 325 MG TAB 650 MG PO ×2 (06:16→15:50)
[2021-04-24 06:44] LABS: Abs Immature Grans 0.05 10^3/uL (0.0-0.06); Absolute Basophil Count 0.01 10^3/uL (0.0-0.2); Absolute Eosinophil Count 0.22 10^3/uL (0.0-0.7); Absolute Lymphocyte Count 0.69 10^3/uL (1.2-3.4); Absolute Monocyte Count 0.88 10^3/uL (0.1-0.8); Basophils % 0.2; Eosinophils % 4.5; HCT 33.4 % (36.0-46.0); HGB 11.2 g/dL (11.2-15.7); Lymphocytes % 14.1; MCHC 33.5 % (32.0-36.0); MCV 89.5 fL (80-95); Neutrophils % 62.2; Nucleated RBC 0 %; Platelet Count 158 10^3/uL (130-400); RBC 3.73 10^6/uL (3.93-5.22); RDW 11.9 % (11.7-14.6); RDW-SD 38.5 fL; WBC 4.88 10^3/uL (4.4-10.8)
[2021-04-24 06:46] LABS: Absolute Neutrophil Count 3.04 10^3/uL (1.2-6.7)
[2021-04-24 07:00] LABS: Magnesium 1.6 mg/dL (1.8-2.4)
[2021-04-24 07:02] LABS: Anion Gap 11.9 mmol/L (3-11); BUN 25 mg/dL (7-18); CO2 22.1 mmol/L (21.0-32.0); CREATININE 1.1 mg/dL (0.55-1.02); Chloride 103 mmol/L (98-107); Estimated GFR 50.01 (mL/min/1.73m2); Glucose 222 mg/dL (74-106); Potassium 3.7 mmol/L (3.5-5.1); Sodium 137 mmol/L (136-145)
[2021-04-24] MEDS: Omeprazole 20 MG CAPCR 40 MG PO (07:47)
[2021-04-24] MEDS: Allopurinol 100 MG TAB PO (07:48)
[2021-04-24] MEDS: metFORMIN 500 MG TAB 1000 MG PO ×2 (07:48→17:57)
[2021-04-24] MEDS: Magnesium Oxide 400 MG TAB PO ×2 (07:48→19:53)
[2021-04-24 08:01] VITALS: BP 91/58; PULSE 71; RESP 20; TEMP 36.1; O2SAT 94
[2021-04-24] MEDS: Ibuprofen 600 MG TAB PO ×2 (08:02→15:49)
[2021-04-24] MEDS: Lactated Ringers 1,000 ML 100 ML IV ×2 (09:53→22:56)
--- NOTE | 2021-04-24 11:33 | CHAPLAIN ---
Dede and I know each other from attending [employer] together, before COVID restrictions. Her birthday was the day before yesterday, and she said she believes she was in the hospital for her birthday about three years ago. She is feeling much better now, she said, and was able to get some sleep. She has been in touch with family members and is comfortable being here. I will continue to visit.
--- NOTE | 2021-04-24 12:01 | PDOC.CMIN ---
- If Service Date Differs Date of service: 04/24/21 Time of Service: 12:01 Care Management Initial Assess REASON FOR HOSPITALIZATION:: pyelonephritis PAST MEDICAL HISTORY/PAST SURGICAL HISTORY:: Medical History. Arthralgia. Diabetes. History of rectal cancer. Hx of malignant neoplasm of rectum. Hyperlipidemia. Low back pain. ISIAH (obstructive sleep apnea). PCOS (polycystic ovarian syndrome). Surgical procedures, elective (07/26/18). dr duckworth port placement (R) for rectal cancer therapy. Vitamin D deficiency. Surgical History. Colonoscopy - MAC (07/27/17). invasive adenocarcinoma, rectum. Dilation and curettage. H/O colonoscopy (07/15/18). dr duckworth, no abnormalities, repeat five years. History of colon resection. History of creation of ostomy. Hysterectomy, Laproscopic PREVIOUS FUNCTIONAL STATUS/SOCIAL/FAMILY SUPPORTS:: Dede lives in [facility]. She has an adopted daughter who lives with her that she provides full care for. She was a shared living provider for Myranda, and later became her guardian. She has another daughter, who also lives locally. She is independent at baseline and drives. CURRENT FUNCTIONAL STATUS:: Dede was lying in bed when CM met with her. She reported that she is feeling better now then when she arrived. She did report that she is feeling light headed. Her RN was in the room, and checked her blood pressure. She stated that the provider set the expectation that she would likely return home in a day or two, depending on how well she responds to the antibiotics. She stated that she does not have anyone at home to care for her, so she is happy to be at [facility] until she is feeling better. CM will continue to follow. ADVANCE DIRECTIVES:: None on file. CM will offer forms. Has patient been provided with info about the portal/API?: Yes Did the patient sign up for the portal?: Yes (active) CODE STATUS:: Full Code INSURANCE COVERAGE / FINANCIAL ISSUES:: [employer] CURRENT HOME/COMMUNITY SERVICES/EQUIPMENT:: no services. PRIMARY CARE PHYSICIAN:: Татьяна Rothman POTENTIAL DISCHARGE NEEDS:: Evaluations for further needs, follow up appointments. PATIENT/FAMILY EDUCATION NEEDS:: Review discharge instructions regarding activity levels and medications, discussion of self care needs including ask me three. ANTICIPATED BARRIERS TO DISCHARGE:: None identified at this time. TRANSPORTATION:: Via private vehicle by family. PLAN:: Anticipate Dede will return home when medically cleared by MD. She will be driven home via private vehicle by family. She will follow up with her PCP and discharge plan of care. CM will continue to follow.
--- NOTE | 2021-04-24 13:28 | W.PM.PROGNOT ---
Date of Service Date of service: 04/24/21 Time of Service: 13:28 Assessment and Plan Assessment and plan (1) Pyelonephritis: Status: Acute Assessment and plan: day 2 ceftriaxone. Her urine culture is pending. continue intravenous fluids for hydration. Her self catheterizations will be continued. (2) Hypomagnesemia: Status: Acute Assessment and plan: replete and follow (3) Diabetes: Status: Chronic Assessment and plan: diabetic diet with blood sugars checks ac/hs and sliding scale coverage continue home medication her hemoglobin A1C in January [address] was [address] discussed with Dr Blankenship Subjective Subjective Interval history since last seen: feels lightheaded, not feeling well. Exam Const General: cooperative, comfortable, no acute distress, not ill appearing, does not appear intoxicated and not lethargic Nutritional Appearance: overweight Orientation: alert, awake and oriented x3 HENMT Mouth: breath no malodorous, No mouth trauma and other (mouth is dry.) Neck Neck: normal visual inspection and no lymphadenopathy Thyroid: thyroid normal Resp Effort & Inspection: normal respiratory effort, able to speak in complete sentences and no retractions Auscultation: no rales, no rhonchi and no wheezes Cardio Jugular venous pressure: no JVD Rate: regular rate Rhythm: regular rhythm Heart Sounds: S1 normal, S2 normal and no gallops GI Palpation: soft and nontender General: No CVA tenderness Skin General skin exam: no rashes or lesions noted and turgor normal Extrem Right lower extremity: no edema Left lower extremity: no edema Psych Appearance: grossly normal Objective Last Vital Signs Temp 36.1 C L 04/24/21 08:01 Pulse 71 04/24/21 08:01 Resp 20 04/24/21 08:01 BP 91/58 L 04/24/21 08:01 Pulse Ox 94 04/24/21 08:01 Laboratory Results - last 24 hr 04/23/21 04/23/21 04/23/21 14:55 14:55 14:55 WBC RBC Hgb Hct MCV MCH MCHC RDW Plt Count MPV Immature Gran % Neutrophils % Lymphocytes % Monocytes % Eosinophils % Basophils % Nucleated RBC % Absolute Neutrophils Absolute Lymphocytes Absolute Monocytes Absolute Eosinophils Absolute Basophils RBC Morphology PT INR APTT VBG Lactate 1.8 H Sodium 133 L Potassium 3.6 Chloride 97 L Carbon Dioxide 23.3 Anion Gap 12.7 H BUN 27 H Creatinine 1.1 H Estimated GFR/1.73 m2 50.01 Glucose 223 H Calcium 8.8 Magnesium Total Bilirubin 0.9 AST 11 L ALT 21 Alkaline Phosphatase 111 Troponin I < 0.05 Total Protein 7.5 Albumin 3.2 L Urine Color Urine Clarity Urine pH Ur Specific [place] Urine Protein Urine Ketones Urine Blood Urine Nitrite Urine Bilirubin Urine Urobilinogen Ur Leukocyte Esterase Urine RBC Urine WBC Ur Epithelial Cells Urine Crystals Urine Bacteria Urine Casts Urine Mucus Ur Culture Indicated? Urine Glucose COVID-19 Source Nasal/Nares SARS-CoV-2 (PCR) Negative 04/23/21 04/23/21 04/23/21 14:55 14:55 14:55 WBC 8.76 RBC 4.55 Hgb 13.7 Hct 40.0 MCV 87.9 MCH 30.1 MCHC 34.3 RDW 11.8 Plt Count 195 MPV 9.8 Immature Gran % 0.9 Neutrophils % 67.8 Lymphocytes % 11.3 Monocytes % 19.5 Eosinophils % 0.2 Basophils % 0.3 Nucleated RBC % 0 Absolute Neutrophils 5.93 Absolute Lymphocytes 0.99 L Absolute Monocytes 1.71 H Absolute Eosinophils 0.02 Absolute Basophils 0.03 RBC Morphology Normal PT 11.5 H INR 1.1 APTT 26.9 VBG Lactate Sodium Potassium Chloride Carbon Dioxide Anion Gap BUN Creatinine Estimated GFR/1.73 m2 Glucose Calcium Magnesium 1.4 L Total Bilirubin AST ALT Alkaline Phosphatase Troponin I Total Protein Albumin Urine Color Urine Clarity Urine pH Ur Specific [place] Urine Protein Urine Ketones Urine Blood Urine Nitrite Urine Bilirubin Urine Urobilinogen Ur Leukocyte Esterase Urine RBC Urine WBC Ur Epithelial Cells Urine Crystals Urine Bacteria Urine Casts Urine Mucus Ur Culture Indicated? Urine Glucose COVID-19 Source SARS-CoV-2 (PCR) 04/23/21 04/23/21 04/23/21 14:58 15:20 18:35 WBC RBC Hgb Hct MCV MCH MCHC RDW Plt Count MPV Immature Gran % Neutrophils % Lymphocytes % Monocytes % Eosinophils % Basophils % Nucleated RBC % Absolute Neutrophils Absolute Lymphocytes Absolute Monocytes Absolute Eosinophils Absolute Basophils RBC Morphology PT INR APTT VBG Lactate 0.9 Sodium Potassium Chloride Carbon Dioxide Anion Gap BUN Creatinine Estimated GFR/1.73 m2 Glucose Calcium Magnesium Cancelled Total Bilirubin AST ALT Alkaline Phosphatase Troponin I Total Protein Albumin Urine Color Yellow Urine Clarity Cloudy Urine pH 5.5 Ur Specific [place] >= 1.030 H Urine Protein 100 H Urine Ketones 15 H Urine Blood Small H Urine Nitrite Positive H Urine Bilirubin Small H Urine Urobilinogen 0.2 Ur Leukocyte Esterase Small H Urine RBC Urine WBC >50 H Ur Epithelial Cells Few Urine Crystals Negative Urine Bacteria Many Urine Casts 20-50 CoarseGranular Urine Mucus Negative Ur Culture Indicated? C&S Done As Ordered Urine Glucose Negative COVID-19 Source SARS-CoV-2 (PCR) 04/24/21 04/24/21 04/24/21 06:27 06:27 06:27 WBC 4.88 D RBC 3.73 L Hgb 11.2 D Hct 33.4 L MCV 89.5 MCH 30.0 MCHC 33.5 RDW 11.9 Plt Count 158 MPV 10.0 Immature Gran % 1.0 Neutrophils % 62.2 Lymphocytes % 14.1 Monocytes % 18.0 Eosinophils % 4.5 Basophils % 0.2 Nucleated RBC % 0 Absolute Neutrophils 3.04 Absolute Lymphocytes 0.69 L Absolute Monocytes 0.88 H Absolute Eosinophils 0.22 Absolute Basophils 0.01 RBC Morphology PT INR APTT VBG Lactate Sodium 137 Potassium 3.7 Chloride 103 Carbon Dioxide 22.1 Anion Gap 11.9 H BUN 25 H Creatinine 1.1 H Estimated GFR/1.73 m2 50.01 Glucose 222 H Calcium 8.0 L Magnesium 1.6 L Total Bilirubin AST ALT Alkaline Phosphatase Troponin I Total Protein Albumin Urine Color Urine Clarity Urine pH Ur Specific [place] Urine Protein Urine Ketones Urine Blood Urine Nitrite Urine Bilirubin Urine Urobilinogen Ur Leukocyte Esterase Urine RBC Urine WBC Ur Epithelial Cells Urine Crystals Urine Bacteria Urine Casts Urine Mucus Ur Culture Indicated? Urine Glucose COVID-19 Source SARS-CoV-2 (PCR)
[2021-04-24] MEDS: MAGNESIUM SULFATE 2 GM/50 ML BAG IVPB (14:12)
[2021-04-24 15:05] VITALS: BP 95/63; PULSE 74; RESP 16; TEMP 36.3; O2SAT 94
[2021-04-24] MEDS: cefTRIAXone 1 GM/50 ML BAG IVPB (15:48)
[2021-04-24] MEDS: Normal Saline 500 ML 30 ML IV (15:48)
[2021-04-24] MEDS: Normal Saline Flush 10 ML SYR IVP (15:49)
[2021-04-24] MEDS: Insulin Aspart 300 UNITS/3 ML PEN SC (17:57)
[2021-04-24] MEDS: Spironolactone 25 MG TAB 50 MG PO (19:53)
[2021-04-24] MEDS: Insulin Glargine 300 UNITS/3 ML PEN 20 UNITS SC (19:58)
[2021-04-24 23:41] VITALS: BP 119/78; PULSE 79; RESP 20; TEMP 36.6; O2SAT 92
[2021-04-25] MEDS: Acetaminophen 325 MG TAB 650 MG PO (01:36)
[2021-04-25 07:10] VITALS: BP 110/73; PULSE 84; RESP 20; TEMP 36.9; O2SAT 93
[2021-04-25] MEDS: Insulin Aspart 300 UNITS/3 ML PEN SC ×2 (08:24→11:57)
[2021-04-25] MEDS: Spironolactone 25 MG TAB 50 MG PO (08:26)
[2021-04-25] MEDS: metFORMIN 500 MG TAB 1000 MG PO (08:27)
[2021-04-25] MEDS: Magnesium Oxide 400 MG TAB PO (08:27)
[2021-04-25] MEDS: Ibuprofen 600 MG TAB PO (08:27)
[2021-04-25] MEDS: Fexofenadine 180 MG TAB PO (08:28)
[2021-04-25] MEDS: Omeprazole 20 MG CAPCR 40 MG PO (08:28)
[2021-04-25] MEDS: Lisinopril 5 MG TAB PO (08:28)
[2021-04-25] MEDS: Allopurinol 100 MG TAB PO (08:29)
[2021-04-25] MEDS: Lactated Ringers 1,000 ML 100 ML IV (09:03)
--- NOTE | 2021-04-25 13:15 | W.PM.DS.N ---
Date of service: 04/25/21 Time of Service: 13:16 DS: Diagnosis Discharge Diagnosis (1) Pyelonephritis: Start date: 04/25/21 Start time: 13:16 Status: Acute Asessment and Plan: Patient is feeling much better. Blood cultures are negative, Urine culture grew klebsiella pneumonia sensitive to almost everything but ampicillin and nitrofurantion. She no longer has CVA tenderness. She received 2 days of ceftriaxone. She self caths and this is the first UTI she has had an over a year. She will be sent home on levaquin for a 10 day course due to complicated UTI. She denies pain, n/v/ (2) Hypomagnesemia: Start date: 04/25/21 Start time: 13:25 Status: Acute Asessment and Plan: Repleted with oral mag (3) Diabetes: Start date: 04/25/21 Start time: 13:25 Status: Chronic Asessment and Plan: continue home regimen and carb controlled diet discussed with Dr. kearns Discharge Plan Disposition Patient Disposition: HOME Condition: Good Discharge Details Reason For Visit: Pyelonephritis Admit Date/Time: 04/23/21 18:36 Admit Provider: Mingo Crowder Attending Provider: Mingo Crowder Primary Care Provider: Татьяна Rothman [facility] Hospital Course: 89 y.o female with PMH Diabetes, rectal cancer in remission with colostomy, admitted from [facility] ED for nausea and low back pain with increasing weakness and shaking. She also presented with decreased appetite. She does self cath every 3-4 hours and has not had a UTI an over a year. Labs in the ED revealed na 133, chloride 97, anion gap 12.7, bun 27, 1.1, glucose 223, mag 1.4, urine positive nitrates, small leuk est positive, greater than 50 wbc. She was admitted to m/s for pyleonephritis,and placed on ceftriaxone. Urine cx revealed klebsiella pneum. Pansensitive. Today she is feeling much better. No CVA tenderness. She stated that she had severe tenderness on her left side initially however today there is none. She feels ready for discharge. Will discharge home on a 10 day course levaquin with one week f/u with PCP. She denies CP, sOB, n/v/d/ Home Meds and New Rx's Prescriptions: New magnesium oxide 400 mg (241.3 mg magnesium) Tablet 400 mg PO BID Qty: 60 RF: 0 loperamide [Anti-Diarrheal (loperamide)] 2 mg capsule 2 mg PO QID PRNQty: 120 RF: 0 levofloxacin 750 mg tablet 750 mg PO DAILY Qty: 10 RF: 0 Bio-K plus 50 billion cell capsule,delayed release(DR/EC) 1 cap PO DAILY Qty: 30 RF: 0 Continued Lantus U-100 Insulin 100 unit/mL solution 20 unit subcut QPM RF: 0 ZHANNA 180 MG tablet 180 mg PO DAILY RF: 0 spironolactone 25 MG tablet 50 mg PO BID RF: 0 omeprazole [Prilosec] 20 MG capsule,delayed release(DR/EC) 40 mg PO DAILY RF: 0 metformin 1,000 MG tablet 1,000 mg PO BID Qty: 180 RF: 3 allopurinol 100 mg tablet 100 mg PO DAILY RF: 0 lisinopril 5 mg tablet 5 mg PO DAILY RF: 0 ergocalciferol (vitamin D2) 1,250 mcg (50,000 unit) capsule 50,000 unit PO .WEEKLY RF: 0 fluticasone propionate 50 mcg/actuation spray,suspension 1 spray INTRANASAL PRNRF: 0 Victoza 2-Aleksander 0.6 mg/0.1 mL (18 mg/3 mL) pen injector 1.8 mg SUBCUT QPM RF: 0 acetaminophen 325 mg Tablet 975 mg PO Q6H PRNRF: 0 polyethylene glycol 3350 [Miralax] 17 gram Powder In Packet 17 g PO BID RF: 0 ibuprofen 600 mg Tablet 600 mg PO QID PRNRF: 0 No Action (DME) catheter 14-6 Fr- misc See Rx Instructions .ROUTE .MEDSUPPLY Qty: 200 RF: 11 Discharge Instructions Instructions: Urinary Tract Infection in Women (DC), Kidney Infection (DC), Catheter-associated Urinary Tract Infection (DC) Additional Instructions: Take antibiotic as directed Your magnesium level was low while you were in the hospital likely from the diarrhea. This can cause diarrhea. Take it twice a day and take imodium to stop the diarrhea. Take bio-k for 30 days to prevent bacterial infection of the gut Follow up with your pcp in 1 week. Activity:: Activity as Tolerated Equipment/Supplies:: No Equipment Needed Diet:: Carb Counting Discharge Orders Discharge Orders: Discharge Order (Routine); Ordered 08/27/21 Ordered By: Cherrie Man DS: Summary Time Spent with Patient providing and/or coordinating discharge services: Less than 30 minutes Status at Discharge Functional status at discharge: independent ambulation Overall status at discharge: patient is progressing back to baseline Mental Status: mental status grossly normal Speech and Movement: speech and movement normal Mood: congruent mood Affect: normal affect Exam Const General: cooperative, comfortable, no acute distress, not ill appearing, does not appear intoxicated and not lethargic Nutritional Appearance: overweight Orientation: alert, awake and oriented x3 HENMT Head: normal to inspection, normocephalic and atraumatic Mouth: moist mucous membranes Neck Neck: normal visual inspection and no lymphadenopathy Thyroid: thyroid normal Resp Effort & Inspection: normal respiratory effort and able to speak in complete sentences Auscultation: clear to auscultation bilaterally Cardio Jugular venous pressure: no JVD Rate: regular rate Rhythm: regular rhythm Heart Sounds: S1 normal and S2 normal GI Palpation: soft and no hepatosplenomegaly General: No CVA tenderness and deferred Back/Spine/Pelvis Back: no CVA tenderness Cervical Spine: normal cervical lordosis Skin General skin exam: no rashes or lesions noted and turgor normal Neuro General: patient alert, patient awake and patient oriented x3 Extrem General: normal to inspection, full ROM and no clubbing, cyanosis or edema Right lower extremity: normal to inspection Left lower extremity: normal to inspection Psych Appearance: grossly normal Mental Status: mental status grossly normal Speech and Movement: speech and movement normal Mood: congruent mood Affect: normal affect Attitude: cooperative Thought Process: normal Thought Content: normal Insight: insight good Judgment: judgment good DS: Data Vitals/I&O Vitals and I&O: Vital Signs Temperature 36.9 C 04/25/21 07:10 Temperature Source Tympanic 04/25/21 07:10 Pulse 84 04/25/21 07:10 Pulse Rhythm Regular 04/25/21 09:40 Pulse 92 H 04/23/21 19:27 Respiratory Rate 20 04/25/21 07:10 Respiratory Effort Non-Labored 04/25/21 09:40 Respiratory Depth Normal 04/25/21 09:40 Respiratory Pattern Normal 04/25/21 09:40 Blood Pressure 110/73 04/25/21 07:10 Blood Pressure Mean 68 04/23/21 19:27 Blood Pressure Position Supine 04/23/21 14:40 Pulse Oximetry 93 04/25/21 07:10 Oxygen Delivery Method Room Air 04/25/21 07:10 Oxygen Flow Rate 0 04/25/21 07:10 Pain Level 6 04/25/21 08:27 Comment 04/24/21 04:19 Intake & Output 04/24/21 04/25/21 04/25/21 23:59 11:59 23:59 Intake Total 1620 / 2527.5 1360 / 1360 Output Total 1000 / 1950 1200 / 1200 Balance 620 / 577.5 160 / 160 Intake: IV 1000 / 1907.5 1000 / 1000 Oral 620 / 620 360 / 360 Output: Urine 1000 / 1950 1200 / 1200 Other: Urine Color Yellow Yellow Urine Appearance Clear Clear Urine Odor Strong Comment Patient self cath herself every 4 hours Voiding Methods Self-Catheterization Self-Catheterization Data Completed and Pending Completed studies during hospitalization [Text1]: Exam(s) XR CHEST 2V PA LATERAL EXAM: XR CHEST 2V PA LATERAL CLINICAL HISTORY: PUI, fever. TECHNIQUE: 2D digital imaging was performed. COMPARISON: CR XR PORTABLE CHEST AP from 07/26/2018 FINDINGS: Heart size is normal. The mediastinum is not widened. Lungs are clear. No infiltrates nor pleural effusions. Previously present Port-A-Cath on the right side is been removed. Accessory azygos lobe on the right is again noted. IMPRESSION: No acute pulmonary findings. Exam(s) a CT:CT abdomen & pelvis w Exam(s) CT ABDOMEN PELVIS W EXAM: CT ABDOMEN PELVIS W CLINICAL HISTORY: hernia, colostomy, distension, nausea. TECHNIQUE: Imaging Protocol: Axial computed tomography images with coronal and sagittal reformatted images were created and reviewed CONTRAST MATERIAL: Intravenous: Omnipaque 100cc Oral: None COMPARISON: CT CT ABDOMEN PELVIS W from 10/29/2020 FINDINGS: VISUALIZED LUNG BASES: No nodules nor pleural effusions evident. ABDOMEN: There is no ascites. Again noted is a left anterior abdominal wall colostomy which contains a large peristomal anterior abdominal hernia, previously present. There are no obstructive nor edematous bowel loops at this level. There is pelvic floor herniation and small bowel loops in the pre and sub sacral region beyond the field of view of this study. No bowel obstruction. LIVER: There are no focal hepatic lesions evident. No dilatation of intrahepatic ducts. GALLBLADDER/BILIARY: Gallbladder is surgically absent. CBD is not dilated. PANCREAS: No evidence of pancreatic mass nor dilatation of the pancreatic duct. SPLEEN: Spleen is not enlarged. No obvious intrasplenic lesions. Splenic and portal veins are patent. ADRENALS: There are no significant adrenal masses. KIDNEYS:Left kidney appears unremarkable. There is an unchanged benign cyst in the posterior right kidney measuring 1.7 x 1.1 cm. In addition, just medial to this there is an abnormal area of medial cortex of the right kidney measuring approximately 2.5 by 2.5 cm with surrounding fat streaking, not previously present on the October 2019 study and most probably consistent with focal pound nephritis risk for developing renal carbuncle ureters are not dilated. Urinary bladder wall is thickened uniformly. No gas within the urinary bladder.. ABDOMINAL AORTA: Not enlarged. LYMPH NODES:There is no retroperitineal nor paraaortic adenopathy. ABDOMINAL WALL: Large left parastomal hernia as described above. Also pelvic floor hernia. GI: There is no evidence of bowel obstruction, free air, nor abscess. PELVIS: GI: Appendix is difficult to find but it appears to be in the pelvic floor eventrated [place] and below the level of the field of view of this study.No evidence of sigmoid diverticulitis. LYMPH NODES: There is no intrapelvic nor inguinal adenopathy. REPRODUCTIVE: Probable hysterectomy. No abnormal adnexal findings. URINARY BLADDER: Diffusely thickened wall. Not distended. OSSEOUS: No significant osseous lesions. IMPRESSION: 1. Compared to the prior CT scan of October 2020 there are no findings in the medial cortex of the right kidney consistent with severe focal pound nephritis. This at high risk for developing renal abscess given its appearance. There is also a nearby unchanged benign-appearing cyst in the posterior right kidney. No significant focal findings in the left kidney. 2. Urinary bladder wall is diffusely thickened consistent with cystitis. 3. Left anterior abdominal wall colostomy site with large parastomal hernia again noted. 4. Pelvic floor hernia with caudal extension of bowel loops below the level of the coccyx and below the level of the field of view of this study. The ileocecal valve and appendix are not seen as they are below the level of the field of view of this study. Therefore cannot exclude appendicitis. Exam(s) PROCEDURE INFORMATION: Exam: CT Abdomen And Pelvis With Contrast Exam date and time: 04/23/2021 3:15 PM Age: 66 years old Clinical indication: Other: Hernia, colostomy, distension, nausea TECHNIQUE: Imaging protocol: Computed tomography of the abdomen and pelvis with contrast. Radiation optimization: All CT scans at this facility use at least one of these dose optimization techniques: automated exposure control; mA and/or kV adjustment per patient size (includes targeted exams where dose is matched to clinical indication); or iterative reconstruction. Contrast material: OMNIPAQUE 350; Contrast volume: 100 ml; Contrast route: INTRAVENOUS (IV); COMPARISON: CT ABDOMEN PELVIS W 10/29/2020 11:27 AM FINDINGS: Lungs: There is subpleural atelectasis of the dependent portions of the lungs. Lung bases are clear. Liver: There is enlargement of the liver, measuring 20 cm. There is a diffuse decrease in hepatic parenchymal density, consistent with fatty infiltration. The liver is otherwise unremarkable. Gallbladder and bile ducts: Prior cholecystectomy. There is no evidence of biliary ductal dilation. Pancreas: Normal. No ductal dilation. Spleen: Normal. No splenomegaly. Adrenal glands: Normal. No mass. Kidneys and ureters: 2.3 cm x 2.9 cm x 3 cm focal region of irregular hypodensity within the right renal mid pole. There is inflammatory right perinephric stranding. There are multiple simple right renal cysts. Largest right renal cyst measures 2 cm. Right urothelial hyperenhancement. The left ureter is normal. Subcentimeter left renal hypodense lesions are too small to characterize but most probably benign representing cysts. The left kidney is otherwise unremarkable. Stomach and bowel: Left lower quadrant colostomy with a large parastomal hernia (measuring 17.2 cm by 13.3 cm x 16 cm), essentially stable. Mild wall thickening to 1 of the colonic loops within the hernia sac, most in favor with under distension. No other abnormalities noted to the colonic loops within the parastomal hernia. Mild colonic diverticulosis. No other segmental bowel wall thickening. Severe constipation. No bowel obstruction. Appendix: Not confidently seen. Intraperitoneal space: Unremarkable. No free air. No significant fluid collection. Vasculature: Unremarkable. No abdominal aortic aneurysm. Lymph nodes: Unremarkable. No enlarged lymph nodes. Urinary bladder: Circumferential urinary bladder wall thickening and perivesical fat stranding. Reproductive: Question of partial hysterectomy. Correlation with surgical history is recommended. Bones/joints: No acute skeletal pathology. Mild multilevel degenerative changes of the spine, as manifested by multilevel anterior osteophytes and multilevel decrease in intervertebral disc space. Soft tissues: No acute body wall soft tissue findings are appreciated. Other findings: Pelvic floor dysfunction. IMPRESSION: 1. Right renal findings are most compatible with focal pyelonephritis. 2. Right ureteral findings most concerning for a ascending UTI. 3. Urinary bladder findings most compatible with acute cystitis. 4. Stable/incidental findings as detailed above. Labs on day of discharge: Preliminary micro results at discharge 04/23/21 15:50 Blood Culture - Preliminary Blood NO GROWTH 24 HOURS 04/23/21 15:40 Blood Culture - Preliminary Blood NO GROWTH 24 HOURS [facility] Medical History Arthralgia Diabetes History of rectal cancer Hx of malignant neoplasm of rectum Hyperlipidemia Low back pain ISIAH (obstructive sleep apnea) PCOS (polycystic ovarian syndrome) Surgical procedures, elective (07/26/18) dr duckworth port placement (R) for rectal cancer therapy Vitamin D deficiency Surgical History Colonoscopy - MAC (07/27/17) invasive adenocarcinoma, rectum. Dilation and curettage H/O colonoscopy (07/15/18) dr duckworth, no abnormalities, repeat five years History of colon resection History of creation of ostomy Hysterectomy, Laproscopic Social History Smoking/Tobacco Use Status: Never Smoking risk assessment performed?: Yes Alcohol Intake: never Drug use: Never Substance use type: does not use Do you feel safe in your relationship?: Yes
--- NOTE | 2021-04-25 14:51 | W.INDIABCONS ---
Date of service: 04/25/21 Time of Service: 14:51 Diabetes Inpatient Consult DESCRIPTION/ASSESSMENT: 66 year old female admitted with pyelonephritis with hx of colon CA with colostomy, DM2, obesity. Most recent A1C: 7.1% (02/26/21) indicates well controlled Dm on current home meds. Home DM meds: metformin 1000 mg BID, 20 u glargine q PM, 1.8 mg victoza q PM. Following Diabetic diet with adequate intake. PLAN: Continue current meal plan, will monitor po intake, labs, weight Time Spent in Nutritional Counseling and Treatment: 0
--- NOTE | 2021-04-25 15:43 | PDOC.CMDIS ---
- If Service Date Differs Date of service: 04/25/21 Time of Service: 15:43 LACE Index Scoring Tool - Questions: Length of Stay (in days): 2 Acuity (Admit via E.D.?): Yes Comorbidities: Diabetes w/o Complication, Any Tumor E.D. Visits: 1 - Answers: Total Score: 9 Risk of Readmission: Low Risk Care Management Discharge Reason for Hospitalization: pyelonephritis Discharge Plan: Dede will return home today with no services at this time. She will be driven home via private vehicle by family. She will follow up with her PCP and discharge plan of care. She is happy to be going home, as she is feeling much better today. Patient/Family Education Needs: Review discharge instructions regarding activity levels and medications, discussion of self care needs including ask me three.
== END 2021-04-25 16:08 | disposition home or self-care (01) | DRG 690 ==
LOC: ER 18:45 → MS 19:43
PROVIDERS: Admitting Provider Family Medicine; Emergency Provider Emergency Medicine; PCP Nurse Practitioner Family; Visit Provider Family Medicine
DX: N10 Acute pyelonephritis (principal); E83.42 Hypomagnesemia; E11.9 Type 2 diabetes mellitus without complications; Z93.3 Colostomy status; M54.5 Low back pain; Z85.048 Personal history of other malignant neoplasm of rectum, rectosigmoid junction, and anus; E78.5 Hyperlipidemia, unspecified; G47.33 Obstructive sleep apnea (adult) (pediatric); E55.9 Vitamin D deficiency, unspecified; Z20.822 Contact with and (suspected) exposure to COVID-19; B96.1 Klebsiella pneumoniae [K. pneumoniae] as the cause of diseases classified elsewhere
CPT/HCPCS: 36415; 80048; 80053; 87040; 87077; 87635; 93005; 96361; 96365; 96375; 99285; 71046; 74177; 81003; 81015; 83605; 83735; 84484; 85025; 85610; 85730; 87086; 87186; 93010; 99222; 99233; 99238; J0131; J0696; J2405; J3490

== ENCOUNTER 2021-04-23 15:28 | Outpatient (REF) | payer MEDICAID, SELFPAY ==
[2021-04-25 17:33] LABS: COVID-19 RT-PCR UVMMC Result Negative (Negative)
== END 2021-04-23 15:29 | disposition home or self-care (01) ==
LOC: LBN 15:28
PROVIDERS: PCP Nurse Practitioner Family; Visit Provider Nurse Practitioner Family
DX: Z20.822 Contact with and (suspected) exposure to COVID-19 (principal)
CPT/HCPCS: U0003

== ENCOUNTER 2021-05-12 01:58 | Outpatient (CLI) | payer MEDICAID, SELFPAY ==
--- NOTE | 2021-05-12 | DI.CT_ITS ---
Exam(s) CT CHEST WO EXAM: CT CHEST WO CLINICAL HISTORY: RECTAL CANCER C20, S/P RADIATION, SURGERY AND CHEMO, RESTAGING TECHNIQUE: Imaging Protocol: Axial computed tomography images with coronal and sagittal reformatted images were created and reviewed CONTRAST MATERIAL: Noncontrast COMPARISON: CT CT CHEST/ABD/PEL W from 06/11/[address] CHEST/ABD/PEL W from 06/11/[address] ABDOMEN PELVIS W from 04/23/[address] ABDOMEN PELVIS W from 04/23/2021 FINDINGS: Tracheobronchial tree: No bronchiectasis or mucous plugging. Mediastinum and Tita: No dominant adenopathy or fluid collection. Pulmonary parenchyma: No consolidation or dominant measurable mass. Incidental azygos lobe. Pleura: No effusion or pneumothorax. Heart: The heart is not dilated. Minimal coronary artery calcifications are seen. Aorta: Thoracic aorta non-dilated. Upper abdomen: Status post cholecystectomy. Fatty liver. Lymph nodes: Within normal limits. Bones: Mild degenerative disc changes. Soft tissues: Unremarkable. IMPRESSION: No evidence of metastatic disease in the chest. RADIATION DOSE DELIVERED: 632.4mGy.cm Total DLP DATA REPOSITORY: All CT scans at this facility are submitted to the National Radiology Data Registry (NRDR) Dose Index Registry (DIR) with the [employer] (ACR). RADIATION OPTIMIZATION: All CT scans at this facility use at least one of these dose optimization te chniques: automated exposure control; mA and/or kV adjustment per patient size (includes targeted exa ms where dose is matched to clinical indication); or iterative reconstruction.
== END 2021-05-12 02:18 ==
PROVIDERS: PCP Nurse Practitioner Family; Visit Provider Nurse Practitioner Family
DX: C20 Malignant neoplasm of rectum (principal)
CPT/HCPCS: 71250

== ENCOUNTER 2021-06-02 04:02 | Outpatient (CLI) | payer MEDICAID, SELFPAY ==
[2021-06-02 09:52] LABS: COMMENT (LAB VIEW ONLY) 68.52 mg/dL; Microalb ug/mg Crea 5.1 ug/mg Cr
[2021-06-02 10:22] LABS: TSH 0.02 uIU/mL (0.36-3.74); Vitamin B12 803 pg/mL (193-986)
[2021-06-02 10:47] LABS: Vitamin D 25 Total 22.7 ng/mL (30-100)
[2021-06-02 10:52] LABS: FREE T4 1.15 ng/dL (0.76-1.46)
[2021-06-02 17:06] LABS: T3, Total 144 ng/dL (97-169)
== END 2021-06-02 04:03 | disposition home or self-care (01) ==
PROVIDERS: PCP Nurse Practitioner Family; Visit Provider Internal Medicine Endocrinology, Diabetes & Metabolism
DX: E11.21 Type 2 diabetes mellitus with diabetic nephropathy (principal); Z79.4 Long term (current) use of insulin; E79.0 Hyperuricemia without signs of inflammatory arthritis and tophaceous disease; E78.5 Hyperlipidemia, unspecified; E05.00 Thyrotoxicosis with diffuse goiter without thyrotoxic crisis or storm; E05.90 Thyrotoxicosis, unspecified without thyrotoxic crisis or storm; E11.29 Type 2 diabetes mellitus with other diabetic kidney complication; R80.9 Proteinuria, unspecified; E55.9 Vitamin D deficiency, unspecified
CPT/HCPCS: 36415; 82306; 82043; 82570; 82607; 83036; 84439; 84443; 84480

== ENCOUNTER 2021-06-20 02:02 | Outpatient (CLI) | payer MEDICAID, SELFPAY ==
[2021-06-20 12:53] LABS: Abs Immature Grans 0.03 10^3/uL (0.0-0.06); Absolute Basophil Count 0.05 10^3/uL (0.0-0.2); Absolute Eosinophil Count 0.42 10^3/uL (0.0-0.7); Absolute Lymphocyte Count 1.92 10^3/uL (1.2-3.4); Absolute Monocyte Count 0.62 10^3/uL (0.1-0.8); Absolute Neutrophil Count 4.71 10^3/uL (1.2-6.7); Basophils % 0.6; Eosinophils % 5.4; HCT 42.4 % (36.0-46.0); HGB 14.4 g/dL (11.2-15.7); Immature Grans % 0.4; Lymphocytes % 24.8; MCH 29.8 pg (27.0-33.0); MCV 87.8 fL (80-95); MPV 9.5 fL (8.0-11.0); Neutrophils % 60.8; Nucleated RBC 0 %; Platelet Count 302 10^3/uL (130-400); RBC 4.83 10^6/uL (3.93-5.22); RDW 12.6 % (11.7-14.6); RDW-SD 40.8 fL; WBC 7.75 10^3/uL (4.4-10.8)
[2021-06-20 13:08] LABS: ALT 34 U/L (14-59); AST 17 U/L (15-37); Alkaline Phosphatase 130 U/L (46-116); Anion Gap 9.9 mmol/L (3-11); BUN 17 mg/dL (7-18); Bilirubin, Total 0.3 mg/dL (0.2-1.0); CO2 26.1 mmol/L (21.0-32.0); CREATININE 1.1 mg/dL (0.55-1.02); Chloride 105 mmol/L (98-107); Estimated GFR 50.01 (mL/min/1.73m2); Glucose 224 mg/dL (74-106); Potassium 4.1 mmol/L (3.5-5.1); Sodium 141 mmol/L (136-145); Total Protein 7.5 g/dL (6.4-8.2)
[2021-06-20 22:46] LABS: CEA 2.7 ng/mL (See Note)
== END 2021-06-20 02:03 | disposition home or self-care (01) ==
LOC: LBO 02:02
PROVIDERS: PCP Nurse Practitioner Family; Visit Provider Internal Medicine Hematology & Oncology
DX: C20 Malignant neoplasm of rectum (principal)
CPT/HCPCS: 36415; 80053; 82378; 85025

== ENCOUNTER 2021-06-30 09:51 | Outpatient (REF) | payer MEDICAID, SELFPAY ==
[2021-06-30 16:21] LABS: ALT 29 U/L (14-59); AST 15 U/L (15-37); Calculated LDL 86 mg/dL (<100); Cholesterol 169 mg/dL (<200); HDL Cholesterol 28 mg/dL (40-60); Triglyceride 279 mg/dL (<150)
[2021-06-30 16:34] LABS: Creatine Kinase 46 U/L (26-192)
== END 2021-06-30 09:52 | disposition home or self-care (01) ==
LOC: NCHCN 09:51
PROVIDERS: PCP Nurse Practitioner Family; Visit Provider Nurse Practitioner Family
DX: E78.5 Hyperlipidemia, unspecified (principal)
CPT/HCPCS: 80061; 82550; 84450; 84460

== ENCOUNTER 2021-10-23 02:12 | Outpatient (CLI) | payer MEDICAID, SELFPAY ==
[2021-10-23 11:41] LABS: Abs Immature Grans 0.01 10^3/uL (0.0-0.06); Absolute Basophil Count 0.05 10^3/uL (0.0-0.2); Absolute Eosinophil Count 0.58 10^3/uL (0.0-0.7); Absolute Lymphocyte Count 1.51 10^3/uL (1.2-3.4); Absolute Monocyte Count 0.71 10^3/uL (0.1-0.8); Absolute Neutrophil Count 3.79 10^3/uL (1.2-6.7); Basophils % 0.8; Eosinophils % 8.7; HCT 46.1 % (36.0-46.0); HGB 15.2 g/dL (11.2-15.7); Immature Grans % 0.2; Lymphocytes % 22.7; MCH 29.5 pg (27.0-33.0); MCV 89.5 fL (80-95); MPV 10.1 fL (8.0-11.0); Monocytes % 10.7; Neutrophils % 56.9; Nucleated RBC 0 %; Platelet Count 293 10^3/uL (130-400); RBC 5.15 10^6/uL (3.93-5.22); RDW 12.3 % (11.7-14.6); RDW-SD 40.7 fL; WBC 6.65 10^3/uL (4.4-10.8)
[2021-10-23 12:29] LABS: Hemoglobin A1C 7.9 % (<5.7)
[2021-10-23 12:40] LABS: ALT 31 U/L (14-59); AST 14 U/L (15-37); Albumin 4.2 g/dL (3.4-5.0); Alkaline Phosphatase 154 U/L (46-116); Anion Gap 12.8 mmol/L (3-11); BUN 20 mg/dL (7-18); Bilirubin, Total 0.5 mg/dL (0.2-1.0); CO2 22.2 mmol/L (21.0-32.0); Calcium 9.3 mg/dL (8.5-10.1); Chloride 105 mmol/L (98-107); Estimated GFR 55.82 (mL/min/1.73m2); Glucose 152 mg/dL (74-106); LDL CHOLESTEROL 90 mg/dL (<100); Potassium 4.6 mmol/L (3.5-5.1); Sodium 140 mmol/L (136-145); TSH 0.58 uIU/mL (0.36-3.74); Total Protein 7.3 g/dL (6.4-8.2)
[2021-10-29 15:22] LABS: 25-Hydroxy D Total 46 ng/mL; 25-Hydroxy D2 43 ng/mL; 25-Hydroxy D3 2.8 ng/mL
== END 2021-10-23 02:13 | disposition home or self-care (01) ==
LOC: LBO 02:12
PROVIDERS: PCP Nurse Practitioner Family; Visit Provider Internal Medicine Endocrinology, Diabetes & Metabolism
DX: E11.21 Type 2 diabetes mellitus with diabetic nephropathy (principal); E79.0 Hyperuricemia without signs of inflammatory arthritis and tophaceous disease; E78.5 Hyperlipidemia, unspecified; E05.00 Thyrotoxicosis with diffuse goiter without thyrotoxic crisis or storm; C20 Malignant neoplasm of rectum
CPT/HCPCS: 36415; 80053; 82306; 83721; 82378; 83036; 84443; 85025

== ENCOUNTER 2022-01-06 01:37 | Outpatient (CLI) | payer MEDICAID, SELFPAY ==
--- OUTSIDE RECORDS SUMMARY | 2022-01-06 01:39 | XMS_ITS ---
:1955 Author Care Team Providers Name Role Phone [facility] RECORDS Primary Care Provider [phone] BLANKA BAUER APRN Primary Care Provider [phone] Allergies Code Code System Name Reaction Severity Status Onset NKDA ? Medications Name Status Start Date Stop Date ? ? albuterol sulfate 2.5 mg/3 mL (0.083 %) solution for nebulizatio n Active ? Not available Inhale 3 mL 3 times a day by nebulization route. Ambien 5 mg tablet Completed 02/20/2013 02/21/2013 1 Tablet: as needed cetirizine 10 mg tablet Active ? Not avai lable Take 1 tablet every day by oral route at bedtime. citalopram 20 mg tablet Completed ? 05/22/20 20 Take 1 tablet every day by oral route. clotrimazole 1 % topical cream Active ? N ot available APPLY TO THE AFFECTED AND SURROUNDING A REAS OF SKIN BY TOPICAL ROUTE 2 TIMES PER DAY IN THE MORNING AND EVENING Comfort EZ Pen [place] 31 gauge x Active ? Not available 11/12 fluticasone propionate 50 mcg/actuation nasal spray,suspension A ctive ? Not available [place] 1 spray every day by intranasal route. ibuprofen 200 mg tablet Active ? Not avai lable Take 3 tablets as needed by oral route as needed. Lantus Solostar U-100 Insulin 100 unit/mL (3 mL) subcutaneous pe n Active ? Not available Inject by subcutaneous route. metformin 500 mg tablet Active ? Not avai lable Take 4 tablets every day by oral route. Miralax 17 gram/dose oral powder Active ? Not available Take 17 g every day by oral route. omeprazole 20 mg capsule,delayed release Active ? Not available Take 1 capsule every day by oral route. One Touch Basic System kit Active ? Not a vailable One Touch Lancets Active ? Not available prochlorperazine maleate 10 mg tablet Active ? Not available Take 1 tablet 3 times a day by oral route. spironolactone 50 mg tablet Active ? Not available Take 1 tablet twice a day by oral route. Ventolin HFA Active ? Not available 2 puffs Q4hrs Problems Name Status Onset Date Source ? Vitamin B Deficiency Active 03/06/2019 ? Vitamin D Deficiency Active 03/06/2019 ? Hyperlipidemia Active 03/06/2019 ? Osteoarthritis Active 03/06/2019 ? Low Back Pain Active 03/06/2019 ? Snoring Active 03/06/2019 ? Polycystic Ovaries Active 03/06/2019 ? Type 2 Diabetes Mellitus Active 05/13/2020 ? Gout Active 05/13/2020 ? Hernia of Abdominal Cavity Active 05/13/2020 ? Gastrointestinal Hemorrhage Active 05/13/2020 ? Acute Urinary Tract Infection Active 05/13/2020 ? Myalgia/myositis - Multiple Active 05/13/2020 ? Laboratory Test Result Abnormal Active 05/13/2020 ? History of Urinary Tract Infection Active 05/13/2020 ? Colostomy Present Active 05/13/2020 ? Adult Health Examination Active 05/13/2020 ? Screening Procedure Active 05/13/2020 ? Polycystic Ovary Syndrome Active 05/13/2020 ? Adenocarcinoma Active ? ? Obstructive Sleep Apnea Syndrome Active ? History Allergic Rhinitis Active ? History Seasonal Allergy Active ? ? Constipation Active ? ? Chronic Urinary Tract Infection Active ? ? Rheumatoid Arthritis Active ? ? Joint Pain Active ? ? Muscle Pain Active ? ? Foot Pain Active ? ? Retention of Urine Active ? ? Abnormal Cervical Papanicolaou Smear Active ? ? Aftercare Active ? History Colostomy Active ? ? Hysterectomy Active ? ? Procedures Date Name Performed by ? ? Hysterectomy Information not avai lable Results Lab Results None recorded. Past Encounters None recorded. Social History Tobacco Smoking Status Never Smoker Vaccine List None recorded. Plan of Care Reminders Provider Appointments None ? ? recorded. Lab None ? ? recorded. Referral None ? ? recorded. Procedures None ? ? recorded. Surgeries None ? ? recorded. Imaging None ? ? recorded. Vitals 05/22/2020 12:30PM New Patient 47 Height Weight BMI 157.48 cm 90.26 kg 36.4 kg/m2 03/21/2014 Height Weight Blood Pressure 157.48 cm 97.55 kg 120/72 mm[Hg] 05/15/2013 Height Weight Blood Pressure 157.48 cm 91.63 kg 112/70 mm[Hg] 02/20/2013 Height Weight Blood Pressure 157.48 cm 95.25 kg 122/74 mm[Hg]
[2022-01-06 19:04] LABS: Bilirubin Negative (Negative); Blood Trace-intact (Negative); Clarity Clear (Clear); Glucose Negative (Negative); Ketones Negative (Negative); Leukocyte Esterase Small (Negative); Nitrite Positive (Negative); Specific Gravity 1.025 (1.005-1.025); Urobilinogen 0.2 EU/dL (Up TO 0.2); pH 5.5 (5-8)
[2022-01-06 19:11] LABS: Bacteria Moderate HPF (Negative); C & S Indicated? Yes; Casts Negative LPF (Negative); Crystals Negative HPF (Negative); Epithelial Cells Rare HPF (Negative); Mucus Negative (Negative); WBC 20-50 HPF (0-5)
== END 2022-01-06 01:38 | disposition home or self-care (01) ==
PROVIDERS: PCP Nurse Practitioner Family; Referring Provider Nurse Practitioner Family; Visit Provider Nurse Practitioner Family
DX: R35.0 Frequency of micturition (principal)
CPT/HCPCS: 87077; 81003; 81015; 87086; 87186

== ENCOUNTER 2022-01-13 02:20 | Outpatient (CLI) | payer MEDICAID, SELFPAY | END 2022-01-13 02:21 | disposition home or self-care (01) | LOC: LBO 02:21 | PROVIDERS: PCP Nurse Practitioner Family; Visit Provider Internal Medicine Endocrinology, Diabetes & Metabolism ==

== ENCOUNTER 2022-01-14 12:15 | Outpatient (REF) | payer MEDICAID, SELFPAY ==
[2022-01-14 15:17] LABS: HCT 47.4 % (36.0-46.0); HGB 15.9 g/dL (11.2-15.7); MCH 30.2 pg (27.0-33.0); MCHC 33.5 % (32.0-36.0); MCV 90 fL (80-95); MPV 10.5 fL (8.0-11.0); Platelet Count 379 10^3/uL (130-400); RBC 5.27 10^6/uL (3.93-5.22); RDW 12.7 % (11.7-14.6); RDW-SD 41.2 fL; WBC 11.34 10^3/uL (4.4-10.8)
[2022-01-14 16:21] LABS: ALT 34 U/L (14-59); AST 14 U/L (15-37); Albumin 4.2 g/dL (3.4-5.0); Alkaline Phosphatase 119 U/L (46-116); Anion Gap 16.2 mmol/L (3-11); BUN 28 mg/dL (7-18); Bilirubin, Total 0.3 mg/dL (0.2-1.0); CO2 18.8 mmol/L (21.0-32.0); CREATININE 1.3 mg/dL (0.55-1.02); Calcium 9.4 mg/dL (8.5-10.1); Chloride 104 mmol/L (98-107); Estimated GFR 41.24 (mL/min/1.73m2); Glucose 175 mg/dL (74-106); Magnesium 1.8 mg/dL (1.8-2.4); Potassium 4.8 mmol/L (3.5-5.1); Sodium 139 mmol/L (136-145); TSH 0.77 uIU/mL (0.36-3.74); Total Protein 7.4 g/dL (6.4-8.2)
== END 2022-01-14 12:16 | disposition home or self-care (01) ==
LOC: NCHCN 12:15
PROVIDERS: PCP Nurse Practitioner Family; Visit Provider Nurse Practitioner Family
DX: R00.2 Palpitations (principal); R42 Dizziness and giddiness
CPT/HCPCS: 80053; 85027; 83735; 84443

== ENCOUNTER 2022-02-12 16:52 | Outpatient (REF) | payer MEDICAID, SELFPAY ==
[2022-02-12 15:24] LABS: HCT 44.9 % (36.0-46.0); MCH 30.5 pg (27.0-33.0); MCHC 33.4 % (32.0-36.0); MCV 91 fL (80-95); MPV 10.7 fL (8.0-11.0); Platelet Count 316 10^3/uL (130-400); RBC 4.91 10^6/uL (3.93-5.22); RDW 13.2 % (11.7-14.6); RDW-SD 44.3 fL
[2022-02-12 15:29] LABS: ESR 9 mm/hr (0-30)
[2022-02-12 16:27] LABS: Hemoglobin A1C 7.5 % (<5.7)
[2022-02-12 16:43] LABS: ALT 31 U/L (14-59); AST 22 U/L (15-37); Albumin 3.9 g/dL (3.4-5.0); Alkaline Phosphatase 106 U/L (46-116); Anion Gap 13.1 mmol/L (3-11); BUN 21 mg/dL (7-18); Bilirubin, Total 0.4 mg/dL (0.2-1.0); C-Reactive Protein 0.15 mg/dL (0.0-0.3); CO2 22.9 mmol/L (21.0-32.0); CREATININE 1.1 mg/dL (0.55-1.02); Calcium 9.2 mg/dL (8.5-10.1); Chloride 105 mmol/L (98-107); Estimated GFR 50.01 (mL/min/1.73m2); Glucose 160 mg/dL (74-106); Potassium 4.5 mmol/L (3.5-5.1); Sodium 141 mmol/L (136-145); Total Protein 7.5 g/dL (6.4-8.2)
[2022-02-13 09:03] LABS: Lipase 64 U/L (73-393)
== END 2022-02-12 16:53 | disposition home or self-care (01) ==
LOC: NCHCN 16:52
PROVIDERS: PCP Nurse Practitioner Family; Visit Provider Family Medicine
DX: K92.1 Melena (principal); E11.9 Type 2 diabetes mellitus without complications; R19.7 Diarrhea, unspecified; Z85.048 Personal history of other malignant neoplasm of rectum, rectosigmoid junction, and anus
CPT/HCPCS: 80053; 83690; 85027; 85652; 82378; 83036; 86140

== ENCOUNTER 2022-02-16 03:00 | Outpatient (RCR) | payer MEDICAID, SELFPAY ==
--- NOTE | 2022-02-16 08:45 | HOLTER_ITS ---
APPROVED REPORT Conclusion This is a 48-hour Holter monitor ordered for palpitations Predominant rhythm was sinus with an average heart rate of 83. Minimum was 62, maximum 126 There were very rare isolated atrial and premature ventricular contractions There was one self-limited atrial run 5 beats in duration No patient symptoms were reported
== END 2022-02-26 23:59 | disposition home or self-care (01) ==
LOC: RT 03:00
PROVIDERS: PCP Nurse Practitioner Family; Visit Provider Nurse Practitioner Family
DX: R42 Dizziness and giddiness (principal); R00.2 Palpitations; I49.1 Atrial premature depolarization
CPT/HCPCS: 93225; 93226

== ENCOUNTER 2022-04-02 15:39 | Outpatient (REF) | payer MEDICARE, MEDICAID, SELFPAY ==
[2022-04-02 21:02] LABS: Abs Immature Grans 0.02 10^3/uL (0.0-0.06); Absolute Basophil Count 0.07 10^3/uL (0.0-0.2); Absolute Eosinophil Count 0.55 10^3/uL (0.0-0.7); Absolute Lymphocyte Count 1.92 10^3/uL (1.2-3.4); Absolute Monocyte Count 0.88 10^3/uL (0.1-0.8); Absolute Neutrophil Count 4.83 10^3/uL (1.2-6.7); Basophils % 0.8; Eosinophils % 6.7; HGB 15.3 g/dL (11.2-15.7); Immature Grans % 0.2; Lymphocytes % 23.2; MCH 30.4 pg (27.0-33.0); MCHC 33.3 % (32.0-36.0); MCV 91 fL (80-95); MPV 10.6 fL (8.0-11.0); Monocytes % 10.6; Neutrophils % 58.5; Platelet Count 298 10^3/uL (130-400); RBC 5.04 10^6/uL (3.93-5.22); RDW 12.8 % (11.7-14.6); RDW-SD 42.5 fL; WBC 8.27 10^3/uL (4.4-10.8)
[2022-04-02 21:25] LABS: WBC >50 HPF (0-5)
[2022-04-02 21:26] LABS: Bacteria Many HPF (Negative); C & S Indicated? C&S Done As Ordered; Casts Negative LPF (Negative); Crystals Negative HPF (Negative); Mucus Negative (Negative)
[2022-04-02 21:53] LABS: ALT 53 U/L (14-59); AST 23 U/L (15-37); Albumin 4.1 g/dL (3.4-5.0); Alkaline Phosphatase 107 U/L (46-116); Anion Gap 12.4 mmol/L (3-11); BUN 19 mg/dL (7-18); Bilirubin, Total 0.3 mg/dL (0.2-1.0); CO2 25.6 mmol/L (21.0-32.0); Calcium 9.4 mg/dL (8.5-10.1); Chloride 100 mmol/L (98-107); Estimated GFR 55.82 (mL/min/1.73m2); Glucose 143 mg/dL (74-106); Potassium 4.2 mmol/L (3.5-5.1); Sodium 138 mmol/L (136-145); TSH (W/Ref FT4) 0.87 uIU/mL (0.36-3.74); Total Protein 7.3 g/dL (6.4-8.2)
[2022-04-04 12:06] LABS: COVID-19 RT-PCR UVMMC Result Negative (Negative)
== END 2022-04-02 15:40 | disposition home or self-care (01) ==
LOC: LBN 15:39
PROVIDERS: PCP Nurse Practitioner Family; Visit Provider Physician Assistant Medical
DX: Z20.822 Contact with and (suspected) exposure to COVID-19 (principal); R53.1 Weakness
CPT/HCPCS: 80053; 87077; U0003; 81015; 84443; 85025; 87086; 87186

== ENCOUNTER 2022-04-06 02:06 | Outpatient (CLI) | payer MEDICARE, MEDICAID, SELFPAY ==
[2022-04-06] MEDS: Barium Sulfate 2% W/V-Berry Smoothie 450 ML BTL 900 ML PO (09:51)
[2022-04-06] MEDS: Normal Saline Flush 10 ML SYR IVP (11:03)
[2022-04-06] MEDS: Omnipaque 350 MG/ML 100 ML BTL IJ (11:03)
--- NOTE | 2022-04-06 11:05 | DI.CT_ITS ---
Exam(s) CT CHEST/ABD/PEL W EXAM: CT CHEST/ABD/PEL W CLINICAL HISTORY: S/P RECTAL CA, CHEMO/RT, COMP 11/17 AND 05/20. TECHNIQUE: Imaging Protocol: Axial computed tomography images with coronal and sagittal reformatted images were created and reviewed CONTRAST MATERIAL: Intravenous: Omnipaque 350 Contrast volume:100 ml Oral: None COMPARISON: CT CT ABDOMEN PELVIS W from 04/23/2021 FINDINGS: CHEST: LUNGS: Accessory azygos lobe on the right again noted. Benign-appearing increased markings in the li ngular segment left lung. No new ominous pulmonary nodules and no pleural effusions. No significant findings in the trachea and mainstem bronchi. MEDIASTINUM: There is no hilar nor mediastinal adenopathy. Visualized thyroid unremarkable. CARDIAC: Heart size is normal. There is no pericardial effusion.Caliber of the thoracic aorta is wit hin normal limits. OSSEOUS: No significant osseous lesions.. ABDOMEN: There is no ascites. Left anterior abdominal wall colostomy again noted with parastomal hernia again noted. Contains bowel loops, nonobstructed and non edematous. There is also again noted pelvic uday or herniation and small bowel loops are again evident in the pre and sub sacral region, including bey ond-pre low the field of view of this study. The lower most bowel loops in the sub coccygeal region do not appear edematous. LIVER: There are no focal hepatic lesions nor dilatation of intrahepatic ducts. See ptosis again not ed. GALLBLADDER/BILIARY: Gallbladder is again noted be surgically absent. CBD is not dilated. PANCREAS: No evidence of pancreatic mass nor dilatation of the pancreatic duct. SPLEEN: Spleen is not enlarged. There are no intrasplenic lesions. Splenic and portal veins are weiss nt. ADRENALS: There are no significant adrenal masses. KIDNEYS: No calculi nor hydronephrosis. No solid renal masses. The previously present abscess in the right kidney is no longer seen. There are small cysts in both kidneys. No solid renal masses. ABDOMINAL AORTA: Abdominal aorta is not enlarged. LYMPH NODES: There is no retroperitoneal nor paraaortic adenopathy. ABDOMINAL WALL: Fat containing anterior abdominal wall umbilical hernia also noted, this above the le april of the large left anterior abdominal wall hernia. GI: There is no evidence of bowel obstruction. PELVIS: LYMPH NODES: There is no intrapelvic nor inguinal adenopathy. GI: No evidence of appendicitis.However, there does appear to be some thickening of the wall of the a scending-right colon. URINARY BLADDER: There is circumferential uniform thickening of the urinary bladder wall again noted. No gas within the abnormal appearing bladder wall. No radiopaque calculi nor obvious masses in the lumen. REPRODUCTIVE: Uterus appears to be surgically absent. No abnormal adnexal masses OSSEOUS: No significant osseous lesions. IMPRESSION: 1. No evidence of metastatic disease in the chest. No new lung nodules, pleural effusions, nor intra thoracic adenopathy. 2. Large left of center sub colostomy hernia again noted. No bowel obstruction at this level. Small er umbilical fat containing. 3. Caudal herniation of the pelvic floor with nondilated small bowel loops extending below-beyond the field of view of this study into the sub coccygeal region. No small bowel obstruction. No free flu id. 4. There appears to be a generalized abnormal thickening of the ascending-right colon wall. This req uires follow-up. Appendix appears unremarkable. 5. Gallbladder and uterus are surgically absent. 6. Abnormal circumferential uniform thickening of the urinary bladder wall is again noted. No gas w ithin the lumen nor within the urinary bladder wall. The urinary bladder is not distended. RADIATION DOSE DELIVERED: 2,136.48mGy.cm Total DLP DATA REPOSITORY: All CT scans at this facility are submitted to the National Radiology Data Registry (NRDR) Dose Index Registry (DIR) with the [employer] (ACR). RADIATION OPTIMIZATION: All CT scans at this facility use at least one of these dose optimization te chniques: automated exposure control; mA and/or kV adjustment per patient size (includes targeted exa ms where dose is matched to clinical indication); or iterative reconstruction.
== END 2022-04-06 02:26 ==
PROVIDERS: PCP Nurse Practitioner Family; Visit Provider Nurse Practitioner Adult Health
DX: K42.9 Umbilical hernia without obstruction or gangrene (principal); R93.5 Abnormal findings on diagnostic imaging of other abdominal regions, including retroperitoneum
CPT/HCPCS: 74177; 71260; J3490

== ENCOUNTER 2022-04-14 10:49 | Outpatient (REF) | payer MEDICARE, MEDICAID, SELFPAY | END 2022-04-14 10:50 | disposition home or self-care (01) | LOC: NCHCN 10:49 | PROVIDERS: PCP Nurse Practitioner Family; Visit Provider Nurse Practitioner Family | DX: N39.0 Urinary tract infection, site not specified (principal) | CPT/HCPCS: 87077; 87086; 87186; 87480; 87510; 87660 ==

== ENCOUNTER 2022-07-31 02:19 | Outpatient (CLI) | payer MEDICARE, MEDICAID, SELFPAY ==
[2022-07-31 14:32] LABS: Abs Immature Grans 0.03 10^3/uL (0.0-0.06); Absolute Basophil Count 0.08 10^3/uL (0.0-0.2); Absolute Eosinophil Count 0.29 10^3/uL (0.0-0.7); Absolute Lymphocyte Count 2.01 10^3/uL (1.2-3.4); Absolute Monocyte Count 0.79 10^3/uL (0.1-0.8); Absolute Neutrophil Count 3.57 10^3/uL (1.2-6.7); Basophils % 1.2; Eosinophils % 4.3; HGB 15.2 g/dL (11.2-15.7); Immature Grans % 0.4; Lymphocytes % 29.7; MCH 30.3 pg (27.0-33.0); MCHC 34.5 % (32.0-36.0); MCV 88 fL (80-95); MPV 10.3 fL (8.0-11.0); Monocytes % 11.7; Neutrophils % 52.7; Platelet Count 324 10^3/uL (130-400); RBC 5.01 10^6/uL (3.93-5.22); RDW 12.5 % (11.7-14.6); RDW-SD 40.6 fL; WBC 6.77 10^3/uL (4.4-10.8)
[2022-07-31 14:42] LABS: Hemoglobin A1C 8.8 % (<5.7)
[2022-07-31 15:34] LABS: ALT 48 U/L (14-59); AST 23 U/L (15-37); Albumin 4.1 g/dL (3.4-5.0); Alkaline Phosphatase 130 U/L (46-116); BUN 23 mg/dL (7-18); Bilirubin, Total 0.5 mg/dL (0.2-1.0); CREATININE 1.1 mg/dL (0.55-1.02); Calcium 9.2 mg/dL (8.5-10.1); Chloride 98 mmol/L (98-107); Creatine Kinase 53 U/L (26-192); Estimated GFR 55.76 (mL/min/1.73m2); Glucose 253 mg/dL (74-106); Potassium 3.5 mmol/L (3.5-5.1); Sodium 129 mmol/L (136-145); TSH 0.95 uIU/mL (0.36-3.74); Total Protein 7.6 g/dL (6.4-8.2)
[2022-07-31 15:35] LABS: HDL Cholesterol 28 mg/dL (40-60)
[2022-07-31 15:45] LABS: LDL CHOLESTEROL 77 mg/dL (<100)
[2022-08-03 08:43] LABS: CEA 4.9 ng/mL (See Note)
[2022-08-03 11:34] LABS: Vitamin D 25 Total 15.3 ng/mL (30-100)
== END 2022-07-31 02:20 | disposition home or self-care (01) ==
LOC: LBO 02:19
PROVIDERS: PCP Nurse Practitioner Family; Visit Provider Internal Medicine Hematology & Oncology
DX: C20 Malignant neoplasm of rectum (principal); E11.21 Type 2 diabetes mellitus with diabetic nephropathy; Z79.4 Long term (current) use of insulin; E79.0 Hyperuricemia without signs of inflammatory arthritis and tophaceous disease; E78.5 Hyperlipidemia, unspecified; E05.00 Thyrotoxicosis with diffuse goiter without thyrotoxic crisis or storm
CPT/HCPCS: 36415; 80053; 82306; 82550; 83721; 82378; 83036; 83718; 84443; 85025

== ENCOUNTER 2022-08-21 12:17 | Outpatient (REF) | payer MEDICARE, MEDICAID, SELFPAY ==
[2022-08-21 12:14] LABS: Bilirubin Negative (Negative); Blood Negative (Negative); Clarity Clear (Clear); Glucose Negative (Negative); Ketones Negative (Negative); Leukocyte Esterase Negative (Negative); Nitrite Negative (Negative); Urobilinogen 0.2 EU/dL (Up TO 0.2); pH 5.5 (5-8)
== END 2022-08-21 12:18 | disposition home or self-care (01) ==
LOC: LBN 12:17
PROVIDERS: PCP Nurse Practitioner Family; Visit Provider Nurse Practitioner Gerontology
DX: N39.0 Urinary tract infection, site not specified (principal)
CPT/HCPCS: 81003; 87086

== ENCOUNTER 2022-10-07 14:12 | Outpatient (CLI) | payer MEDICARE, MEDICAID, SELFPAY | END 2022-10-07 14:13 | disposition home or self-care (01) | LOC: LBO 14:12 | PROVIDERS: PCP Nurse Practitioner Family; Visit Provider Nurse Practitioner Gerontology | DX: N39.0 Urinary tract infection, site not specified (principal) | CPT/HCPCS: 81003; 99213 ==

== ENCOUNTER 2022-10-07 15:43 | Outpatient (REF) | payer MEDICARE, MEDICAID, SELFPAY | END 2022-10-07 15:44 | disposition home or self-care (01) | LOC: LBN 15:43 | PROVIDERS: PCP Nurse Practitioner Family; Visit Provider Nurse Practitioner Gerontology | DX: N39.0 Urinary tract infection, site not specified (principal); B96.20 Unspecified Escherichia coli [E. coli] as the cause of diseases classified elsewhere | CPT/HCPCS: 87077; 87086; 87186 ==

== ENCOUNTER 2022-11-24 22:30 | Outpatient (REF) | payer MEDICARE, MEDICAID, SELFPAY ==
[2022-11-24 20:17] LABS: Bilirubin Negative (Negative); Blood Trace-lysed (Negative); Clarity Cloudy (Clear); Glucose 100 mg/dL (Negative); Ketones Negative (Negative); Leukocyte Esterase Moderate (Negative); Nitrite Positive (Negative); Specific Gravity >= 1.030 (1.005-1.025); Urobilinogen 0.2 mg/dL (Up to 0.2); pH 5.5 (5-8)
[2022-11-24 20:25] LABS: Bacteria Many HPF (Negative); C & S Indicated? C&S Done As Ordered; Casts Negative LPF (Negative); Crystals Negative HPF (Negative); Epithelial Cells Rare HPF (Negative); Mucus Negative (Negative); Other Cells Negative (Negative); WBC >50 HPF (0-5)
== END 2022-11-24 22:31 | disposition home or self-care (01) ==
LOC: LBN 22:30
PROVIDERS: PCP Nurse Practitioner Family; Visit Provider Nurse Practitioner Gerontology
DX: R30.0 Dysuria (principal)
CPT/HCPCS: 87077; 81003; 81015; 87086; 87186

== ENCOUNTER 2022-12-18 19:50 | Emergency (ER) | payer MEDICARE, MEDICAID, SELFPAY ==
[2022-12-18] VITALS (31 sets, daily range): BP systolic 129–172; BP diastolic 74–109; PULSE 75–102; RESP 4–27; TEMP 36.1; O2SAT 89–98
--- NOTE | 2022-12-18 20:00 | DI.CT_ITS ---
Exam(s) CT ABDOMEN PELVIS W EXAM: CT ABDOMEN PELVIS W CLINICAL HISTORY: abd pain. TECHNIQUE: Imaging Protocol: Axial computed tomography images with coronal and sagittal reformatted images were created and reviewed CONTRAST MATERIAL: Intravenous: Omnipaque 350 Contrast volume:100 ml Oral: yes / no COMPARISON: CT CHEST ABD PELVIS WITH CONTRAST from 08/09/[address] ABDOMEN PELVIS W from 04/23/[address] CHEST/ABD/PEL W from 04/06/2022 FINDINGS: ABDOMEN: Lung Bases: Normal where visualized. Liver: Mildly enlarged. Mild fatty infiltration.. No measurable mass. Gallbladder and biliary tract: Status post cholecystectomy. No radiodense calculus or dilation. Pancreas: Atrophy., no abnormal calcifications or inflammatory process. Spleen: Mildly enlarged at 15 cm. Kidneys: Normal size, contour and axis. No radiodense stones. Mild left hydronephrosis. Some strand ing around distal ureter. Findings sec could be secondary to cystitis and infection. No suspicious masses seen. Adrenal glands: No masses seen. Abdominal Aorta: Abdominal portion non-dilated. Soft tissues: Left mid-lower some quadrant ostomy with large abdominal wall defect and bowel and fat herniating through. No evidence of obstruction. PELVIS: Bladder: Marked wall thickening. No calculi.No focal mass. Bowel: No obstruction. No bowel wall thickening. Appendix normal. Large quantity of stool in the c olon. Status post resection of rectum and anus. Peritoneal cavity: No ascites, collection or mesenteric inflammatory response. Bones: Degenerative changes. Reproductive organs: Status post hysterectomy. Lymph nodes: Unremarkable. Soft tissues: Inferior pelvic floor hernia again noted with loops of colon and small bowel. Cecum an d appendix are at this level. No evidence of obstruction. No change in appearance. Impression: 1. Marked bladder wall thickening suspicious for cystitis. Mild dilatation of the left ureter and s ome surrounding stranding. Dense of obstructing stone. 2. Stable appearance of left side abdominal wall hernia in region of colostomy. Large quantity of s tool. 3. Stable appearance inferior pelvic floor hernia. RADIATION DOSE DELIVERED: 1,251.29mGy.cm Total DLP DATA REPOSITORY: All CT scans at this facility are submitted to the National Radiology Data Registry (NRDR) Dose Index Registry (DIR) with the [employer] (ACR). RADIATION OPTIMIZATION: All CT scans at this facility use at least one of these dose optimization te chniques: automated exposure control; mA and/or kV adjustment per patient size (includes targeted exa ms where dose is matched to clinical indication); or iterative reconstruction.
[2022-12-18 20:20] LABS: Abs Immature Grans 0.04 10^3/uL (0.0-0.06); Absolute Basophil Count 0.08 10^3/uL (0.0-0.2); Absolute Eosinophil Count 0.28 10^3/uL (0.0-0.7); Absolute Lymphocyte Count 2.26 10^3/uL (1.2-3.4); Absolute Monocyte Count 0.78 10^3/uL (0.1-0.8); Absolute Neutrophil Count 5.11 10^3/uL (1.2-6.7); Basophils % 0.9; Eosinophils % 3.3; HCT 47.9 % (36.0-46.0); HGB 16.5 g/dL (11.2-15.7); Immature Grans % 0.5; Lymphocytes % 26.4; MCH 30.3 pg (27.0-33.0); MCHC 34.4 % (32.0-36.0); MCV 88 fL (80-95); MPV 10.3 fL (8.0-11.0); Monocytes % 9.1; Neutrophils % 59.8; Platelet Count 341 10^3/uL (130-400); RBC 5.45 10^6/uL (3.93-5.22); RDW 12.1 % (11.7-14.6); RDW-SD 38.9 fL; WBC 8.55 10^3/uL (4.4-10.8)
[2022-12-18] MEDS: Omnipaque 350 MG/ML 50 ML BTL PO (20:23)
[2022-12-18] MEDS: Breeza Beverage 473 ML BTL PO (20:23)
--- NOTE | 2022-12-18 20:34 | ED.GENADUL_ITS ---
Discharge Plan Disposition Patient Disposition: Home Discharge Details Clinical Impression: Abdominal pain Primary Care Provider: Татьяна Rothman ED Provider: Nuno Staton Home Meds and New Rx's Prescriptions: No Action mesalamine 500 mg capsule, extended release 1,000 mg PO DAILY Premarin 0.625 mg/gram cream 0.625 mg vaginal DIRECTED Qty: 90 4RF Rx Instructions: apply a pea sized amount to the vaginal opening nightly x 14 days then decrease to 2 times a week insulin glargine [Lantus U-100 Insulin] 100 unit/mL solution 50 unit subcut QPM (DME) catheter 14-6 Fr- misc See Rx Instructions .ROUTE .MEDSUPPLY Qty: 200 11RF Rx Instructions: As directed ZHANNA 180 MG tablet 180 mg PO DAILY spironolactone 25 MG tablet 50 mg PO BID omeprazole [Prilosec] 20 MG capsule,delayed release(DR/EC) 40 mg PO DAILY metformin 1,000 MG tablet 1,000 mg PO BID Qty: 180 Rx Instructions: Take 1 tab PO every 12 hours allopurinol 100 mg tablet 100 mg PO DAILY Patient Comments: TAKE 1 TABLET BY MOUTH EVERY DAY ergocalciferol (vitamin D2) 1,250 mcg (50,000 unit) capsule 50,000 unit PO .WEEKLY fluticasone propionate 50 mcg/actuation spray,suspension 1 spray INTRANASAL PRN Patient Comments: SHAKE LIQUID AND USE 2 SPRAYS IN EACH NOSTRIL EVERY DAY NEEDED loperamide [Anti-Diarrheal (loperamide)] 2 mg capsule 2 mg PO QID PRNQty: 120 0RF Bio-K plus 50 billion cell capsule,delayed release(DR/EC) 1 cap PO DAILY Qty: 30 0RF atorvastatin [Lipitor] 20 mg tablet 20 mg PO DAILY Patient Comments: Take 1 tablet by mouth once a day Trulicity 1.5 mg/0.5 mL pen injector SUBCUT 7XD Patient Comments: INJECT 0.5ML SUBCUTANEOUSLY ONCE A WEEK losartan 25 mg tablet 25 mg PO DAILY Patient Comments: Take 1 tablet by mouth once a day [facility] Endo acetaminophen 325 mg Tablet 975 mg PO Q6H PRN polyethylene glycol 3350 [Miralax] 17 gram Powder In Packet 17 g PO BID ibuprofen 600 mg Tablet 600 mg PO QID PRN Discharge Instructions Instructions: Abdominal Pain (ED) Additional Instructions: Continue to take your normally prescribed medications and monitor for any worsening symptoms. If you have any significant worsening of your condition feel free to return to the emergency department for reassessment otherwise follow-up with your primary care provider as needed for recheck especially if your symptoms continue. Referrals: Татьяна Rothman [Primary Care Provider] - 1 week (As needed for reassessment) Discharge Data Discharge Date/Time-TO BE ENTERED AT DEPARTURE: 12/18/22 23:20 Medical Decision Making Patient presenting to the emergency department for chief complaint of abdominal pain that is cramping and radiating into her back. She states this started approximately 4 hours ago. She does have significant complicated abdominal history with history of colon cancer leading to colostomy, and 2 significant hernias, diabetes, hypomagnesemia, obstructive sleep apnea, hyperlipidemia. Surgical history of colon resection, ostomy, hysterectomy. She does states she has had malaise for the past week or so. Other acute history includes a UTI which she states she no longer has symptoms for and finished her Cipro last week. Patient denies any cardiac or respiratory symptoms, fever chills. Physical exam shows hypoactive bowel sounds, soft abdomen but visible herniation noted around colostomy site. No ecchymosis noted to abdominal wall exam otherwise unremarkable. We will plan on checking labs and CT imaging. Given patient's complex history will perform CT imaging with oral contrast. Pending results will give Zofran and acetaminophen. Reviewed patient's labs does show elevated RBC hemoglobin and hematocrit but otherwise unremarkable CBC, CMP does show BUN of 20, glucose of 204, otherwise unremarkable CMP. Magnesium is slightly low at 1.6 which we will give oral repletion for and lipase is 21. I did reassess patient and she does state significant improvement of discomfort but continues to report no output from ostomy bag. We will continue to monitor. Pending CT imaging urinalysis was obtained and patient has trace lysed blood but otherwise no obvious signs of infection. Reviewed CT imaging that does show some signs of residual inflammation from patient's UTI but given unremarkable urinalysis I do not feel this is anything acute. Patient does report history of chronic colitis which she is due to see gastroenterology for which was noted on the CT imaging so again nothing needed to be done. All other findings do not seem to be change from previous examination. Will discharge patient to follow-up with primary care provider but did instruct her to have low threshold to return. Patient does state since she is feeling significantly better than when she arrived she does feel comfortable with plan of care of discharge and conservative management at home. After discussion of diagnosis and plan of care patient has no further needs, questions, or concerns and states clear understanding to return to the emergency department for any worsening symptoms. This documentation was generated using [employer] dictation system, please disregard any oddities of phrase or misspellings. Imaging Data Radiologic Study: Imaging: CT Scan Radiologist's impression: Exam(s) PROCEDURE INFORMATION: Exam: CT Abdomen And Pelvis With Contrast Exam date and time: 12/18/2022 9:57 PM Age: 67 years old Clinical indication: Abdominal tenderness and other: Lower abd pain, starting 4 days ago; Prior surgery; Surgery date: 6+ months; Surgery type: Gallbladder, appendix, colostomy, hernia repair; Patient HX: Rectal cancer TECHNIQUE: Imaging protocol: Computed tomography of the abdomen and pelvis with contrast. Contrast material: OMNIPAQUE 350; Contrast volume: 100 ml; Contrast route: INTRAVENOUS (IV); COMPARISON: CT CHEST/ABD/PEL W 04/06/2022 11:04 AM FINDINGS: Lungs: Mild atelectasis in the lung bases. Mediastinal space: The visualized distal esophagus is largely contracted without gross abnormality. Liver: Liver dome partially excluded from the scan range. Question mild fatty infiltration of the liver. Mild hepatomegaly measuring approximately 20 cm craniocaudal. Normal contour. No mass lesions. No intrahepatic biliary ductal dilatation. Gallbladder and bile ducts: Prior cholecystectomy with no significant dilatation of the common bile duct. Pancreas: Moderate pancreatic atrophy without acute abnormality. No pancreatic ductal dilatation. Spleen: Mild splenomegaly measuring 14.8 cm. Adrenal glands: Normal. No adrenal mass. Kidneys and ureters: Mild bilateral symmetrical perinephric stranding, nonspecific. This is unchanged and may relate to chronic perirenal scarring. Mild left-sided pelvicaliectasis and ureterectasis. No urolithiasis. Mild ureteropelvic wall thickening and periureteral stranding with mild distal ureteral wall enhancement. This is suspicious for changes of UTI, correlate with UA. No urinary tract stones are identified. Small left renal cortical cysts which do not require further assessment. Stomach and bowel: The stomach is unremarkable. No acute small bowel abnormalities are identified. No bowel dilatation to suggest obstruction. Small bowel and cecum are again noted tracking into the posterior pelvic floor hernia off the lower edge of the scan range similar to 04/06/2022. Appendix: The appendix is normal in caliber and demonstrates no evidence of appendicitis. It has an atypical position in the pelvic floor hernia. Intraperitoneal space: No free fluid or air. Vasculature: No acute process. No abdominal aortic aneurysm. Lymph nodes: No adenopathy. Urinary bladder: Moderate urinary bladder wall thickening with slight adjacent stranding, possibly cystitis, correlate with UA. Reproductive: Unremarkable as visualized. Bones/joints: No acute osseous abnormalities. Soft tissues: Distal colectomy with left lower quadrant colostomy, with a large peristomal hernia containing herniated fat and a portion of transverse colon with no evidence of associated bowel obstruction or strangulation. Moderate stool in the distal colon, possibly an element of constipation. Mild wall thickening in the proximal colon could represent an mild component of colitis. Otherwise unremarkable. IMPRESSION: 1. Urinary bladder wall thickening and mild adjacent stranding suspicious for cystitis, with slight left-sided ureteropelvic wall thickening and distal ureteral wall enhancement, also concerning for changes of UTI. No evidence of pyelonephritis or abscess. Mild left pelvicaliectasis and ureterectasis. No urolithiasis. 2. Prior distal colectomy with left lower quadrant colostomy again noted, with large peristomal hernia containing herniated fat, transverse colon, and distal colon, unchanged from prior scan. 3. Large pelvic floor hernia which contains herniated fat, small bowel, and cecum, also unchanged. 4. Mild wall thickening in the proximal colon may be due to contracted status although can not exclude mild colitis. Moderate stool in the distal colon suggesting possible element of constipation. 5. Mild hepatomegaly and fatty infiltration of the liver. 6. Mild splenomegaly. 7. Additional nonemergent findings detailed above. Dictated and Authenticated by: Mingo Vanegas MD. Lab Data Lab results reviewed: Yes I reviewed the patient's lab results. HPI General Mode of arrival: ambulatory . Date/Time Provider Initiated Documentation: 12/18/22 20:08 . Limitations to Documentation: no limitations . Information obtained by: patient and RN notes reviewed . History of Present Illness 67 year old F presents to the emergency department with the chief complaint of abd pain , described as moderate, with intensity rated at 6. Quality is described as other (cramping), and is localized to the abdomen. P atient reports radiation to back. Patient started experiencing this hour(s) (4) and it has been constant. No relieving factors improve symptom(s), No exacerbating factors reported . Patient notes malaise. Patient did receive the following treatments prior to arrival, none Related Data Home Medications Medication Instructions Recorded Confirmed Zhanna 180 mg PO DAILY 04/20/14 04/23/21 metformin 1,000 mg tablet 1,000 mg PO BID #180 tab-caps 04/20/14 12/18/22 omeprazole 20 mg capsule,delayed 40 mg PO DAILY 04/20/14 12/18/22 release (Prilosec) spironolactone 25 mg tablet 50 mg PO BID 04/20/14 12/18/22 acetaminophen 325 mg tablet 975 mg PO Q6H PRN 10/03/18 12/18/22 ibuprofen 600 mg tablet 600 mg PO QID PRN 10/03/18 12/18/22 polyethylene glycol 3350 17 gram 17 g PO BID 10/03/18 12/18/22 oral powder packet (Miralax) catheter 14 Fr-6 #200 ea 05/29/20 06/02/21 insulin glargine 100 unit/mL 50 unit subcut QPM 05/29/20 12/18/22 subcutaneous solution (Lantus U-100 Insulin) allopurinol 100 mg tablet 100 mg PO DAILY 04/23/21 12/18/22 ergocalciferol (vitamin D2) 1,250 50,000 unit PO .WEEKLY 04/23/21 12/18/22 mcg (50,000 unit) capsule fluticasone propionate 50 1 spray intranasal PRN 04/23/21 mcg/actuation nasal spray,suspension L. acidophilus,casei,rhamnosus 50 1 cap PO DAILY #30 caps 04/25/21 12/18/22 billion cell capsule,delayed release (Bio-K plus) loperamide 2 mg capsule 2 mg PO QID PRN #120 caps 04/25/21 12/18/22 (Anti-Diarrheal (loperamide)) conjugated estrogens 0.625 mg/gram 0.625 mg vaginal DIRECTED #90 08/05/22 12/18/22 vaginal cream (Premarin) grams mesalamine 500 mg capsule,extended 1,000 mg PO DAILY 08/05/22 12/18/22 release atorvastatin 20 mg tablet (Lipitor) 20 mg PO DAILY 12/18/22 12/18/22 dulaglutide 1.5 mg/0.5 mL mg subcut 7XD 12/18/22 subcutaneous pen injector (Trulicity) losartan 25 mg tablet 25 mg PO DAILY 12/18/22 12/18/22 Previous Rx's Medication Instructions Recorded catheter 14 Fr-6 #200 ea 05/29/20 L. acidophilus,casei,rhamnosus 50 1 cap PO DAILY #30 caps 04/25/21 billion cell capsule,delayed release (Bio-K plus) loperamide 2 mg capsule 2 mg PO QID PRN #120 caps 04/25/21 (Anti-Diarrheal (loperamide)) conjugated estrogens 0.625 mg/gram 0.625 mg vaginal DIRECTED #90 08/05/22 vaginal cream (Premarin) grams Allergies Allergy/AdvReac Type Severity Reaction Status Date / Time No Known Drug Allergies Allergy Unverified 12/18/22 19:57 Seasonal allergies Allergy Mild Itchy Uncoded 12/18/22 19:57 eyes,runny nose General Stated Complaint: Abd Prob LINUS: 3 Review of Systems Constitutional Constitutional: Denies chills, Denies fever(s) and Reports malaise Cardiovascular Cardiovascular: Denies chest pain and Denies dyspnea Respiratory Respiratory: Denies cough and Denies dyspnea Gastrointestinal Gastrointestinal: Reports as per HPI, Reports abdominal pain, Denies melena, Denies hematochezia, Denies change in bowel habits, Denies constipation, Denies diarrhea, Reports nausea and Denies vomiting Genitourinary Genitourinary: Denies hematuria, Denies urinary incontinence, Denies urinary hesitancy and Denies urinary urgency Integumentary/Breasts Skin/Breast: Denies rash PFSH All Active Problems (Updated 12/18/22 @ 23:06 by Nuno Staton NP) Abdominal pain (Acute) Diabetes (Chronic) Hypomagnesemia (Acute) Pyelonephritis (Acute) Visit for wound check (Acute) Fever (Acute) Wound cellulitis (Acute) Difficult airway for intubation (Acute) Skin tag (Acute 01/29/14) Postoperative urinary retention (Acute 03/15/18) Neoplasm of skin (Acute 01/29/14) Atypical squamous cells of undetermined significance (ASC-US) on cervical Pap smear (Acute 06/21/17) (-)HR HPV on 04/21/17 pap 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 coli UTI (urinary tract infection) (Acute) Medical History Arthralgia History of rectal cancer Hyperlipidemia Low back pain ISIAH (obstructive sleep apnea) PCOS (polycystic ovarian syndrome) Surgical procedures, elective (07/26/18) dr duckworth port placement (R) for rectal cancer therapy Vitamin D deficiency Surgical History Colonoscopy - MAC (07/27/17) invasive adenocarcinoma, rectum. Dilation and curettage H/O colonoscopy (07/15/18) dr duckworth, no abnormalities, repeat five years History of colon resection History of creation of ostomy Hysterectomy, Laproscopic Social History Smoking/Tobacco Use Status: Never Smoking risk assessment performed?: Yes Alcohol Intake: current Alcohol Intake frequency: holidays/special occasions only Drug use: Never Substance use type: does not use Do you feel safe in your relationship?: Yes Exam Const General: cooperative Orientation: alert, awake and oriented x3 Resp Effort & Inspection: normal respiratory effort and able to speak in complete sentences Auscultation: clear to auscultation bilaterally Cardio Rate: regular rate Rhythm: regular rhythm Heart Sounds: S1 normal and S2 normal GI Inspection: no abdominal wall ecchymosis, distended, visible herniation (surrounding colostomy site) and other (Ostomy bag in place with no surrounding erythema) Palpation: soft, not firm, no guarding, no pulsatile masses, not rigid, no splenomegaly and tender Auscultation: hypoactive bowel sounds Back/Spine/Pelvis Back: no CVA tenderness Neuro General: patient alert, patient awake, patient oriented x3, gait normal and moves all extremities Course Vital Signs Vital signs: Vital Signs Temperature 36.1 C L 12/18/22 19:53 Pulse 102 H 12/18/22 19:53 Respiratory Rate 16 12/18/22 19:53 Blood Pressure 164/108 H 12/18/22 19:53 Pulse Oximetry 96 12/18/22 19:53 Temperature 36.1 C L 12/18/22 19:53 Temperature Source Temporal Artery Scan 12/18/22 19:53 Pulse 102 H 12/18/22 19:53 Respiratory Rate 16 12/18/22 19:53 Respiratory Effort Normal 12/18/22 19:53 Blood Pressure 164/108 H 12/18/22 19:53 Blood Pressure Position Sitting 12/18/22 19:53 Pulse Oximetry 96 12/18/22 19:53 Oxygen Delivery Method Room Air 12/18/22 19:53 Oxygen Flow Rate 0 12/18/22 19:53 Pain Level 10 12/18/22 19:53 Lab/Test Results Lab/Test Results: Laboratory Tests Range/Units 12/18/22 20:13 WBC (4.4-10.8) 10^3/uL 8.55 RBC (3.93-5.22) 10^6/uL 5.45 H Hgb (11.2-15.7) g/dL 16.5 H Hct (36.0-46.0) % 47.9 H MCV (80-95) fL 88 MCH (27.0-33.0) pg 30.3 MCHC (32.0-36.0) % 34.4 RDW (11.7-14.6) % 12.1 Plt Count (130-400) 10^3/uL 341 MPV (8.0-11.0) fL 10.3 Immature Gran % 0.5 Neutrophils % 59.8 Lymphocytes % 26.4 Monocytes % 9.1 Eosinophils % 3.3 Basophils % 0.9 Nucleated RBC % (0.0-0.3) % 0.0 Absolute Neutrophils (1.2-6.7) 10^3/uL 5.11 Absolute Lymphocytes (1.2-3.4) 10^3/uL 2.26 Absolute Monocytes (0.1-0.8) 10^3/uL 0.78 Absolute Eosinophils (0.0-0.7) 10^3/uL 0.28 Absolute Basophils (0.0-0.2) 10^3/uL 0.08
[2022-12-18 20:36] LABS: ALT 40 U/L (14-59); AST 16 U/L (15-37); Albumin 4.1 g/dL (3.4-5.0); Alkaline Phosphatase 113 U/L (46-116); Anion Gap 8.8 mmol/L (3-11); BUN 20 mg/dL (7-18); Bilirubin, Total 0.4 mg/dL (0.2-1.0); CO2 27.2 mmol/L (21.0-32.0); Calcium 9.8 mg/dL (8.5-10.1); Chloride 100 mmol/L (98-107); Estimated GFR 62.52 (mL/min/1.73m2); Glucose 204 mg/dL (74-106); Lipase 21 U/L (16-77); Magnesium 1.6 mg/dL (1.8-2.4); Potassium 3.8 mmol/L (3.5-5.1); Sodium 136 mmol/L (136-145); Total Protein 7.7 g/dL (6.4-8.2)
[2022-12-18] MEDS: Ondansetron 4 MG/2 ML VIAL IVP (20:39)
[2022-12-18] MEDS: Magnesium Oxide 400 MG TAB PO (21:01)
[2022-12-18] MEDS: Normal Saline 500 ML IV (21:17)
[2022-12-18] MEDS: Normal Saline - Diluent 50 ML VIAL IJ (21:51)
[2022-12-18] MEDS: Omnipaque 350 MG/ML 100 ML BTL IJ (21:51)
[2022-12-18] MEDS: Normal Saline Flush 10 ML SYR IVP (21:52)
[2022-12-18 22:02] LABS: Bilirubin Negative (Negative); Blood Trace-lysed (Negative); Clarity Clear (Clear); Glucose Negative (Negative); Ketones Negative (Negative); Leukocyte Esterase Negative (Negative); Nitrite Negative (Negative); Specific Gravity 1.025 (1.005-1.025); Urobilinogen 0.2 mg/dL (Up to 0.2)
[2022-12-18 22:12] LABS: Bacteria Rare HPF (Negative); C & S Indicated? No; Casts Negative LPF (Negative); Crystals Negative HPF (Negative); Epithelial Cells Rare HPF (Negative); Mucus Negative (Negative); RBC 0-2 HPF (0-2); WBC 0-2 HPF (0-5)
--- NOTE | 2022-12-18 22:52 | DI.VRAD_ITS ---
PROCEDURE INFORMATION: Exam: CT Abdomen And Pelvis With Contrast Exam date and time: 12/18/2022 9:57 PM Age: 67 years old Clinical indication: Abdominal tenderness and other: Lower abd pain, starting 4 days ago; Prior surgery; Surgery date: 6+ months; Surgery type: Gallbladder, appendix, colostomy, hernia repair; Patient HX: Rectal cancer TECHNIQUE: Imaging protocol: Computed tomography of the abdomen and pelvis with contrast. Contrast material: OMNIPAQUE 350; Contrast volume: 100 ml; Contrast route: INTRAVENOUS (IV); COMPARISON: CT CHEST/ABD/PEL W 04/06/2022 11:04 AM FINDINGS: Lungs: Mild atelectasis in the lung bases. Mediastinal space: The visualized distal esophagus is largely contracted without gross abnormality. Liver: Liver dome partially excluded from the scan range. Question mild fatty infiltration of the liver. Mild hepatomegaly measuring approximately 20 cm craniocaudal. Normal contour. No mass lesions. No intrahepatic biliary ductal dilatation. Gallbladder and bile ducts: Prior cholecystectomy with no significant dilatation of the common bile duct. Pancreas: Moderate pancreatic atrophy without acute abnormality. No pancreatic ductal dilatation. Spleen: Mild splenomegaly measuring 14.8 cm. Adrenal glands: Normal. No adrenal mass. Kidneys and ureters: Mild bilateral symmetrical perinephric stranding, nonspecific. This is unchanged and may relate to chronic perirenal scarring. Mild left-sided pelvicaliectasis and ureterectasis. No urolithiasis. Mild ureteropelvic wall thickening and periureteral stranding with mild distal ureteral wall enhancement. This is suspicious for changes of UTI, correlate with UA. No urinary tract stones are identified. Small left renal cortical cysts which do not require further assessment. Stomach and bowel: The stomach is unremarkable. No acute small bowel abnormalities are identified. No bowel dilatation to suggest obstruction. Small bowel and cecum are again noted tracking into the posterior pelvic floor hernia off the lower edge of the scan range similar to 04/06/2022. Appendix: The appendix is normal in caliber and demonstrates no evidence of appendicitis. It has an atypical position in the pelvic floor hernia. Intraperitoneal space: No free fluid or air. Vasculature: No acute process. No abdominal aortic aneurysm. Lymph nodes: No adenopathy. Urinary bladder: Moderate urinary bladder wall thickening with slight adjacent stranding, possibly cystitis, correlate with UA. Reproductive: Unremarkable as visualized. Bones/joints: No acute osseous abnormalities. Soft tissues: Distal colectomy with left lower quadrant colostomy, with a large peristomal hernia containing herniated fat and a portion of transverse colon with no evidence of associated bowel obstruction or strangulation. Moderate stool in the distal colon, possibly an element of constipation. Mild wall thickening in the proximal colon could represent an mild component of colitis. Otherwise unremarkable. IMPRESSION: 1. Urinary bladder wall thickening and mild adjacent stranding suspicious for cystitis, with slight left-sided ureteropelvic wall thickening and distal ureteral wall enhancement, also concerning for changes of UTI. No evidence of pyelonephritis or abscess. Mild left pelvicaliectasis and ureterectasis. No urolithiasis. 2. Prior distal colectomy with left lower quadrant colostomy again noted, with large peristomal hernia containing herniated fat, transverse colon, and distal colon, unchanged from prior scan. 3. Large pelvic floor hernia which contains herniated fat, small bowel, and cecum, also unchanged. 4. Mild wall thickening in the proximal colon may be due to contracted status although can not exclude mild colitis. Moderate stool in the distal colon suggesting possible element of constipation. 5. Mild hepatomegaly and fatty infiltration of the liver. 6. Mild splenomegaly. 7. Additional nonemergent findings detailed above. Dictated and Authenticated by: Mingo Vanegas MD. Ordering:STEPHANIE Reina MD
== END 2022-12-18 23:20 | disposition home or self-care (01) ==
PROVIDERS: Emergency Provider Nurse Practitioner Family; PCP Nurse Practitioner Family
DX: R10.9 Unspecified abdominal pain (principal); M54.9 Dorsalgia, unspecified; E11.9 Type 2 diabetes mellitus without complications; R71.8 Other abnormality of red blood cells; E83.42 Hypomagnesemia; Z79.84 Long term (current) use of oral hypoglycemic drugs; Z79.4 Long term (current) use of insulin; Z93.3 Colostomy status; Z79.899 Other long term (current) drug therapy
CPT/HCPCS: 80053; 83690; 96361; 96365; 96375; 99285; 74177; 81003; 81015; 83735; 85025; 99284; J0131; J2405; J3490; Q9967

== ENCOUNTER → 2022-12-31 10:18 | Outpatient (BNVA) | payer MEDICARE, MEDICAID, SELFPAY | PROVIDERS: PCP Nurse Practitioner Family; Visit Provider Nurse Practitioner Gerontology | DX: R33.8 Other retention of urine (principal); N99.89 Other postprocedural complications and disorders of genitourinary system; Z87.440 Personal history of urinary (tract) infections | CPT/HCPCS: 81003; 99213 ==

== ENCOUNTER 2023-02-04 13:17 | Outpatient (REF) | payer MEDICAID, SELFPAY | END 2023-02-04 13:18 | disposition home or self-care (01) | LOC: NCHCN 13:17 | PROVIDERS: PCP Nurse Practitioner Family; Visit Provider Nurse Practitioner Family | DX: N39.0 Urinary tract infection, site not specified (principal) | CPT/HCPCS: 87077; 87086; 87186 ==

== ENCOUNTER 2023-03-29 14:03 | Outpatient (REF) | payer MEDICAID, SELFPAY ==
[2023-03-29 14:56] LABS: Bilirubin Negative (Negative); Blood Trace-intact (Negative); Clarity Cloudy (Clear); Glucose 500 mg/dL (Negative); Ketones Trace mg/dL (Negative); Leukocyte Esterase Small (Negative); Nitrite Positive (Negative); Urobilinogen 0.2 mg/dL (Up to 0.2); pH 5.5 (5-8)
[2023-03-29 15:16] LABS: Bacteria Many HPF (Negative); C & S Indicated? C&S Done As Ordered; Casts Negative LPF (Negative); Crystals Negative HPF (Negative); Epithelial Cells Negative HPF (Negative); Mucus Negative (Negative); Other Cells Negative (Negative); RBC 0-2 HPF (0-2); WBC 20-50 HPF (0-5)
== END 2023-03-29 14:04 | disposition home or self-care (01) ==
LOC: NCHCN 14:03
PROVIDERS: PCP Nurse Practitioner Family; Visit Provider Nurse Practitioner Gerontology
DX: N39.0 Urinary tract infection, site not specified (principal); B96.20 Unspecified Escherichia coli [E. coli] as the cause of diseases classified elsewhere
CPT/HCPCS: 87077; 81003; 81015; 87086; 87186

== ENCOUNTER 2023-10-11 14:58 | Outpatient (REF) | payer SELFPAY ==
[2023-10-11 20:12] LABS: HCT 44.9 % (36.0-46.0); HGB 15.4 g/dL (11.2-15.7); MCH 29.8 pg (27.0-33.0); MCHC 34.3 % (32.0-36.0); MCV 87 fL (80-95); MPV 11.4 fL (8.0-11.0); Platelet Count 250 10^3/uL (130-400); RBC 5.16 10^6/uL (3.93-5.22); RDW 11.5 % (11.7-14.6); RDW-SD 36.9 fL; WBC 5.12 10^3/uL (4.4-10.8)
[2023-10-11 20:22] LABS: ALT 24 U/L (14-59); AST 14 U/L (15-37); Albumin 3.3 g/dL (3.4-5.0); Alkaline Phosphatase 113 U/L (46-116); Anion Gap 12.7 mmol/L (3-11); BUN 19 mg/dL (7-18); Bilirubin, Total 0.3 mg/dL (0.2-1.0); CO2 22.3 mmol/L (21.0-32.0); CREATININE 0.9 mg/dL (0.55-1.02); Calcium 9.3 mg/dL (8.5-10.1); Chloride 101 mmol/L (98-107); Estimated GFR 70.51 (mL/min/1.73m2); Glucose 412 mg/dL (74-106); Sodium 136 mmol/L (136-145); Total Protein 7.4 g/dL (6.4-8.2)
[2023-10-11 20:39] LABS: Hemoglobin A1C 12.8 % (<5.7)
[2023-10-11 20:59] LABS: Vitamin D 25 Total 17.4 ng/mL (30-100)
== END 2023-10-11 14:59 | disposition home or self-care (01) ==
LOC: NCHCN 14:58
PROVIDERS: PCP Nurse Practitioner Family; Visit Provider Nurse Practitioner Family
DX: K76.0 Fatty (change of) liver, not elsewhere classified (principal); E11.9 Type 2 diabetes mellitus without complications; E55.9 Vitamin D deficiency, unspecified
CPT/HCPCS: 80053; 82306; 85027; 83036

== ENCOUNTER 2023-10-17 10:28 | Emergency (ER) | payer SELFPAY ==
[2023-10-17 10:35] VITALS: BP 130/98; PULSE 94; RESP 16; TEMP 36.1; O2SAT 96
--- NOTE | 2023-10-17 10:47 | W.ED.GENAD ---
HPI General Mode of arrival: ambulatory. Date/Time Provider Initiated Documentation: 10/17/23 10:29. Limitations to Documentation: no limitations. Information obtained by: patient. History of Present Illness 68 year old F presents to the emergency department with the chief complaint of High blood sugar, described as moderate, Patient started experiencing this day(s) (1) and it has been constant. No relieving factors improve symptom(s), No exacerbating factors reported . Patient notes denies chest pain and fever/chills. Patient did receive the following treatments prior to arrival, none Related Data Home Medications Medication Instructions Recorded Confirmed Zhanna 180 mg PO DAILY 04/20/14 12/31/22 metformin 1,000 mg tablet 1,000 mg PO BID #180 tab-caps 04/20/14 12/31/22 omeprazole 20 mg capsule,delayed 40 mg PO DAILY 04/20/14 12/31/22 release (Prilosec) spironolactone 25 mg tablet 50 mg PO BID 04/20/14 12/31/22 acetaminophen 325 mg tablet 975 mg PO Q6H PRN 10/03/18 12/31/22 ibuprofen 600 mg tablet 600 mg PO QID PRN 10/03/18 12/31/22 polyethylene glycol 3350 17 gram 17 g PO BID 10/03/18 12/31/22 oral powder packet (Miralax) catheter 14 Fr-6 #200 ea 05/29/20 12/31/22 insulin glargine 100 unit/mL 50 unit subcut QPM 05/29/20 12/31/22 subcutaneous solution (Lantus U-100 Insulin) allopurinol 100 mg tablet 100 mg PO DAILY 04/23/21 12/31/22 ergocalciferol (vitamin D2) 1,250 50,000 unit PO .WEEKLY 04/23/21 12/31/22 mcg (50,000 unit) capsule fluticasone propionate 50 1 spray intranasal PRN 04/23/21 12/31/22 mcg/actuation nasal spray,suspension L. acidophilus,casei,rhamnosus 50 1 cap PO DAILY #30 caps 04/25/21 12/31/22 billion cell capsule,delayed release (Bio-K plus) loperamide 2 mg capsule 2 mg PO QID PRN #120 caps 04/25/21 12/31/22 (Anti-Diarrheal (loperamide)) conjugated estrogens 0.625 mg/gram 0.625 mg vaginal DIRECTED #90 08/05/22 12/31/22 vaginal cream (Premarin) grams mesalamine 500 mg capsule,extended 1,000 mg PO DAILY 08/05/22 12/31/22 release atorvastatin 20 mg tablet (Lipitor) 20 mg PO DAILY 12/18/22 12/31/22 dulaglutide 1.5 mg/0.5 mL mg subcut 7XD 12/18/22 12/31/22 subcutaneous pen injector (Trulicity) losartan 25 mg tablet 25 mg PO DAILY 12/18/22 12/31/22 ciprofloxacin HCl 500 mg tablet 500 mg PO BID #14 tabs 03/30/23 ciprofloxacin HCl 500 mg tablet 500 mg PO BID #14 tabs 10/17/23 Previous Rx's Medication Instructions Recorded catheter 14 Fr-6 #200 ea 05/29/20 L. acidophilus,casei,rhamnosus 50 1 cap PO DAILY #30 caps 04/25/21 billion cell capsule,delayed release (Bio-K plus) loperamide 2 mg capsule 2 mg PO QID PRN #120 caps 04/25/21 (Anti-Diarrheal (loperamide)) conjugated estrogens 0.625 mg/gram 0.625 mg vaginal DIRECTED #90 08/05/22 vaginal cream (Premarin) grams ciprofloxacin HCl 500 mg tablet 500 mg PO BID #14 tabs 03/30/23 ciprofloxacin HCl 500 mg tablet 500 mg PO BID #14 tabs 10/17/23 Allergies Allergy/AdvReac Type Severity Reaction Status Date / Time No Known Drug Allergies Allergy Unverified 12/18/22 19:57 Seasonal allergies Allergy Mild Itchy Uncoded 12/18/22 19:57 eyes,runny nose General Stated Complaint: Diabetes LINUS: 3 Review of Systems All systems reviewed & are unremarkable except as noted in HPI and below Constitutional Constitutional: Denies chills and Denies fever(s) Cardiovascular Cardiovascular: Denies chest pain and Denies dyspnea Respiratory Respiratory: Denies cough and Denies dyspnea Gastrointestinal Gastrointestinal: Denies abdominal pain, Denies nausea and Denies vomiting Musculoskeletal Musculoskeletal: Denies joint swelling Integumentary/Breasts Skin/Breast: Denies rash Exam Const General: no acute distress Orientation: alert HENND Head: normal to inspection Ears: external ears normal General nose exam: external nose normal Mouth: moist mucous membranes Eyes General: appearance normal, both eyes and all related structures Neck Neck: normal visual inspection Resp Effort & Inspection: normal respiratory effort and able to speak in complete sentences Auscultation: clear to auscultation bilaterally Cardio Rate: regular rate Heart Sounds: no murmurs GI Palpation: soft and nontender Skin General skin exam: no rashes or lesions noted Neuro General: patient alert and patient oriented x3 Extrem General: normal to inspection Psych Mental Status: mental status grossly normal Course Vital Signs Vital signs: Vital Signs Temperature 36.1 C L 10/17/23 10:35 Pulse 94 H 10/17/23 10:35 Respiratory Rate 16 10/17/23 10:35 Blood Pressure 130/98 H 10/17/23 10:35 Pulse Oximetry 96 10/17/23 10:35 Temperature 36.1 C L 10/17/23 10:35 Temperature Source Temporal Artery Scan 10/17/23 10:35 Pulse 94 H 10/17/23 10:35 Respiratory Rate 16 10/17/23 10:35 Blood Pressure 130/98 H 10/17/23 10:35 Blood Pressure Position Sitting 10/17/23 10:35 Pulse Oximetry 96 10/17/23 10:35 Oxygen Delivery Method Room Air 10/17/23 10:35 Oxygen Flow Rate 0 10/17/23 10:35 Pain Level 6 10/17/23 10:35 Medical Decision Making 68-year-old female with a history of diabetes, chronic ostomy, who comes in with complaint that her blood sugar reading at home was over 500. She states she was off diabetes medicines for a long time due to insurance reasons. She started Lantus this past Wednesday, this morning is felt general weakness and dizziness so checked her blood sugar and it was over 500 so she came here. She does note 3 weeks ago she tested positive for COVID and her respiratory symptoms resolved, and then was treated for UTI with 3 days of Cipro for patient which she finished a couple days ago. She denies any fevers, severe abdominal pain, vomiting. She is alert and oriented x 4 on arrival with a normal gait no focal deficits. Suspect hypoglycemia as a cause of her symptoms, will check a VBG CBC CMP treat with IV fluids and reassess Patient without acidosis, labs relatively benign other than hyperglycemia. She is feeling better, does have a positive UA for likely urinary tract infection, does not have any fevers no back pain or CVA tenderness so doubt sepsis or pyelonephritis. Will start on ciprofloxacin based on past cultures with Klebsiella. She is stable for discharge, will follow-up with her primary care provider return precautions given Differential Diagnosis Differential Diagnosis: Hyperglycemia, DKA, electrolyte abnormality Medical Records Medical records reviewed: Yes I reviewed the patient's medical records. Lab Data Lab results reviewed: Yes I reviewed the patient's lab results. Quality:SDOH Health Related Social Needs: No Data to Display PFSH All Active Problems (Updated 10/17/23 @ 13:38 by Haris Morrell MD) Acute UTI (Acute) Hyperglycemia (Acute) Diabetes (Chronic) Hypomagnesemia (Acute) Pyelonephritis (Acute) Visit for wound check (Acute) Fever (Acute) Wound cellulitis (Acute) Difficult airway for intubation (Acute) Skin tag (Acute 01/29/14) Postoperative urinary retention (Acute 03/15/18) Neoplasm of skin (Acute 01/29/14) Atypical squamous cells of undetermined significance (ASC-US) on cervical Pap smear (Acute 06/21/17) (-)HR HPV on 04/21/17 pap 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 coli UTI (urinary tract infection) (Acute) Medical History Arthralgia History of rectal cancer Hyperlipidemia Low back pain ISIAH (obstructive sleep apnea) PCOS (polycystic ovarian syndrome) Surgical procedures, elective (07/26/18) dr duckworth port placement (R) for rectal cancer therapy Vitamin D deficiency Surgical History Colonoscopy - MAC (07/27/17) invasive adenocarcinoma, rectum. Dilation and curettage H/O colonoscopy (07/15/18) dr duckworth, no abnormalities, repeat five years History of colon resection History of creation of ostomy Hysterectomy, Laproscopic Social History Smoking/Tobacco Use Status: Never Smoking risk assessment performed?: Yes Alcohol Intake: current Alcohol Intake frequency: holidays/special occasions only Drug use: Never Substance use type: does not use Do you feel safe in your relationship?: Yes Discharge Plan Disposition Patient Disposition: Home Condition: Stable Discharge Details Clinical Impression: Hyperglycemia, Acute UTI Primary Care Provider: Татьяна Rothman ED Provider: Haris Morrell Home Meds and New Rx's Prescriptions: New ciprofloxacin HCl 500 mg tablet 500 mg PO BID Qty: 14 0RF Continued mesalamine 500 mg capsule, extended release 1,000 mg PO DAILY Premarin 0.625 mg/gram cream 0.625 mg vaginal DIRECTED Qty: 90 4RF Rx Instructions: apply a pea sized amount to the vaginal opening nightly x 14 days then decrease to 2 times a week insulin glargine [Lantus U-100 Insulin] 100 unit/mL solution 50 unit subcut QPM (DME) catheter 14-6 Fr- misc See Rx Instructions .ROUTE .MEDSUPPLY Qty: 200 11RF Rx Instructions: As directed ZHANNA 180 MG tablet 180 mg PO DAILY spironolactone 25 MG tablet 50 mg PO BID omeprazole [Prilosec] 20 MG capsule,delayed release(DR/EC) 40 mg PO DAILY metformin 1,000 MG tablet 1,000 mg PO BID Qty: 180 Rx Instructions: Take 1 tab PO every 12 hours ciprofloxacin HCl 500 mg tablet 500 mg PO BID Qty: 14 0RF Rx Instructions: For UTI allopurinol 100 mg tablet 100 mg PO DAILY Patient Comments: TAKE 1 TABLET BY MOUTH EVERY DAY ergocalciferol (vitamin D2) 1,250 mcg (50,000 unit) capsule 50,000 unit PO .WEEKLY fluticasone propionate 50 mcg/actuation spray,suspension 1 spray INTRANASAL PRN Patient Comments: SHAKE LIQUID AND USE 2 SPRAYS IN EACH NOSTRIL EVERY DAY NEEDED loperamide [Anti-Diarrheal (loperamide)] 2 mg capsule 2 mg PO QID PRNQty: 120 0RF Bio-K plus 50 billion cell capsule,delayed release(DR/EC) 1 cap PO DAILY Qty: 30 0RF atorvastatin [Lipitor] 20 mg tablet 20 mg PO DAILY Patient Comments: Take 1 tablet by mouth once a day Trulicity 1.5 mg/0.5 mL pen injector SUBCUT 7XD Patient Comments: INJECT 0.5ML SUBCUTANEOUSLY ONCE A WEEK losartan 25 mg tablet 25 mg PO DAILY Patient Comments: Take 1 tablet by mouth once a day [facility] – [place], [place] Endo acetaminophen 325 mg Tablet 975 mg PO Q6H PRN polyethylene glycol 3350 [Miralax] 17 gram Powder In Packet 17 g PO BID ibuprofen 600 mg Tablet 600 mg PO QID PRN Discharge Instructions Additional Instructions: Your blood work did not show any significant concerning findings other than your glucose was elevated, you have no signs of acidosis Follow-up with your primary care provider within 1 week Take the antibiotic as prescribed for your UTI Feel more ill, have severe worsening dizziness or new symptoms such as persistent vomiting return to the emergency department
[2023-10-17 10:51] LABS: Source Nasal/Nares
[2023-10-17 11:00] LABS: BE (Venous) 0 mmol/L (-2-3); HCO3 (Venous) 24 mmol/L (23-28); O2 Sat (Venous) 83 %; TCO2 (Venous) 21 mmol/L (24-29); pCO2 (Venous) 37 mmHg (41-51); pH (Venous) 7.42 (7.31-7.41); pO2 (Venous) 45 mmHg
[2023-10-17] MEDS: Normal Saline 1,000 ML 1000 ML IV (11:00)
[2023-10-17 11:04] LABS: Abs Immature Grans 0.03 10^3/uL (0.0-0.06); Absolute Basophil Count 0.06 10^3/uL (0.0-0.2); Absolute Eosinophil Count 0.24 10^3/uL (0.0-0.7); Absolute Lymphocyte Count 1.52 10^3/uL (1.2-3.4); Absolute Monocyte Count 0.67 10^3/uL (0.1-0.8); Basophils % 1.2; Eosinophils % 4.7; HCT 44.1 % (36.0-46.0); HGB 15.1 g/dL (11.2-15.7); Immature Grans % 0.6; Lymphocytes % 29.7; MCH 29.4 pg (27.0-33.0); MCHC 34.2 % (32.0-36.0); MCV 86 fL (80-95); MPV 9.5 fL (8.0-11.0); Monocytes % 13.1; Neutrophils % 50.7; Platelet Count 325 10^3/uL (130-400); RBC 5.13 10^6/uL (3.93-5.22); RDW 11.5 % (11.7-14.6); RDW-SD 36.2 fL; WBC 5.12 10^3/uL (4.4-10.8)
[2023-10-17 11:23] LABS: COVID-19 PCR Negative (Negative)
[2023-10-17 11:26] LABS: Magnesium 1.6 mg/dL (1.8-2.4)
[2023-10-17 12:32] LABS: Bilirubin Negative (Negative); Blood Small (Negative); Clarity Cloudy (Clear); Glucose >=1000 mg/dL (Negative); Ketones Trace mg/dL (Negative); Leukocyte Esterase Small (Negative); Nitrite Positive (Negative); Urobilinogen 0.2 mg/dL (Up to 0.2); pH 5.5 (5-8)
[2023-10-17 12:51] LABS: Bacteria Many HPF (Negative); C & S Indicated? Yes; Casts Negative LPF (Negative); Crystals Negative HPF (Negative); Epithelial Cells Rare HPF (Negative); Mucus Trace (Negative)
[2023-10-17 13:22] LABS: ALT 32 U/L (14-59); AST 16 U/L (15-37); Albumin 3.3 g/dL (3.4-5.0); Alkaline Phosphatase 129 U/L (46-116); Anion Gap 13.6 mmol/L (3-11); BUN 25 mg/dL (7-18); Bilirubin, Total 0.3 mg/dL (0.2-1.0); CO2 23.4 mmol/L (21.0-32.0); Chloride 100 mmol/L (98-107); Estimated GFR 62.13 (mL/min/1.73m2); Glucose 381 mg/dL (74-106); Sodium 137 mmol/L (136-145); Total Protein 7.4 g/dL (6.4-8.2)
[2023-10-17] MEDS: Ciprofloxacin 500 MG TAB PO (13:34)
--- NOTE | 2023-10-21 08:25 | W.ED.FU ---
Date of service: 10/21/23 Time of Service: 08:25 Follow Up Plan: Urine culture reviewed growing E. coli that is resistant to ciprofloxacin. I contacted the patient who notes she is feeling better. She has been seen by her PCP and antibiotic has been switched based on sensitivities. She has no additional concerns at this time.
== END 2023-10-17 14:02 | disposition home or self-care (01) ==
PROVIDERS: Emergency Provider Emergency Medicine; PCP Nurse Practitioner Family
DX: E11.65 Type 2 diabetes mellitus with hyperglycemia (principal); N39.0 Urinary tract infection, site not specified; E78.5 Hyperlipidemia, unspecified; Z79.4 Long term (current) use of insulin; Z79.84 Long term (current) use of oral hypoglycemic drugs; Z91.141 Patient's other noncompliance with medication regimen due to financial hardship
CPT/HCPCS: 80053; 82805; 82962; 87077; 87635; 96360; 99284; 81003; 81015; 83735; 84443; 85025; 87086; 87186; 99283

== ENCOUNTER 2023-11-08 17:31 | Outpatient (REF) | payer SELFPAY | END 2023-11-08 17:32 | disposition home or self-care (01) | LOC: NCHCN 17:31 | PROVIDERS: PCP Nurse Practitioner Family; Visit Provider Nurse Practitioner Family | DX: N39.0 Urinary tract infection, site not specified (principal) | CPT/HCPCS: 87077; 87086; 87186 ==

== ENCOUNTER 2024-01-20 13:49 | Emergency (ER) | payer SELFPAY ==
[2024-01-20] VITALS (30 sets, daily range): BP systolic 128–160; BP diastolic 54–103; PULSE 81–129; RESP 14–33; TEMP 36.3; O2SAT 90–98
--- NOTE | 2024-01-20 14:15 | RT.EKG_ITS ---
APPROVED REPORT Exam: Resting ECG Reason for Exam: sob Patient Location: E HR:101 bpm ECG Measurements Heart Rate 101 AXIS KS 143 P 36 QRSd 87 QRS -79 QT 351 T 30 QTc 456 Conclusion Sinus tachycardia...rate> 99 Probable left atrial enlargement...P >50mS, <-0.10mV V1 Anterolateral infarct, old...Q>40mS, abnrm ST-T, V3-V6,I,aVL Physician: no stemi
--- NOTE | 2024-01-20 14:45 | ED.GENADUL_ITS ---
Discharge Plan Disposition Patient Disposition: Home Condition: Good Discharge Details Clinical Impression: Urinary tract infection, Reactive airway disease, Hyperglycemia Primary Care Provider: Татьяна Rothman ED Provider: Baldo Shah Home Meds and New Rx's Prescriptions: New cephalexin 500 mg capsule 500 mg PO QID 7 Days Qty: 28 0RF prednisone 50 mg tablet 50 mg PO DAILY Qty: 5 0RF budesonide-formoterol [Symbicort] 160-4.5 mcg/actuation HFA aerosol inhaler 2 puff inhalation Q12H Qty: 10.2 0RF No Action mesalamine 500 mg capsule, extended release 1,000 mg PO DAILY Premarin 0.625 mg/gram cream 0.625 mg vaginal DIRECTED Qty: 90 4RF Rx Instructions: apply a pea sized amount to the vaginal opening nightly x 14 days then decrease to 2 times a week insulin glargine [Lantus U-100 Insulin] 100 unit/mL solution 50 unit subcut QPM (DME) catheter 14-6 Fr- misc See Rx Instructions .ROUTE .MEDSUPPLY Qty: 200 11RF Rx Instructions: As directed ZHANNA 180 MG tablet 180 mg PO DAILY spironolactone 25 MG tablet 50 mg PO BID omeprazole [Prilosec] 20 MG capsule,delayed release(DR/EC) 40 mg PO DAILY metformin 1,000 MG tablet 1,000 mg PO BID Qty: 180 Rx Instructions: Take 1 tab PO every 12 hours ciprofloxacin HCl 500 mg tablet 500 mg PO BID Qty: 14 0RF Rx Instructions: For UTI allopurinol 100 mg tablet 100 mg PO DAILY Patient Comments: TAKE 1 TABLET BY MOUTH EVERY DAY ergocalciferol (vitamin D2) 1,250 mcg (50,000 unit) capsule 50,000 unit PO .WEEKLY fluticasone propionate 50 mcg/actuation spray,suspension 1 spray INTRANASAL PRN Patient Comments: SHAKE LIQUID AND USE 2 SPRAYS IN EACH NOSTRIL EVERY DAY NEEDED loperamide [Anti-Diarrheal (loperamide)] 2 mg capsule 2 mg PO QID PRNQty: 120 0RF Bio-K plus 50 billion cell capsule,delayed release(DR/EC) 1 cap PO DAILY Qty: 30 0RF atorvastatin [Lipitor] 20 mg tablet 20 mg PO DAILY Patient Comments: Take 1 tablet by mouth once a day Trulicity 1.5 mg/0.5 mL pen injector SUBCUT 7XD Patient Comments: INJECT 0.5ML SUBCUTANEOUSLY ONCE A WEEK losartan 25 mg tablet 25 mg PO DAILY Patient Comments: Take 1 tablet by mouth once a day [facility] [place] [facility] acetaminophen 325 mg Tablet 975 mg PO Q6H PRN polyethylene glycol 3350 [Miralax] 17 gram Powder In Packet 17 g PO BID ibuprofen 600 mg Tablet 600 mg PO QID PRN ciprofloxacin HCl 500 mg tablet 500 mg PO BID Qty: 14 0RF Discharge Instructions Instructions: Urinary Tract Infection in Women (ED), Reactive Airways Disease (ED), Diabetic Hyperglycemia (ED) Additional Instructions: At this time your chest x-ray thankfully shows no evidence of pneumonia. You do have a urinary tract infection. Please start taking your medications for your sugars tomorrow. You do have reactive airway disease which is causing the shortness of breath. Please take the inhaler as prescribed. Please also take the steroids as prescribed. Please be mindful that this could cause her sugars to go slightly higher while on the steroids. If you notice any worsening of your symptoms, or any new symptoms such as vomiting, diarrhea, fever, chills, shortness of breath, chest pain, numbness, weakness, or fainting , please return immediately to the emergency department for reevaluation. Please follow up with your primary care provider as soon as possible for reassessment and reevaluation. As always, it was a pleasure participating in your medical care today. Referrals: Татьяна Rothman [Primary Care Provider] - [facility] General Date/Time Provider Initiated Documentation: 01/20/24 14:06 . [facility] Narrative: 68-year-old female with a past medical history of type 2 diabetes, not being currently medically managed secondary to a lack of insurance being able to afford her medications, history of reactive airway disease with home nebulizers, PCOS, obstructive sleep apnea, previous hysterectomy, who presents today for evaluation of cough and mild chest discomfort. Patient states that for the last month or 2 she has not been taking any of her insulin or diabetes meds secondary to lack of insurance. Her sugars have been higher than normal. All this is not her main concern she thought we should be aware. Then over the last 4 days she developed a mild upper respiratory infection with runny nose, cough, and congestion. This is worsened, and then yesterday she developed chest tightness which was improved with a nebulizer, but still remains mildly persistent. Currently she admits to mild tightness in the lower chest which feels similar to her previous asthma. She denies vomiting or diarrhea. She states that her insurance is now taking care of and she will most likely start her new medicatio n tomorrow afternoon. No history of heart disease or stroke. No history of PE. Related Data Home Medications Medication Instructions Recorded Confirmed Zhanna 180 mg PO DAILY 04/20/14 12/31/22 metformin 1,000 mg tablet 1,000 mg PO BID #180 tab-caps 04/20/14 12/31/22 omeprazole 20 mg capsule,delayed 40 mg PO DAILY 04/20/14 12/31/22 release (Prilosec) spironolactone 25 mg tablet 50 mg PO BID 04/20/14 12/31/22 acetaminophen 325 mg tablet 975 mg PO Q6H PRN 10/03/18 12/31/22 ibuprofen 600 mg tablet 600 mg PO QID PRN 10/03/18 12/31/22 polyethylene glycol 3350 17 gram 17 g PO BID 10/03/18 12/31/22 oral powder packet (Miralax) catheter 14 Fr-6 #200 ea 05/29/20 12/31/22 insulin glargine 100 unit/mL 50 unit subcut QPM 05/29/20 12/31/22 subcutaneous solution (Lantus U-100 Insulin) allopurinol 100 mg tablet 100 mg PO DAILY 04/23/21 12/31/22 ergocalciferol (vitamin D2) 1,250 50,000 unit PO .WEEKLY 04/23/21 12/31/22 mcg (50,000 unit) capsule fluticasone propionate 50 1 spray intranasal PRN 04/23/21 12/31/22 mcg/actuation nasal spray,suspension L. acidophilus,casei,rhamnosus 50 1 cap PO DAILY #30 caps 04/25/21 12/31/22 billion cell capsule,delayed release (Bio-K plus) loperamide 2 mg capsule 2 mg PO QID PRN #120 caps 04/25/21 12/31/22 (Anti-Diarrheal (loperamide)) conjugated estrogens 0.625 mg/gram 0.625 mg vaginal DIRECTED #90 08/05/22 12/31/22 vaginal cream (Premarin) grams mesalamine 500 mg capsule,extended 1,000 mg PO DAILY 08/05/22 12/31/22 release atorvastatin 20 mg tablet (Lipitor) 20 mg PO DAILY 12/18/22 12/31/22 dulaglutide 1.5 mg/0.5 mL mg subcut 7XD 12/18/22 12/31/22 subcutaneous pen injector (Trulicity) losartan 25 mg tablet 25 mg PO DAILY 12/18/22 12/31/22 ciprofloxacin HCl 500 mg tablet 500 mg PO BID #14 tabs 03/30/23 ciprofloxacin HCl 500 mg tablet 500 mg PO BID #14 tabs 10/17/23 budesonide-formoterol HFA 160 2 puff inhalation Q12H #10.2 grams 01/20/24 mcg-4.5 mcg/actuation aerosol inhaler (Symbicort) cephalexin 500 mg capsule 500 mg PO QID 7 days #28 caps 01/20/24 prednisone 50 mg tablet 50 mg PO DAILY #5 tabs 01/20/24 Previous Rx's Medication Instructions Recorded catheter 14 Fr-6 #200 ea 05/29/20 L. acidophilus,casei,rhamnosus 50 1 cap PO DAILY #30 caps 04/25/21 billion cell capsule,delayed release (Bio-K plus) loperamide 2 mg capsule 2 mg PO QID PRN #120 caps 04/25/21 (Anti-Diarrheal (loperamide)) conjugated estrogens 0.625 mg/gram 0.625 mg vaginal DIRECTED #90 08/05/22 vaginal cream (Premarin) grams ciprofloxacin HCl 500 mg tablet 500 mg PO BID #14 tabs 03/30/23 ciprofloxacin HCl 500 mg tablet 500 mg PO BID #14 tabs 10/17/23 budesonide-formoterol HFA 160 2 puff inhalation Q12H #10.2 grams 01/20/24 mcg-4.5 mcg/actuation aerosol inhaler (Symbicort) cephalexin 500 mg capsule 500 mg PO QID 7 days #28 caps 01/20/24 prednisone 50 mg tablet 50 mg PO DAILY #5 tabs 01/20/24 Allergies Allergy/AdvReac Type Severity Reaction Status Date / Time Seasonal allergies Allergy Mild Itchy Uncoded 01/20/24 13:55 eyes,runny nose General Stated Complaint: SOB LINUS: 3 Review of Systems All systems reviewed & are unremarkable except as noted in HPI and below Exam Narrative Exam Narrative: 1.Const: Well-nourished, Well-developed, appearing stated age 2.Eyes: PERRL, no conjunctival injection, and symmetrical lids. 3.ENT: Atraumatic external nose and ears. Dry MM. Neck: Symmetric, trachea midline, No thyromegaly. 4.CVS: +S1/S2, No murmurs or gallops. Peripheral pulses 2+ and equal in all extremities. Brisk capillary refill in all extremities. 5.RESP: Mild wheezes in the bases. Mild scattered crackles in the bases. 6.GI: Soft, Nontender/Nondistended, No hepatosplenomegaly. No guarding or rebound. 7.MSK: Normocephalic/Atraumatic, Extremities w/o deformity or ttp No cyanosis or clubbing, Normal movement of all extremities 8.Skin: Warm, Dry. No rashes or lesions. 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 Sensation grossly intact, no focal neurologic deficits. 10.Psych: (AAO) x3. Appropriate mood and affect Course Vital Signs Vital signs: Vital Signs Temperature 36.3 C L 01/20/24 13:52 Pulse 120 H 01/20/24 13:52 Respiratory Rate 18 01/20/24 13:52 Blood Pressure 160/92 H 01/20/24 13:52 Pulse Oximetry 93 01/20/24 13:52 Temperature 36.3 C L 01/20/24 13:52 Temperature Source Skin 01/20/24 13:52 Pulse 120 H 01/20/24 13:52 Respiratory Rate 18 01/20/24 13:52 Respiratory Effort Normal 01/20/24 13:54 Blood Pressure 160/92 H 01/20/24 13:52 Blood Pressure Position Sitting 01/20/24 13:52 Pulse Oximetry 93 01/20/24 13:52 Oxygen Delivery Method Room Air 01/20/24 13:52 Oxygen Flow Rate 0 01/20/24 13:52 Medical Decision Making 68-year-old female with a past medical history of type 2 diabetes, not being currently medically managed secondary to a lack of insurance being able to afford her medications, history of reactive airway disease with home nebulizers, PCOS, obstructive sleep apnea, previous hysterectomy, who presents today for evaluation of cough and mild chest discomfort. Patient states that for the last month or 2 she has not been taking any of her insulin or diabetes meds secondary to lack of insurance. Her sugars have been higher than normal. All this is not her main concern she thought we should be aware. Then over the last 4 days she developed a mild upper respiratory infection with runny nose, cough, and congestion. This is worsened, and then yesterday she developed chest tightness which was improved with a nebulizer, but still remains mildly persistent. Currently she admits to mild tightness in the lower chest which feels similar to her previous asthma. She denies vomiting or diarrhea. She states that her in surance is now taking care of and she will most likely start her new medication tomorrow afternoon. No history of heart disease or stroke. No history of PE. Physical exam demonstrates mild wheezes in the bases, minimal crackles. Oxygenation excellent. Mucous membranes slightly dry. Differential is highest for mild bronchitis versus pneumonia, mild COPD/reactive airway disease. Hyperglycemia certainly of concern as well. We will rehydrate, evaluate for sugar status, including A1c. Will get chest x-ray give breathing treatment with Xopenex, monitor closely and reassess. 4:43 PM Chest x-ray shows no evidence of pneumonia. Laboratory workup demonstrates no white count or bandemia. Electrolytes normal. Hemoglobin A1c is 10.9, current glucose is 471, patient was given subcu insulin 12 units for treatment of this. Troponin normal, proBNP normal. Urinalysis shows evidence of notable UTI. COVID flu and RSV negative. Patient feeling much better. Symptoms inconsistent with ACS. Chest pain is lasted over 24 hours, and troponin EKGs are benign. 2 g of ceftriaxone have been given for the patient's UTI. Will prescribe Keflex for home use. Will prescribe Symbicort for home inhaler, as well as prednisone burst for mild reactive airway exacerbation. Symptoms appearing consistent with PE. No evidence of hypoxemia. Patient otherwise stable. Patient will start her hyperglycemic medications tomorrow. Patient stable for discharge. Discussed red flags which to return. I have extensively reviewed the treatment plan and discharge instructions with the patient. I have addressed all patient concerns at this time. The patient was made aware of what symptoms to monitor for that would warrant a return to the emergency department. Discussed the plan with the patient, they demonstrate verbal understanding and agreement with our assessment and plan at this time. The documentation in this chart was dictated using [employer] dictation software. Please excuse any dictation errors. INDINGS: Exam limited by overlying monitoring leads and poor pulmonary inflation. LUNGS: Clear. Azygos lobe, normal variant. No pleural abnormality seen. HEART: Normal size. AORTA: Normal diameter. BONES: Unremarkable for age. Soft tissues: Unremarkable. IMPRESSION: No acute findings. Quality:SDOH Health Related Social Needs: No Data to Display PFSH All Active Problems (Updated 01/20/24 @ 16:46 by Baldo Shah DO) Hyperglycemia (Acute) Reactive airway disease (Acute) Urinary tract infection (Acute) Diabetes (Chronic) Hypomagnesemia (Acute) Pyelonephritis (Acute) Visit for wound check (Acute) Fever (Acute) Wound cellulitis (Acute) Difficult airway for intubation (Acute) Skin tag (Acute 01/29/14) Postoperative urinary retention (Acute 03/15/18) Neoplasm of skin (Acute 01/29/14) Atypical squamous cells of undetermined significance (ASC-US) on cervical Pap smear (Acute 06/21/17) (-)HR HPV on 04/21/17 pap 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 coli UTI (urinary tract infection) (Acute) Medical History Arthralgia History of rectal cancer Hyperlipidemia Low back pain ISIAH (obstructive sleep apnea) PCOS (polycystic ovarian syndrome) Surgical procedures, elective (07/26/18) dr duckworth port placement (R) for rectal cancer therapy Vitamin D deficiency Surgical History Colonoscopy - MAC (07/27/17) invasive adenocarcinoma, rectum. Dilation and curettage H/O colonoscopy (07/15/18) dr duckworth, no abnormalities, repeat five years History of colon resection History of creation of ostomy Hysterectomy, Laproscopic Social History Smoking/Tobacco Use Status: Never Smoking risk assessment performed?: Yes Alcohol Intake: current Alcohol Intake frequency: holidays/special occasions only Drug use: Never Substance use type: does not use Do you feel safe in your relationship?: Yes
[2024-01-20 15:19] LABS: BE (Venous) -1 mmol/L (-2-3); HCO3 (Venous) 23 mmol/L (23-28); O2 Sat (Venous) 87 %; TCO2 (Venous) 20 mmol/L (24-29); pCO2 (Venous) 36 mmHg (41-51); pH (Venous) 7.42 (7.31-7.41); pO2 (Venous) 50 mmHg
[2024-01-20 15:20] LABS: Abs Immature Grans 0.02 10^3/uL (0.0-0.06); Absolute Basophil Count 0.05 10^3/uL (0.0-0.2); Absolute Lymphocyte Count 1.43 10^3/uL (1.2-3.4); Absolute Monocyte Count 0.78 10^3/uL (0.1-0.8); Absolute Neutrophil Count 4.15 10^3/uL (1.2-6.7); Basophils % 0.8 %; Eosinophils % 1.5 %; HCT 45.4 % (36.0-46.0); HGB 15.8 g/dL (11.2-15.7); Immature Grans % 0.3 %; Lymphocytes % 21.9 %; MCH 30.3 pg (27.0-33.0); MCHC 34.8 % (32.0-36.0); MCV 87 fL (80-95); MPV 10.7 fL (8.0-11.0); Monocytes % 11.9 %; Neutrophils % 63.6 %; Platelet Count 237 10^3/uL (130-400); RBC 5.22 10^6/uL (3.93-5.22); RDW 12.5 % (11.7-14.6); RDW-SD 39.5 fL; WBC 6.53 10^3/uL (4.4-10.8)
[2024-01-20 15:33] LABS: Hemoglobin A1C 10.9 % (<5.7)
[2024-01-20 15:44] LABS: Albumin 3.7 g/dL (3.4-5.0); Alkaline Phosphatase 112 U/L (46-116); Anion Gap 13.7 mmol/L (3-11); BUN 24 mg/dL (7-18); Bilirubin, Total 0.5 mg/dL (0.2-1.0); CO2 23.3 mmol/L (21.0-32.0); CREATININE 1.5 mg/dL (0.55-1.02); Calcium 8.8 mg/dL (8.5-10.1); Chloride 100 mmol/L (98-107); Glucose 471 mg/dL (74-106); NT-proBNP 42 pg/mL (<300); Sodium 137 mmol/L (136-145); Total Protein 7.3 g/dL (6.4-8.2); Troponin I < 50 ng/L (< or =60)
[2024-01-20 15:46] LABS: Bilirubin Negative (Negative); Blood Trace-intact (Negative); Clarity Sl Cloudy (Clear); Glucose >=1000 mg/dL (Negative); Ketones 15 mg/dL (Negative); Leukocyte Esterase Small (Negative); Nitrite Positive (Negative); Specific Gravity 1.015 (1.005-1.025); Urobilinogen 0.2 mg/dL (Up to 0.2)
--- NOTE | 2024-01-20 15:47 | DI.RAD_ITS ---
Exam(s) XR PORTABLE CHEST AP EXAM: XR PORTABLE CHEST AP CLINICAL HISTORY: cough, eval for pneumonia TECHNIQUE: 2D digital imaging was performed. COMPARISON: CT CT CHEST/ABD/PEL W from 04/06/2022 FINDINGS: Exam limited by overlying monitoring leads and poor pulmonary inflation. LUNGS: Clear. Azygos lobe, normal variant. No pleural abnormality seen. HEART: Normal size. AORTA: Normal diameter. BONES: Unremarkable for age. Soft tissues: Unremarkable. IMPRESSION: No acute findings. DATA REPOSITORY: RADIATION DOSE DELIVERED:
[2024-01-20 16:00] LABS: C & S Indicated? Yes; WBC >50 HPF (0-5)
[2024-01-20 16:02] LABS: COVID-19 PCR Negative (Negative); Influenza A PCR Negative (Negative); Influenza B PCR Negative (Negative); RSV PCR Negative (Negative)
[2024-01-20 16:03] LABS: Source Nasopharynx
[2024-01-20 16:14] LABS: ALT 9 U/L (14-59); AST 8 U/L (15-37)
[2024-01-20] MEDS: Levalbuterol 1.25 MG/3 ML UPD VIAL UPD (16:22)
[2024-01-20] MEDS: Normal Saline 1,000 ML 1000 ML IV (16:26)
[2024-01-20] MEDS: cefTRIAXone 2 GM/50 ML BAG IVPB (17:00)
[2024-01-20] MEDS: Insulin REGULAR-Human 100 UNITS/ML UNIT 12 UNITS SC (17:08)
== END 2024-01-20 17:39 | disposition home or self-care (01) ==
PROVIDERS: Emergency Provider Student in an Organized Health Care Education/Training Program; PCP Nurse Practitioner Family
DX: R05.1 Acute cough; R73.9 Hyperglycemia, unspecified; J45.909 Unspecified asthma, uncomplicated; R06.02 Shortness of breath; N39.0 Urinary tract infection, site not specified; E11.9 Type 2 diabetes mellitus without complications; Z91.190 Patient's noncompliance with other medical treatment and regimen due to financial hardship
CPT/HCPCS: 80053; 82805; 87077; 87637; 93005; 94640; 96365; 99284; 71045; 81003; 81015; 83036; 83880; 84484; 85025; 87086; 87186; 93010; 99283; J0696; J1815; J7614

== ENCOUNTER 2024-04-12 19:31 | Outpatient (REF) | payer SELFPAY | END 2024-04-12 19:32 | disposition home or self-care (01) | LOC: NCHCN 19:31 | PROVIDERS: PCP Family Medicine; Visit Provider Physician Assistant Medical | DX: N39.0 Urinary tract infection, site not specified (principal) | CPT/HCPCS: 87077; 87086; 87186 ==

== ENCOUNTER 2024-05-09 19:14 | Outpatient (REF) | payer MEDICARE, SELFPAY | END 2024-05-09 19:15 | disposition home or self-care (01) | LOC: NCHCN 19:14 | PROVIDERS: PCP Family Medicine; Visit Provider Family Medicine | DX: N39.0 Urinary tract infection, site not specified (principal) | CPT/HCPCS: 87086 ==

== ENCOUNTER 2024-05-24 21:15 | Outpatient (REF) | payer MEDICARE, SELFPAY ==
[2024-05-24 23:43] LABS: Bacteria Many HPF (Negative); Casts Negative LPF (Negative); Crystals Negative HPF (Negative); Epithelial Cells Rare HPF (Negative); Mucus Negative (Negative); RBC 0-2 HPF (0-2); WBC >50 HPF (0-5)
[2024-05-24 23:44] LABS: C & S Indicated? C&S Done As Ordered
== END 2024-05-24 21:16 | disposition home or self-care (01) ==
LOC: LBN 21:15
PROVIDERS: PCP Family Medicine; Visit Provider Physician Assistant Medical
DX: R32 Unspecified urinary incontinence (principal)
CPT/HCPCS: 87077; 81015; 87086; 87186

== ENCOUNTER 2024-06-06 17:26 | Outpatient (REF) | payer SELFPAY | END 2024-06-06 17:27 | disposition home or self-care (01) | LOC: LBN 17:26 | PROVIDERS: PCP Family Medicine; Visit Provider Nurse Practitioner Family | DX: N30.00 Acute cystitis without hematuria (principal) | CPT/HCPCS: 87077; 87086; 87186 ==

== ENCOUNTER 2024-07-05 11:03 | Emergency (ER) | payer MEDICARE, SELFPAY ==
[2024-07-05 11:14] VITALS: BP 133/82; PULSE 99; RESP 12; TEMP 36.9; O2SAT 92
--- NOTE | 2024-07-05 11:17 | ED.GENADUL_ITS ---
Discharge Plan Disposition Patient Disposition: Home Condition: Good Discharge Details Clinical Impression: Acute UTI, Uncontrolled diabetes mellitus with hyperglycemia Primary Care Provider: Medina Montero V ED Provider: Agatha Ferguson Home Meds and New Rx's Prescriptions: New nitrofurantoin monohyd/m-cryst [Macrobid] 100 mg capsule 100 mg PO BID Qty: 14 0RF Rx Instructions: must administer with a meal/food Continued Premarin 0.625 mg/gram cream 0.625 mg vaginal DIRECTED Qty: 90 4RF Rx Instructions: apply a pea sized amount to the vaginal opening nightly x 14 days then decrease to 2 times a week insulin glargine [Lantus U-100 Insulin] 100 unit/mL solution 50 unit subcut QPM (DME) catheter 14-6 Fr- misc See Rx Instructions .ROUTE .MEDSUPPLY Qty: 200 11RF Rx Instructions: As directed ZHANNA 180 MG tablet 180 mg PO DAILY spironolactone 25 MG tablet 50 mg PO BID omeprazole [Prilosec] 20 MG capsule,delayed release(DR/EC) 40 mg PO DAILY metformin 1,000 MG tablet 1,000 mg PO BID Qty: 180 Rx Instructions: Take 1 tab PO every 12 hours allopurinol 100 mg tablet 100 mg PO DAILY Patient Comments: TAKE 1 TABLET BY MOUTH EVERY DAY ergocalciferol (vitamin D2) 1,250 mcg (50,000 unit) capsule 50,000 unit PO .WEEKLY fluticasone propionate 50 mcg/actuation spray,suspension 1 spray INTRANASAL DAILY PRN Patient Comments: SHAKE LIQUID AND USE 2 SPRAYS IN EACH NOSTRIL EVERY DAY NEEDED atorvastatin [Lipitor] 20 mg tablet 20 mg PO DAILY Patient Comments: Take 1 tablet by mouth once a day Trulicity 1.5 mg/0.5 mL pen injector SUBCUT 7XD Patient Comments: INJECT 0.5ML SUBCUTANEOUSLY ONCE A WEEK losartan 25 mg tablet 25 mg PO DAILY Patient Comments: Take 1 tablet by mouth once a day [facility] Endo budesonide-formoterol [Symbicort] 160-4.5 mcg/actuation HFA aerosol inhaler 2 puff inhalation Q12H Qty: 10.2 0RF acetaminophen 325 mg Tablet 975 mg PO Q6H PRN polyethylene glycol 3350 [Miralax] 17 gram Powder In Packet 17 g PO BID ibuprofen 600 mg Tablet 600 mg PO QID PRN Discharge Instructions Instructions: Urinary Tract Infection, Adult ED, High Blood Sugar, Adult ED Additional Instructions: As we discussed, you does appear that you have a recurrent urinary tract infection. After speaking with your urologic provider, we have decided to change your antibiotic to Macrobid as this should cover your infection well as well as have fewer side effects. Please continue to encourage hydration and take the medications through completion even if symptoms improve. Please follow-up with your urology team as previously scheduled. In regard to your elevated glucose, this likely associated with you not being on your medications for the past month. I am relieved that you will be getting these tomorrow. I did reach out to your primary care office and have asked them to assist in medication management and finding alternatives for payment so that you do not continue to have times without the medications again. This elevated, uncontrolled glucose, is likely what is causing you to feel so poorly. If you develop fever/chills, back pain, inability stay hydrated, any other new/worsening symptoms please seek care urgently once again. Please follow up with primary care in the next week for reevaluation. Referrals: Medina Montero MD [Primary Care Provider] - Discharge Data Discharge Date/Time-TO BE ENTERED AT DEPARTURE: 07/05/24 14:31 HPI General Date/Time Provider Initiated Documentation: 07/05/24 11:12 . Limitations to Documentation: no limitations . Information obtained by: patient, RN notes reviewed and old records reviewed . History of Present Illness 69 year old F presents to the emergency department with the chief complaint of recurrent UTI, described as moderate and similar to prior episodes, Patient started experiencing this day(s) and it has been constant. No relieving factors improve symptom(s), No exacerbating factors reported . Patient notes cough (has had slight cough since recent URI a few weeks ago) and malaise; denies chest pain, diaphoresis, fever/chills, loss of appetite, nausea/vomiting, rash and shortness of breath. Patient did receive the following treatments prior to arrival, none Related Data Home Medications ?Medication ?Instructions ?Recorded ?Confirmed Zhanna 180 mg PO DAILY 04/20/14 07/05/24 metformin 1,000 mg tablet 1,000 mg PO BID #180 tab-caps 04/20/14 07/05/24 omeprazole 20 mg capsule,delayed 40 mg PO DAILY 04/20/14 07/05/24 release (Prilosec) spironolactone 25 mg tablet 50 mg PO BID 04/20/14 07/05/24 acetaminophen 325 mg tablet 975 mg PO Q6H PRN 10/03/18 07/05/24 ibuprofen 600 mg tablet 600 mg PO QID PRN 10/03/18 07/05/24 polyethylene glycol 3350 17 gram 17 g PO BID 10/03/18 07/05/24 oral powder packet (Miralax) catheter 14 Fr-6 #200 ea 05/29/20 07/05/24 insulin glargine 100 unit/mL 50 unit subcut QPM 05/29/20 07/05/24 subcutaneous solution (Lantus U-100 Insulin) allopurinol 100 mg tablet 100 mg PO DAILY 04/23/21 07/05/24 ergocalciferol (vitamin D2) 1,250 50,000 unit PO .WEEKLY 04/23/21 07/05/24 mcg (50,000 unit) capsule fluticasone propionate 50 1 spray intranasal DAILY PRN 04/23/21 07/05/24 mcg/actuation nasal spray,suspension conjugated estrogens 0.625 mg/gram 0.625 mg vaginal DIRECTED #90 08/05/22 07/05/24 vaginal cream (Premarin) grams atorvastatin 20 mg tablet (Lipitor) 20 mg PO DAILY 12/18/22 07/05/24 dulaglutide 1.5 mg/0.5 mL mg subcut 7XD 12/18/22 12/31/22 subcutaneous pen injector (Trulicity) losartan 25 mg tablet 25 mg PO DAILY 12/18/22 07/05/24 budesonide-formoterol HFA 160 2 puff inhalation Q12H #10.2 grams 01/20/24 07/05/24 mcg-4.5 mcg/actuation aerosol inhaler (Symbicort) nitrofurantoin 100 mg PO BID #14 caps 07/05/24 monohydrate/macrocrystals 100 mg capsule (Macrobid) Previous Rx's ?Medication ?Instructions ?Recorded catheter 14 Fr-6 #200 ea 05/29/20 conjugated estrogens 0.625 mg/gram 0.625 mg vaginal DIRECTED #90 08/05/22 vaginal cream (Premarin) grams budesonide-formoterol HFA 160 2 puff inhalation Q12H #10.2 grams 01/20/24 mcg-4.5 mcg/actuation aerosol inhaler (Symbicort) nitrofurantoin 100 mg PO BID #14 caps 07/05/24 monohydrate/macrocrystals 100 mg capsule (Macrobid) Allergies Allergy/AdvReac Type Severity Reaction Status Date / Time Seasonal allergies Allergy Mild Itchy Uncoded 07/05/24 11:17 eyes,runny nose General Stated Complaint: Urinary LINUS: 3 Review of Systems Constitutional Constitutional: Reports as per HPI, Denies chills, Denies fever(s) and Denies poor appetite Cardiovascular Cardiovascular: Denies chest pain Respiratory Respiratory: Denies cough Gastrointestinal Gastrointestinal: Denies abdominal pain, Denies change in bowel habits, Denies nausea and Denies vomiting Genitourinary Genitourinary: Reports as per HPI Musculoskeletal Musculoskeletal: Reports as per HPI and Denies back pain Integumentary/Breasts Skin/Breast: Reports as per HPI and Denies rash Exam Const General: cooperative, healthy appearing, comfortable, no acute distress, well developed and well groomed Nutritional Appearance: well nourished and overweight Orientation: alert and awake Resp Effort & Inspection: normal respiratory effort and no respiratory distress Auscultation: clear to auscultation bilaterally, no rales, no rhonchi and no wheezes Cardio Rate: regular rate Rhythm: regular rhythm Heart Sounds: S1 normal and S2 normal GI Inspection: distended, obesity, scar and other (ostomy) Palpation: soft, no hepatosplenomegaly, not firm, no guarding, hernia (large, soft, incisional hernia), not rigid and nontender Back/Spine/Pelvis Back: no CVA tenderness Skin General skin exam: no rashes or lesions noted Trauma: no lacerations or abrasions Neuro General: patient alert and patient awake Cognition: normal cognition Speech: speech normal Gait: normal gait Course Vital Signs Vital signs: Vital Signs Temperature 36.9 C 07/05/24 11:14 Pulse 99 H 07/05/24 11:14 Respiratory Rate 12 07/05/24 11:14 Blood Pressure 133/82 07/05/24 11:14 Pulse Oximetry 92 07/05/24 11:14 Temperature 36.9 C 07/05/24 11:14 Temperature Source Oral 07/05/24 11:14 Pulse 99 H 07/05/24 11:14 Respiratory Rate 12 07/05/24 11:14 Blood Pressure 133/82 07/05/24 11:14 Blood Pressure Position Sitting 07/05/24 11:14 Pulse Oximetry 92 07/05/24 11:14 Oxygen Delivery Method Room Air 07/05/24 11:14 Oxygen Flow Rate 0 07/05/24 11:14 Pain Level 0 07/05/24 11:14 Medical Decision Making Patient is a pleasant 69-year-old female with past medical history significant for poorly controlled diabetes, urinary incontinence requiring self cath, colorectal cancer status postresection, presenting with chief complaint of a UTI. She reports that she has she has had several in the past, followed by urology. She reports that she typically uses ciprofloxacin when she does have a recurrent UTI. She denies any fevers or chills. States that she is just generally been feeling unwell but also attributes this to not taking her insulin for the past month as she was having some issues with her insurance. However, she does report the insurance that should come through tomorrow and be able to get the medication. She is concerned about finances overall however and continued access to the medications until she can have a more permanent fix which is likely to happen in September. She denies any fevers or chills. She has not had any abdominal pain. No flank pain. She states that she has difficulty with initiating urination, hence why she self caths, however she oth erwise can have the same symptoms of a UTI which she has had for about the past week. Patient also reports that she did have a upper respiratory infection which has since been clearing although she does report some mild lingering cough. Patient denies any shortness of breath or chest pain. On exam, patient appears chronically unwell, Overweight, large hernias associated with no changes per patient. No CVA tenderness. Abdomen is nontender with palpation. Ostomy appears to be draining well. Lungs are clear, normal cardiac exam. Primarily concerned at this time for urinary tract infection. Patient does not appear septic, no pyelonephritis unlikely to be bacteremic. However, she does appear chronically ill and has poorly controlled diabetes with a fingerstick glucose in the 500s which does appear to be fairly baseline for the patient. I did consider DKA in the setting of an acute infection. Will obtain labs to evaluate further. Discussed this plan with the patient is in agreement. She is able to hydrate orally so we will hold off on any IV fluids at this time. Patient is not endorsing any chest pain, shortness of breath or other ACS equivalents. Labs reviewed. No leukocytosis. Stable H&H. Her VBG shows a pH of 7.42. No evidence of DKA at this time. Her CMP shows a slightly low sodium which corrects to normal based on glucose. Creatinine 1.2 which appears to be baseline for the patient. Glucose 506. A1c 11.3. Urinalysis concerning for infection. Spoke with Laura Ovalle with urology who typically follows the patient. We discussed recurrent UTI. The patient had initially reported that she typically use ciprofloxacin. Laura advised that her most recent UTI was actually resistant to this and she recommended Macrobid. I also encouraged the patient to follow-up with primary care to get back on her insulin once again. I did call her primary care to discuss the concerns associated with this medication. First dose of antibiotics was given here. We discussed supportive care and strict return precautions. Advise close follow-up with primary care. I did call primary care office spoke with career technical counselor and attempt to expedite patient's access to her medications more reasonable jones. Patient I did discuss a dose of insulin here today. However, as this appears to be more of her baseline based on historical data as well as uptrending A1c, this is unlikely to have any lasting benefit until she is able to actually get her medications. She will continue with her metformin. She feels that she is going to be able to get the Lantus tomorrow and again, primary care has been tied into this issue as has their care management team. Strict turn precautions were discussed. She will take the Macrobid as was recommended by urology. She will also follow-up with her urologist here. All of her questions and concerns were addressed and patient is in agreement this plan. Patient able to hydrate here and will continue to increase her hydration at home. This documentation was generated using [employer] system, please disregard any oddities of phrase or misspellings. Quality:SDOH Health Related Social Needs: No Data to Display PFSH All Active Problems (Updated 07/05/24 @ 14:01 by JOSE ALFREDO Spring) Uncontrolled diabetes mellitus with hyperglycemia (Acute) Acute UTI (Acute) Diabetes (Chronic) Hypomagnesemia (Acute) Pyelonephritis (Acute) Visit for wound check (Acute) Fever (Acute) Wound cellulitis (Acute) Difficult airway for intubation (Acute) Skin tag (Acute 01/29/14) Postoperative urinary retention (Acute 03/15/18) Neoplasm of skin (Acute 01/29/14) Atypical squamous cells of undetermined significance (ASC-US) on cervical Pap smear (Acute 06/21/17) (-)HR HPV on 04/21/17 pap 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 coli UTI (urinary tract infection) (Acute) Medical History Arthralgia History of rectal cancer Hyperlipidemia Low back pain ISIAH (obstructive sleep apnea) PCOS (polycystic ovarian syndrome) Surgical procedures, elective (07/26/18) dr duckworth port placement (R) for rectal cancer therapy Vitamin D deficiency Surgical History Colonoscopy - MAC (07/27/17) invasive adenocarcinoma, rectum. Dilation and curettage H/O colonoscopy (07/15/18) dr duckworth, no abnormalities, repeat five years History of colon resection History of creation of ostomy Hysterectomy, Laproscopic Social History Smoking/Tobacco Use Status: Never Smoking risk assessment performed?: Yes Alcohol Intake: current Alcohol Intake frequency: holidays/special occasions only Drug use: Never Substance use type: does not use Housing: apartment Do you feel safe in your relationship?: Yes
[2024-07-05 11:25] VITALS: BP 135/80; PULSE 97; RESP 14; TEMP 36.8; O2SAT 100
[2024-07-05 12:09] LABS: Bilirubin Negative (Negative); Blood Trace-lysed (Negative); Clarity Sl Cloudy (Clear); Glucose >=1000 mg/dL (Negative); Ketones 15 mg/dL (Negative); Leukocyte Esterase Trace (Negative); Nitrite Negative (Negative); Urobilinogen 0.2 mg/dL (Up to 0.2)
--- NOTE | 2024-07-05 12:15 | DI.RAD_ITS ---
Exam(s) XR CHEST 2V PA LATERAL EXAM: XR CHEST 2V PA LATERAL CLINICAL HISTORY: cough TECHNIQUE: 2D digital imaging was performed of the chest. Two images were obtained. PA and lateral views were obtained. COMPARISON: CR,XR XR CHEST 2V PA LATERAL from 04/23/2021 CR XR PORTABLE CHEST AP from 01/20/2024 FINDINGS: MEDIASTINUM: Normal. HEART: Normal. PULMONARY VASCULATURE: Normal. LUNGS: Clear. PLEURAL SPACE: No pleural effusion or pneumothorax. BONE:Within normal limits for the patient's age. OTHER FINDINGS:Normal. IMPRESSION: No acute pulmonary findings. DATA REPOSITORY: RADIATION DOSE DELIVERED:
[2024-07-05 12:31] LABS: Bacteria Many HPF (Negative); C & S Indicated? No/Sq. Contamination; Casts 0-2 Coarse Granular LPF (Negative); Epithelial Cells Moderate HPF (Negative); WBC >50 HPF (0-5)
[2024-07-05 12:50] LABS: BE (Venous) 2 mmol/L (-2-3); HCO3 (Venous) 26 mmol/L (23-28); O2 Sat (Venous) 71 %; TCO2 (Venous) 23 mmol/L (24-29); pCO2 (Venous) 41 mmHg (41-51); pH (Venous) 7.42 (7.31-7.41); pO2 (Venous) 34 mmHg
[2024-07-05 12:51] LABS: Abs Immature Grans 0.07 10^3/uL (0.0-0.06); Absolute Basophil Count 0.05 10^3/uL (0.0-0.2); Absolute Eosinophil Count 0.03 10^3/uL (0.0-0.7); Absolute Monocyte Count 1.06 10^3/uL (0.1-0.8); Absolute Neutrophil Count 3.74 10^3/uL (1.2-6.7); Basophils % 0.8 %; Eosinophils % 0.5 %; HCT 41.2 % (36.0-46.0); HGB 14.1 g/dL (11.2-15.7); Immature Grans % 1.2 %; Lymphocytes % 16.8 %; MCH 29.6 pg (27.0-33.0); MCHC 34.2 % (32.0-36.0); MCV 86 fL (80-95); MPV 9.8 fL (8.0-11.0); Monocytes % 17.8 %; Neutrophils % 62.9 %; Platelet Count 237 10^3/uL (130-400); RBC 4.77 10^6/uL (3.93-5.22); RDW 12.2 % (11.7-14.6); RDW-SD 38.8 fL; WBC 5.95 10^3/uL (4.4-10.8)
[2024-07-05 13:10] LABS: ALT 20 U/L (14-59); AST 12 U/L (15-37); Albumin 2.8 g/dL (3.4-5.0); Alkaline Phosphatase 100 U/L (46-116); Anion Gap 10.2 mmol/L (3-11); BUN 17 mg/dL (7-18); Bilirubin, Total 0.63 mg/dL (0.2-1.0); CO2 25.8 mmol/L (21.0-32.0); CREATININE 1.2 mg/dL (0.55-1.02); Chloride 99 mmol/L (98-107); Estimated GFR 49.61 (mL/min/1.73m2); Magnesium 1.8 mg/dL (1.8-2.4); Potassium 3.6 mmol/L (3.5-5.1); Sodium 135 mmol/L (136-145); Total Protein 7.2 g/dL (6.4-8.2); Troponin I 6 ng/L (<or=51)
[2024-07-05 13:12] LABS: Glucose 506 mg/dL (74-106)
[2024-07-05 13:17] LABS: Hemoglobin A1C 11.3 % (<5.7)
[2024-07-05] MEDS: MacroBID 100 MG CAP PO (13:30)
[2024-07-05 14:08] LABS: Crystals Negative HPF (Negative); Mucus Negative (Negative)
[2024-07-05 14:18] VITALS: BP 128/49; PULSE 99; RESP 16; TEMP 36.4; O2SAT 95
[2024-07-05 14:29] VITALS: BP 128/49; PULSE 99; RESP 16; TEMP 36.4; O2SAT 100
[2024-07-05 14:30] VITALS: BP 128/49; PULSE 99; RESP 16; TEMP 36.4; O2SAT 100
== END 2024-07-05 14:31 | disposition home or self-care (01) ==
PROVIDERS: Emergency Provider Physician Assistant; PCP Family Medicine
DX: R10.9 Unspecified abdominal pain (principal); N39.0 Urinary tract infection, site not specified; E11.65 Type 2 diabetes mellitus with hyperglycemia; E78.5 Hyperlipidemia, unspecified; Z79.4 Long term (current) use of insulin; Z79.84 Long term (current) use of oral hypoglycemic drugs; Z79.85 Long-term (current) use of injectable non-insulin antidiabetic drugs; Z93.3 Colostomy status
CPT/HCPCS: 80053; 82805; 82962; 99284; 71046; 81003; 81015; 83036; 83735; 84484; 85025; 99283

== ENCOUNTER → 2024-10-17 08:22 | Outpatient (BNVA) | payer MEDICARE, SELFPAY | PROVIDERS: PCP Family Medicine; Visit Provider Nurse Practitioner Gerontology | DX: N99.89 Other postprocedural complications and disorders of genitourinary system (principal); R33.8 Other retention of urine; Z87.440 Personal history of urinary (tract) infections | CPT/HCPCS: 99214 ==

== ENCOUNTER 2025-01-23 01:30 | Outpatient (CLI) | payer MEDICARE, SELFPAY ==
--- NOTE | 2025-01-23 | DI.CT_ITS ---
Exam(s) CT CHEST/ABD/PEL W EXAM: CT CHEST/ABD/PEL W CLINICAL HISTORY: Z85.048 H/O rectal CA,Restaging,S/P radiation resection chemotherapy. TECHNIQUE: Imaging Protocol: Axial computed tomography images with coronal and sagittal reformatted images were created and reviewed. Computer aided detection (CAD) was utilized. CONTRAST MATERIAL: Intravenous: Omnipaque 350 Contrast volume:100 ml Oral: yes [address] CHEST/ABD/PEL W from 04/05/[address] ABDOMEN PELVIS W from 10/29/2020 CR,XR XR CHEST 2V PA LATERAL from 04/23/[address] ABDOMEN PELVIS W from 04/23/[address] CHEST WO from 05/12/[address] CHEST/ABD/PEL W from 04/06/[address] ABDOMEN PELVIS W from 12/18/2022 FINDINGS: CHEST: Pulmonary parenchyma: No consolidation. No dominant measurable mass. Azygos lobe, anatomic variant . Tracheobronchial tree: No bronchiectasis. No mucous plugging.No bronchial wall thickening. Pleura: No effusion or pneumothorax. Mediastinum: Within normal limits. Pulmonary arteries: No visible emboli. Cardiovascular: Heart is normal size. Coronary artery calcifications are present. No pericardial ef fusion. Thoracic aorta non-dilated. Bones: Unremarkable for age. No lytic or blastic lesions.No compression fractures. Soft tissues: Unremarkable. ABDOMEN and PELVIS: Liver: Normal density. No suspicious mass. Gallbladder and biliary tract: Cholecystectomy. No biliary dilatation. Pancreas: Mildly atrophic. No abnormal calcifications or inflammatory process. Spleen: Normal. Kidneys: Normal size, contour and axis. No radiodense stones. No obstructive uropathy. No suspicious masses seen. Adrenal glands: No masses seen. Aorta: Abdominal portion non-dilated. Lymph nodes: Within normal limits. Soft tissues: Left mid to lower quadrant ostomy again noted with multiple loops of colon as well as m esentery. No evidence of obstruction. Large rectocele again noted containing loops of small bowel a s well as the cecum and mesentery. Extends inferior to the coccyx by 18 cm and measures 13 cm transv erse by 12 cm AP. Was not fully included on previous examinations. Bladder: Mild diffuse wall thickening. This appears improved from the prior exam. Bowel: No obstruction or bowel wall thickening. Peritoneal cavity: No ascites. No focal collection. No mesenteric inflammatory response. No free ai r. Bones: Unremarkable for age. Reproductive organs: Question of partial hysterectomy versus atrophic uterus. Right ovary is visible . Left ovary not definitely visualized. IMPRESSION: No evidence of metastatic disease in the chest, abdomen or pelvis. Stable appearance of large rectoc sri containing cecum and loops of small bowel. Stable appearance of left-sided ostomy with multiple loops of colon and mesentery herniating through the past parastomal hernia. No evidence of obstructi on at either site. RADIATION DOSE DELIVERED: Total DLP DATA REPOSITORY: All CT scans at this facility are submitted to the National Radiology Data Registry (NRDR) Dose Index Registry (DIR) with the [employer] (ACR). RADIATION OPTIMIZATION: All CT scans at this facility use at least one of these dose optimization te chniques: automated exposure control; mA and/or kV adjustment per patient size (includes targeted exa ms where dose is matched to clinical indication); or iterative reconstruction.
[2025-01-23] MEDS: Omnipaque 350 MG/ML 50 ML BTL PO (10:20)
[2025-01-23] MEDS: Breeza Beverage 473 ML BTL PO ×2 (10:20→10:21)
[2025-01-23 10:50] LABS: Abs Immature Grans 0.02 10^3/uL (0.0-0.06); Absolute Basophil Count 0.05 10^3/uL (0.0-0.2); Absolute Eosinophil Count 0.24 10^3/uL (0.0-0.7); Absolute Lymphocyte Count 1.69 10^3/uL (1.2-3.4); Absolute Monocyte Count 0.56 10^3/uL (0.1-0.8); Absolute Neutrophil Count 3.73 10^3/uL (1.2-6.7); Basophils % 0.8 %; Eosinophils % 3.8 %; HCT 45.2 % (36.0-46.0); HGB 15.4 g/dL (11.2-15.7); Immature Grans % 0.3 %; Lymphocytes % 26.9 %; MCHC 34.1 % (32.0-36.0); MCV 88 fL (80-95); MPV 9.8 fL (8.0-11.0); Monocytes % 8.9 %; Neutrophils % 59.3 %; Platelet Count 254 10^3/uL (130-400); RBC 5.13 10^6/uL (3.93-5.22); RDW 12.9 % (11.7-14.6); RDW-SD 41.7 fL; WBC 6.29 10^3/uL (4.4-10.8)
[2025-01-23 11:39] LABS: ALT 67 U/L (14-59); AST 26 U/L (15-37); Albumin 3.9 g/dL (3.4-5.0); Alkaline Phosphatase 117 U/L (46-116); Anion Gap 11.3 mmol/L (3-11); BUN 15 mg/dL (7-18); Bilirubin, Total 0.4 mg/dL (0.2-1.0); CO2 24.7 mmol/L (21.0-32.0); Calcium 9.4 mg/dL (8.5-10.1); Chloride 104 mmol/L (98-107); Estimated GFR 61.75 (mL/min/1.73m2); Glucose 152 mg/dL (74-106); Potassium 3.8 mmol/L (3.5-5.1); Sodium 140 mmol/L (136-145); Total Protein 7.4 g/dL (6.4-8.2)
[2025-01-23] MEDS: Omnipaque 350 MG/ML 100 ML BTL IJ (13:17)
[2025-01-23] MEDS: Normal Saline - Diluent 50 ML VIAL IJ (13:18)
[2025-01-23 19:58] LABS: CEA 4.6 ng/mL (See Note)
== END 2025-01-23 01:50 ==
LOC: DI 01:30
PROVIDERS: PCP Family Medicine; Visit Provider Internal Medicine Hematology & Oncology
DX: Z85.048 Personal history of other malignant neoplasm of rectum, rectosigmoid junction, and anus (principal); Z08 Encounter for follow-up examination after completed treatment for malignant neoplasm
CPT/HCPCS: 74177; 80053; 71260; 82378; 85025; J3490; Q9967

== ENCOUNTER → 2025-02-08 12:48 | Outpatient (BNVA) | payer MEDICARE, SELFPAY | PROVIDERS: PCP Family Medicine; Referring Provider Family Medicine; Visit Provider Podiatrist | DX: E11.42 Type 2 diabetes mellitus with diabetic polyneuropathy (principal); M79.671 Pain in right foot; M79.672 Pain in left foot; I73.89 Other specified peripheral vascular diseases; I89.0 Lymphedema, not elsewhere classified; R09.89 Other specified symptoms and signs involving the circulatory and respiratory systems; L65.9 Nonscarring hair loss, unspecified | CPT/HCPCS: 99214; 11719 ==

== ENCOUNTER → 2025-04-18 08:24 | Outpatient (BNVA) | payer MEDICARE, SELFPAY | PROVIDERS: PCP Family Medicine; Visit Provider Nurse Practitioner Gerontology | DX: N99.89 Other postprocedural complications and disorders of genitourinary system (principal); R33.8 Other retention of urine | CPT/HCPCS: 99213; 81002 ==

== ENCOUNTER 2025-04-23 09:39 | Emergency (ER) | payer MEDICARE, SELFPAY ==
[2025-04-23] VITALS (34 sets, daily range): BP systolic 115–149; BP diastolic 52–90; PULSE 64–106; RESP 8–21; TEMP 37.1; O2SAT 92–98
--- NOTE | 2025-04-23 09:45 | RT.EKG_ITS ---
APPROVED REPORT Exam: Resting ECG Reason for Exam: sob Patient Location: E HR:102 bpm ECG Measurements Heart Rate 102 AXIS ND 150 P 14 QRSd 87 QRS -81 QT 335 T 65 QTc 437 Conclusion Sinus tachycardia...rate> 99 Inferior infarct, old...Q >35mS, II III aVF Consider anterior infarct...Q >30mS in V2-V5 No Occlusion PA
[2025-04-23 10:41] LABS: Abs Immature Grans 0.02 10^3/uL (0.0-0.06); HCT 44.5 % (36.0-46.0); HGB 15.3 g/dL (11.2-15.7); Immature Grans % 0.3 %; MCH 30.1 pg (27.0-33.0); MCHC 34.4 % (32.0-36.0); MCV 87 fL (80-95); MPV 9.9 fL (8.0-11.0); Platelet Count 227 10^3/uL (130-400); RBC 5.09 10^6/uL (3.93-5.22); RDW 12.4 % (11.7-14.6); RDW-SD 39.8 fL; WBC 6.72 10^3/uL (4.4-10.8)
--- NOTE | 2025-04-23 10:48 | W.ED.GENAD ---
Discharge Plan Disposition Patient Disposition: Home Condition: Stable Discharge Details Clinical Impression: Fatigue, Hyperglycemia Primary Care Provider: Medina Montero V ED Provider: Sanchez Roth Home Meds and New Rx's Prescriptions: No Action Premarin 0.625 mg/gram cream 0.625 mg vaginal DIRECTED Qty: 90 4RF Rx Instructions: apply a pea sized amount to the vaginal opening nightly x 14 days then decrease to 2 times a week aspirin 81 mg tablet,delayed release (DR/EC) 81 mg PO DAILY Ozempic 0.25 mg or 0.5 mg (2 mg/3 mL) pen injector 0.25 mg subcut QWEEK Rx Instructions: for 4 weeks insulin glargine [Lantus U-100 Insulin] 100 unit/mL solution 50 unit subcut QPM (DME) catheter 14-6 Fr- misc See Rx Instructions .ROUTE .MEDSUPPLY Qty: 200 11RF Rx Instructions: As directed ZHANNA 180 MG tablet 180 mg PO DAILY spironolactone 25 MG tablet 50 mg PO BID omeprazole [Prilosec] 20 MG capsule,delayed release(DR/EC) 40 mg PO DAILY metformin 1,000 MG tablet 1,000 mg PO BID Qty: 180 Rx Instructions: Take 1 tab PO every 12 hours nitrofurantoin macrocrystal 100 mg capsule 100 mg PO DAILY Qty: 90 1RF Rx Instructions: must administer with a meal/food allopurinol 100 mg tablet 100 mg PO DAILY Patient Comments: TAKE 1 TABLET BY MOUTH EVERY DAY ergocalciferol (vitamin D2) 1,250 mcg (50,000 unit) capsule 50,000 unit PO .WEEKLY fluticasone propionate 50 mcg/actuation spray,suspension 1 spray INTRANASAL DAILY PRN Patient Comments: SHAKE LIQUID AND USE 2 SPRAYS IN EACH NOSTRIL EVERY DAY NEEDED atorvastatin [Lipitor] 20 mg tablet 20 mg PO DAILY Patient Comments: Take 1 tablet by mouth once a day losartan 25 mg tablet 25 mg PO DAILY Patient Comments: Take 1 tablet by mouth once a day [facility] acetaminophen 325 mg Tablet 975 mg PO Q6H PRN polyethylene glycol 3350 [Miralax] 17 gram Powder In Packet 17 g PO BID ibuprofen 600 mg Tablet 600 mg PO QID PRN Discharge Instructions Instructions: Blood Glucose Monitoring, Fatigue ED Additional Instructions: Incidental findings noted on your CT include mild coronary artery disease and minimal atherosclerotic calcification. Please be sure to discuss this with your primary care physician. Your blood glucose was elevated today at 230. Please be sure to monitor this closely and follow-up with your primary care physician. Adjustments may need to be made to your diabetic medication if hyperglycemia persist. Please follow-up with your primary care physician. Please drink plenty fluids to stay hydrated and allow for plenty of rest. Return to the emergency department immediately for any worsening or new concerning symptoms. Referrals: Medina Montero MD [Primary Care Provider, Medicine] Discharge Data Discharge Date/Time-TO BE ENTERED AT DEPARTURE: 04/23/25 14:59 HPI General Date/Time Provider Initiated Documentation: 04/23/25 09:57. Limitations to Documentation: no limitations. Information obtained by: patient. HPI Narrative: HISTORY OF PRESENT ILLNESS 63-year-old female with peripheral artery disease, lymphedema, diabetes, anxiety disorder, and colon cancer treated with chemotherapy and radiation presenting with shortness of breath and dizziness. Reports feeling unwell over the past week with extreme fatigue and mild coughing. Has seasonal allergies. Developed shortness of breath this morning, worsened by exertion. Experiences significant dizziness and weakness, especially when standing. Sleeping well. No fever or leg pain but has severe neuropathy in feet. No tick bites. No smoking or thyroid issues. Suspects symptoms may be related to UTI, frequently gets UTIs. Saw urology on 04/17/2025, urine test was clear. Advised to finish 7-day course of Macrobid. Preventative dose of Macrobid working well, but prescription mix-up led to infection. Has ostomy and large hernias. Suspected colitis a week ago due to several days of no stool followed by mucus, symptoms improved. Related Data Home Medications ?Medication ?Instructions ?Recorded ?Confirmed Zhanna 180 mg PO DAILY 04/20/14 04/23/25 metformin 1,000 mg tablet 1,000 mg PO BID #180 tab-caps 04/20/14 04/23/25 omeprazole 20 mg capsule,delayed 40 mg PO DAILY 04/20/14 04/23/25 release (Prilosec) spironolactone 25 mg tablet 50 mg PO BID 04/20/14 04/23/25 acetaminophen 325 mg tablet 975 mg PO Q6H PRN 10/03/18 04/23/25 ibuprofen 600 mg tablet 600 mg PO QID PRN 10/03/18 04/23/25 polyethylene glycol 3350 17 gram 17 g PO BID 10/03/18 04/23/25 oral powder packet (Miralax) catheter 14 Fr-6 #200 ea 05/29/20 04/23/25 insulin glargine 100 unit/mL 50 unit subcut QPM 05/29/20 04/23/25 subcutaneous solution (Lantus U-100 Insulin) allopurinol 100 mg tablet 100 mg PO DAILY 04/23/21 04/23/25 ergocalciferol (vitamin D2) 1,250 50,000 unit PO .WEEKLY 04/23/21 04/23/25 mcg (50,000 unit) capsule fluticasone propionate 50 1 spray intranasal DAILY PRN 04/23/21 04/23/25 mcg/actuation nasal spray,suspension atorvastatin 20 mg tablet (Lipitor) 20 mg PO DAILY 12/18/22 04/23/25 losartan 25 mg tablet 25 mg PO DAILY 12/18/22 04/23/25 aspirin 81 mg tablet,delayed 81 mg PO DAILY 01/29/25 04/23/25 release semaglutide 0.25 mg or 0.5 mg (2 0.25 mg subcut QWEEK 02/08/25 04/23/25 mg/3 mL) subcutaneous pen injector (Ozempic) nitrofurantoin macrocrystal 100 mg 100 mg PO DAILY UTI prevention #90 03/28/25 04/23/25 capsule caps conjugated estrogens 0.625 mg/gram 0.625 mg vaginal DIRECTED #90 04/18/25 04/23/25 vaginal cream (Premarin) grams Previous Rx's ?Medication ?Instructions ?Recorded catheter 14 Fr-6 #200 ea 05/29/20 nitrofurantoin macrocrystal 100 mg 100 mg PO DAILY UTI prevention #90 03/28/25 capsule caps conjugated estrogens 0.625 mg/gram 0.625 mg vaginal DIRECTED #90 04/18/25 vaginal cream (Premarin) grams Allergies Allergy/AdvReac Type Severity Reaction Status Date / Time Seasonal allergies Allergy Mild Itchy Uncoded 04/23/25 10:02 eyes,runny nose General Stated Complaint: SOB LINUS: 3 Review of Systems All systems reviewed & are unremarkable except as noted in HPI and below Constitutional Constitutional: Reports as per HPI Genitourinary Genitourinary: Reports as per HPI Exam Const General: cooperative and no acute distress HENMT Mouth: moist mucous membranes Eyes Conjunctivae: normal conjunctivae Sclera: normal sclerae Neck Neck: trachea midline and supple Resp Auscultation: clear to auscultation bilaterally, no rales, no rhonchi and no wheezes Cardio Jugular venous pressure: no JVD Rate: regular rate and not tachycardic Rhythm: regular rhythm GI Palpation: soft, not firm, no guarding, no masses, not rigid and nontender Skin General skin exam: no rashes or lesions noted Neuro General: patient alert, patient awake, patient oriented x3 and tone normal Extrem General: no edema Psych Appearance: grossly normal Mental Status: mental status grossly normal Speech and Movement: speech and movement normal Course Vital Signs Vital signs: Vital Signs Temperature 37.1 C 04/23/25 09:58 Pulse 106 H 04/23/25 09:58 Respiratory Rate 18 04/23/25 09:58 Blood Pressure 145/90 H 04/23/25 09:58 Pulse Oximetry 94 04/23/25 09:58 Temperature 37.1 C 04/23/25 09:58 Temperature Source Oral 04/23/25 09:58 Pulse 106 H 04/23/25 09:58 Respiratory Rate 20 04/23/25 10:40 Respiratory Effort Short of Breath 04/23/25 10:40 Respiratory Depth Normal 04/23/25 10:40 Respiratory Pattern Normal 04/23/25 10:40 Blood Pressure 145/90 H 04/23/25 09:58 Blood Pressure Position Supine 04/23/25 09:58 Pulse Oximetry 94 04/23/25 09:58 Oxygen Delivery Method Room Air 04/23/25 09:58 Oxygen Flow Rate 0 04/23/25 09:58 Pain Level 6 04/23/25 09:58 Lab/Test Results Lab/Test Results: Laboratory Tests Range/Units 04/23/25 10:29 WBC (4.4-10.8) 10^3/uL 6.72 RBC (3.93-5.22) 10^6/uL 5.09 Hgb (11.2-15.7) g/dL 15.3 Hct (36.0-46.0) % 44.5 MCV (80-95) fL 87 MCH (27.0-33.0) pg 30.1 MCHC (32.0-36.0) % 34.4 RDW (11.7-14.6) % 12.4 Plt Count (130-400) 10^3/uL 227 MPV (8.0-11.0) fL 9.9 Immature Gran % % 0.3 Neutrophils % % 58.5 Lymphocytes % % 25.4 Monocytes % % 10.4 Eosinophils % % 4.5 Basophils % % 0.9 Nucleated RBC % (0.0-0.3) % 0.0 Absolute Neutrophils (1.2-6.7) 10^3/uL 3.93 Absolute Lymphocytes (1.2-3.4) 10^3/uL 1.71 Absolute Monocytes (0.1-0.8) 10^3/uL 0.70 Absolute Eosinophils (0.0-0.7) 10^3/uL 0.30 Absolute Basophils (0.0-0.2) 10^3/uL 0.06 Medical Decision Making ASSESSMENT AND PLAN 63-year-old female with shortness of breath, dizziness, and extreme fatigue for one week. History of peripheral artery disease, lymphedema, diabetes, anxiety disorder, chronic UTIs, colon cancer survivor, and severe neuropathy in feet. Tachycardic. Saturating mid 90s. No respiratory distress. Differential Diagnosis: - COVID-19: COVID test ordered. - Pneumonia: Chest x-ray ordered. - Electrolyte imbalance: Blood work ordered. - Atypical presentation ACS: Cardiac markers and telemetry. - UTI: Repeat urinalysis ordered. - Consider PE - Hypothyroidism ED Course: - Labs reviewed: mild hyperglycemia noted. Elevated ddimer. - Mild hypomag: mag oxide 800mg administered - cxr reviewed and interpreted by radiology: negative - CT chest to assess for PE or infiltrate not apparent on cxr as interpreted by radiology: 1. There is no evidence of a pulmonary embolism or thoracic aortic aneurysm. 2. No acute pulmonary process. - Patient reassessed. All results discussed with patient. Clinical Impression: fatigue Disposition: discharge home with outpatient followup This document was written with the assistance of JULIOCESAR Grace. The patient consented to its use. Imaging Data Radiologic Study: Imaging: CT Scan (chest PE) Radiologist's impression: FINDINGS: Tracheobronchial tree: Patent where visualized. No bronchiectasis. Pulmonary parenchyma: Note is made of an azygos lobe. There are no focal consolidating infiltrates present. Dependent atelectasis is seen in the lung bases. No suspicious pulmonary nodules are present. No architectural distortion. Pulmonary Arteries: No evidence of filling defect to suggest pulmonary emboli. Mediastinum and Tita: No dominant adenopathy or fluid collection. The esophagus is unremarkable. Pleura: No effusion or pneumothorax. Heart: The heart is not dilated. Mild coronary artery calcification is present. No pericardial effusion. Aorta: Thoracic aorta non-dilated. Minimal atherosclerotic calcification is present. Upper abdomen: Unremarkable. Soft tissues: Unremarkable. Bones: Within normal limits for the patient's age. IMPRESSION: 1. There is no evidence of a pulmonary embolism or thoracic aortic aneurysm. 2. No acute pulmonary process. Lab Data Lab results reviewed: Yes I reviewed the patient's lab results. Labs: Laboratory Tests Range/Units 04/23/25 04/23/25 04/23/25 10:29 10:36 10:40 WBC (4.4-10.8) 10^3/uL 6.72 RBC (3.93-5.22) 10^6/uL 5.09 Hgb (11.2-15.7) g/dL 15.3 Hct (36.0-46.0) % 44.5 MCV (80-95) fL 87 MCH (27.0-33.0) pg 30.1 MCHC (32.0-36.0) % 34.4 RDW (11.7-14.6) % 12.4 Plt Count (130-400) 10^3/uL 227 MPV (8.0-11.0) fL 9.9 Immature Gran % % 0.3 Neutrophils % % 58.5 Lymphocytes % % 25.4 Monocytes % % 10.4 Eosinophils % % 4.5 Basophils % % 0.9 Nucleated RBC % (0.0-0.3) % 0.0 Absolute Neutrophils (1.2-6.7) 10^3/uL 3.93 Absolute Lymphocytes (1.2-3.4) 10^3/uL 1.71 Absolute Monocytes (0.1-0.8) 10^3/uL 0.70 Absolute Eosinophils (0.0-0.7) 10^3/uL 0.30 Absolute Basophils (0.0-0.2) 10^3/uL 0.06 D-Dimer (<500) ng/mlFEU 534 H Sodium (136-145) mmol/L 140 Potassium (3.5-5.1) mmol/L 4.3 Chloride (98-107) mmol/L 105 Carbon Dioxide (21.0-32.0) mmol/L 22.5 Anion Gap (3-11) mmol/L 12.5 H BUN (7-18) mg/dL 22 H Creatinine (0.55-1.02) mg/dL 1.1 H Est GFR (CKD-EPI 2020) (mL/min/1.73m2) 54.73 Glucose (74-106) mg/dL 230 H Calcium (8.5-10.1) mg/dL 9.3 Magnesium (1.8-2.4) mg/dL 1.7 L Total Bilirubin (0.2-1.0) mg/dL 0.4 AST (15-37) U/L 21 ALT (14-59) U/L 45 Alkaline Phosphatase (46-116) U/L 101 Troponin I (<or=51) ng/L 13 NT-Pro-B Natriuret Pep (<300) pg/mL 23 Total Protein (6.4-8.2) g/dL 7.2 Albumin (3.4-5.0) g/dL 3.8 TSH (0.36-3.74) uIU/mL 1.46 Urine Color (Yellow) Yellow Urine Clarity (Clear) Clear Urine pH (5-8) 5.5 Ur Specific Ol[place] (1.005-1.025) 1.020 Urine Protein (Neg-Trace) mg/dL Negative Urine Ketones (Negative) mg/dL Negative Urine Blood (Negative) Negative Urine Nitrite (Negative) Negative Urine Bilirubin (Negative) Negative Urine Urobilinogen (Up to 0.2) mg/dL 0.2 Ur Leukocyte Esterase (Negative) Negative Urine Glucose (Negative) mg/dL Negative COVID-19 Source Nasopharynx SARS-CoV-2 (PCR) (Negative) Negative Influenza Type A (PCR) (Negative) Negative Influenza Type B (PCR) (Negative) Negative RSV (PCR) (Negative) Negative Range/Units 04/23/25 11:39 WBC (4.4-10.8) 10^3/uL RBC (3.93-5.22) 10^6/uL Hgb (11.2-15.7) g/dL Hct (36.0-46.0) % MCV (80-95) fL MCH (27.0-33.0) pg MCHC (32.0-36.0) % RDW (11.7-14.6) % Plt Count (130-400) 10^3/uL MPV (8.0-11.0) fL Immature Gran % % Neutrophils % % Lymphocytes % % Monocytes % % Eosinophils % % Basophils % % Nucleated RBC % (0.0-0.3) % Absolute Neutrophils (1.2-6.7) 10^3/uL Absolute Lymphocytes (1.2-3.4) 10^3/uL Absolute Monocytes (0.1-0.8) 10^3/uL Absolute Eosinophils (0.0-0.7) 10^3/uL Absolute Basophils (0.0-0.2) 10^3/uL D-Dimer (<500) ng/mlFEU Sodium (136-145) mmol/L Potassium (3.5-5.1) mmol/L Chloride (98-107) mmol/L Carbon Dioxide (21.0-32.0) mmol/L Anion Gap (3-11) mmol/L BUN (7-18) mg/dL Creatinine (0.55-1.02) mg/dL Est GFR (CKD-EPI 2020) (mL/min/1.73m2) Glucose (74-106) mg/dL Calcium (8.5-10.1) mg/dL Magnesium (1.8-2.4) mg/dL Total Bilirubin (0.2-1.0) mg/dL AST (15-37) U/L ALT (14-59) U/L Alkaline Phosphatase (46-116) U/L Troponin I (<or=51) ng/L 12 NT-Pro-B Natriuret Pep (<300) pg/mL Total Protein (6.4-8.2) g/dL Albumin (3.4-5.0) g/dL TSH (0.36-3.74) uIU/mL Urine Color (Yellow) Urine Clarity (Clear) Urine pH (5-8) Ur Specific Olcott (1.005-1.025) Urine Protein (Neg-Trace) mg/dL Urine Ketones (Negative) mg/dL Urine Blood (Negative) Urine Nitrite (Negative) Urine Bilirubin (Negative) Urine Urobilinogen (Up to 0.2) mg/dL Ur Leukocyte Esterase (Negative) Urine Glucose (Negative) mg/dL COVID-19 Source SARS-CoV-2 (PCR) (Negative) Influenza Type A (PCR) (Negative) Influenza Type B (PCR) (Negative) RSV (PCR) (Negative) PFSH All Active Problems (Updated 04/23/25 @ 14:32 by Sanchez Roth MD) Hyperglycemia (Acute) Fatigue (Acute) Pain in both feet (Acute) Paresthesia (Acute) Edema (Acute) Pain in right foot (Acute) PAD (peripheral artery disease) (Acute) Lymphedema (Acute) Type 2 diabetes mellitus with peripheral neuropathy (Acute) Anxiety disorder (Acute) Diabetes (Chronic) Hypomagnesemia (Acute) Pyelonephritis (Acute) Visit for wound check (Acute) Fever (Acute) Wound cellulitis (Acute) Difficult airway for intubation (Acute) Skin tag (Acute 01/29/14) Postoperative urinary retention (Acute 03/15/18) Neoplasm of skin (Acute 01/29/14) Atypical squamous cells of undetermined significance (ASC-US) on cervical Pap smear (Acute 06/21/17) (-)HR HPV on 04/21/17 pap 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 coli UTI (urinary tract infection) (Acute) Medical History Surgical procedures, elective (07/26/18) dr duckworth port placement (R) for rectal cancer therapy History of rectal cancer Vitamin D deficiency Hyperlipidemia Arthralgia PCOS (polycystic ovarian syndrome) Low back pain ISIAH (obstructive sleep apnea) Surgical History H/O colonoscopy (07/15/18) dr duckworth, no abnormalities, repeat five years History of creation of ostomy History of colon resection Hysterectomy, Laproscopic Dilation and curettage Colonoscopy - MAC (07/27/17) invasive adenocarcinoma, rectum. Social History Smoking/Tobacco Use Status: Never Smoking risk assessment performed?: Yes Alcohol Intake: current Alcohol Intake frequency: holidays/special occasions only Drug use: Never Substance use type: does not use Housing: apartment Do you feel safe in your relationship?: Yes
[2025-04-23 10:50] LABS: Glucose Negative (Negative)
--- NOTE | 2025-04-23 10:58 | DI.RAD_ITS ---
Exam(s) XR CHEST 2V PA LATERAL EXAM: XR CHEST 2V PA LATERAL CLINICAL HISTORY: sob TECHNIQUE: 2D digital imaging was performed of the chest. Two images were obtained. PA and lateral views were obtained. COMPARISON: CR XR CHEST 2V PA LATERAL from 07/05/2024 FINDINGS: MEDIASTINUM: Normal. HEART: Normal. PULMONARY VASCULATURE: Normal. LUNGS: Clear. PLEURAL SPACE: No pleural effusion or pneumothorax. BONE:Within normal limits for the patient's age. OTHER FINDINGS:Normal. IMPRESSION: No acute pulmonary findings. DATA REPOSITORY: RADIATION DOSE DELIVERED:
[2025-04-23 11:11] LABS: D-Dimer 534 ng/mlFEU (<500)
[2025-04-23 11:21] LABS: ALT 45 U/L (14-59); AST 21 U/L (15-37); Albumin 3.8 g/dL (3.4-5.0); Alkaline Phosphatase 101 U/L (46-116); Anion Gap 12.5 mmol/L (3-11); BUN 22 mg/dL (7-18); Bilirubin, Total 0.4 mg/dL (0.2-1.0); CO2 22.5 mmol/L (21.0-32.0); Calcium 9.3 mg/dL (8.5-10.1); Chloride 105 mmol/L (98-107); Estimated GFR 54.73 (mL/min/1.73m2); Glucose 230 mg/dL (74-106); Magnesium 1.7 mg/dL (1.8-2.4); NT-proBNP 23 pg/mL (<300); Potassium 4.3 mmol/L (3.5-5.1); Sodium 140 mmol/L (136-145); TSH (W/Ref FT4) 1.46 uIU/mL (0.36-3.74); Total Protein 7.2 g/dL (6.4-8.2); Troponin I 13 ng/L (<or=51)
[2025-04-23 11:27] LABS: COVID-19 PCR Negative (Negative); RSV PCR Negative (Negative)
--- NOTE | 2025-04-23 11:30 | DI.CT_ITS ---
Exam(s) CT CHEST PE CTA EXAM: CT CHEST PE CTA CLINICAL HISTORY: shortness of breath. TECHNIQUE: Imaging Protocol: Axial CT angiography was performed with multi- slice acquisition and multi-planar and/or 3D reconstructions. Lung Computer Aided Detection (CAD) was utilized. CONTRAST MATERIAL: Intravenous: Omnipaque 350 contrast volume:100 mL COMPARISON: CT CT CHEST/ABD/PEL W from 01/23/2025 CR XR CHEST 2V PA LATERAL from 04/23/2025 FINDINGS: Tracheobronchial tree: Patent where visualized. No bronchiectasis. Pulmonary parenchyma: Note is made of an azygos lobe. There are no focal consolidating infiltrates present. Dependent atelectasis is seen in the lung bases. No suspicious pulmonary nodules are present. No architectural distortion. Pulmonary Arteries: No evidence of filling defect to suggest pulmonary emboli. Mediastinum and Tita: No dominant adenopathy or fluid collection. The esophagus is unremarkable. Pleura: No effusion or pneumothorax. Heart: The heart is not dilated. Mild coronary artery calcification is present. No pericardial effusion. Aorta: Thoracic aorta non-dilated. Minimal atherosclerotic calcification is present. Upper abdomen: Unremarkable. Soft tissues: Unremarkable. Bones: Within normal limits for the patient's age. IMPRESSION: 1. There is no evidence of a pulmonary embolism or thoracic aortic aneurysm. 2. No acute pulmonary process. RADIATION DOSE DELIVERED: 119.92mGy.cm Total DLP DATA REPOSITORY: All CT scans at this facility are submitted to the National Radiology Data Registry (NRDR) Dose Index Registry (DIR) with the [employer] (A[employer]). RADIATION OPTIMIZATION: All CT scans at this facility use at least one of these dose optimization techniques: automated exposure control; mA and/or kV adjustment per patient size (includes targeted exams where dose is matched to clinical indication); or iterative reconstruction.
[2025-04-23] MEDS: Normal Saline Flush 10 ML SYR IVP (12:16)
[2025-04-23] MEDS: Normal Saline - Diluent 50 ML VIAL IJ (12:16)
[2025-04-23] MEDS: Omnipaque 350 MG/ML 100 ML BTL IJ (12:17)
[2025-04-23] MEDS: Magnesium Oxide 400 MG TAB 800 MG PO (12:26)
[2025-04-23] MEDS: Lactated Ringers 500 ML 1000 ML IV (12:27)
[2025-04-23 12:42] LABS: Troponin I 12 ng/L (<or=51)
[2025-04-23] MEDS: Acetaminophen 325 MG TAB 650 MG PO (13:20)
[2025-04-24 12:01] LABS: Hemoglobin A1C 7.1 % (<5.7)
== END 2025-04-23 14:59 | disposition home or self-care (01) ==
PROVIDERS: Emergency Provider Student in an Organized Health Care Education/Training Program; PCP Family Medicine
DX: R53.83 Other fatigue (principal); R73.9 Hyperglycemia, unspecified; R06.02 Shortness of breath
CPT/HCPCS: 36415; 71275; 80053; 87637; 93005; 96360; 99285; 71046; 81003; 83036; 83735; 83880; 84443; 84484; 85025; 85379; 93010; 99284; J3490

== ENCOUNTER 2025-05-01 10:02 | Outpatient (CLI) | payer MEDICARE, SELFPAY ==
--- NOTE | 2025-05-01 10:32 | DI.RAD_ITS ---
Exam(s) XR ANKLE RT COMPLETE XR FOOT RT COMPLETE EXAM: XR ANKLE RT COMPLETE CLINICAL HISTORY: Right ankle pain,rt ankle pain, m25.571. TECHNIQUE: 2D digital imaging was performed. Three views of the right foot and ankle. COMPARISON: CR XR FOOT RT COMPLETE from 05/01/2025 FINDINGS: BONES: No acute fracture is present. No bony destructive lesion is seen. Small enthesophyte at the calcaneus. JOINTS: The ankle mortise is normally aligned. There is narrowing of the medial tibial talar joint. There is spurring at both malleoli. Plantar arch is maintained. No significant degenerative changes in the foot. SOFT TISSUE: Normal. IMPRESSION: Degenerative changes of the medial tibiotalar joint. DATA REPOSITORY: RADIATION DOSE DELIVERED:
== END 2025-05-01 10:22 ==
LOC: DI 10:03
PROVIDERS: PCP Family Medicine; Visit Provider Podiatrist
DX: M79.671 Pain in right foot (principal); M25.571 Pain in right ankle and joints of right foot
CPT/HCPCS: 73610; 73630

== ENCOUNTER 2025-05-08 08:15 | Outpatient (CLI) | payer MEDICARE, SELFPAY ==
--- NOTE | 2025-05-08 09:15 | DI.MAMMO_ITS ---
Exam(s) MAMMO SCREENING EXAM: MAMMO SCREENING CLINICAL HISTORY: SCREENING MAMMO Z12.31. TECHNIQUE: Bilateral full field digital CC and MLO mammographic images were obtained with 3D tomosynthesis and utilizing computer aided detection (CAD). COMPARISON: Prior mammograms were reviewed. FINDINGS: There has been no significant change in the appearance and distribution of the fibroglandular tissue. There are no CAD designations. There are no new spiculated masses nor malignant appearing microcalcification groups. Small densities in the right breast are unchanged from 2020 therefore benign. There is no significant architectural distortion nor skin thickening-retraction. IMPRESSION: No radiographic evidence of malignancy. Stable benign-appearing findings. BI-RADS Category 2 - Benign Findings Breast Density - Category B - There are scattered areas of fibroglandular density. Breast density Category C or D implies that the patient has dense breast tissue. Dense breast tissue can make it harder to find cancer on a mammogram. Dense breast tissue is also associated with an increased risk of breast cancer. This information about the result of the mammogram report was provided to the patient to raise their awareness. Use this report when you speak with the patient about their risks for breast cancer, which includes their family history. At that time, you may recommend additional screening tests (Ultrasound or MRI) as these tests may add significant information. A negative radiographic report should not delay biopsy if a dominant or clinically suspicious mass is present. Up to ten percent of cancers are not identified on mammography. A negative report may reinforce clinical impression. Adenosis and dense breasts may obscure an underlying neoplasm. False positive reports average 6 to 10%. Patient will receive a letter notifying them of these results.
== END 2025-05-08 08:35 ==
LOC: DI 08:15
PROVIDERS: PCP Family Medicine; Visit Provider Family Medicine
DX: Z12.31 Encounter for screening mammogram for malignant neoplasm of breast (principal)
CPT/HCPCS: 77063; 77067

== ENCOUNTER 2025-05-17 17:18 | Outpatient (REF) | payer MEDICARE, SELFPAY ==
[2025-05-17 19:26] LABS: Glucose 100 mg/dL (Negative)
== END 2025-05-17 17:19 | disposition home or self-care (01) ==
LOC: NCHCN 17:18
PROVIDERS: PCP Family Medicine; Visit Provider Nurse Practitioner Family
DX: R39.9 Unspecified symptoms and signs involving the genitourinary system (principal)
CPT/HCPCS: 81003

== ENCOUNTER → 2025-06-19 13:25 | Outpatient (BNVA) | payer MEDICARE, SELFPAY | PROVIDERS: PCP Family Medicine; Referring Provider Family Medicine; Visit Provider Podiatrist | DX: E11.42 Type 2 diabetes mellitus with diabetic polyneuropathy (principal); I73.89 Other specified peripheral vascular diseases; M79.671 Pain in right foot; R60.0 Localized edema; I89.0 Lymphedema, not elsewhere classified; R09.89 Other specified symptoms and signs involving the circulatory and respiratory systems; R20.8 Other disturbances of skin sensation; R23.4 Changes in skin texture; L85.8 Other specified epidermal thickening | CPT/HCPCS: 11056; 11719; 93922 ==

== ENCOUNTER 2025-07-16 18:43 | Outpatient (REF) | payer MEDICARE, SELFPAY ==
[2025-07-16 20:49] LABS: Glucose Negative (Negative)
== END 2025-07-16 18:44 | disposition home or self-care (01) ==
LOC: LBN 18:43
PROVIDERS: PCP Family Medicine; Visit Provider Nurse Practitioner Gerontology
DX: R35.0 Frequency of micturition (principal)
CPT/HCPCS: 81003; 87086

== ENCOUNTER → 2025-08-16 00:35 | Outpatient (CLI) | payer MEDICARE, SELFPAY ==
--- NOTE | 2025-08-16 13:56 | DI.DEXA_ITS ---
Exam(s) XR DEXA BONE DENSITY W/WO TANYA EXAM: XR DEXA BONE DENSITY W/WO TANYA CLINICAL HISTORY: SCREENING FOR OSTEOPOROSIS, Z78.0, ASYMPTOMATIC MENOPAUSAL STATE TECHNIQUE: Hologic Horizon C densitometer analysis of left hip, lumbar spine and left forearm. Lateral survey image of the thoracic and lumbar spine. COMPARISON: CR XR CHEST 2V PA LATERAL from 04/23/2025 FINDINGS: Lateral view of the thoracic and lumbar spine shows no evidence of compression fractures. Bone mineral density measurements of the lumbar spine correspond to a total T- score of 2.7, in the normal range. Bone mineral density measurements of the left hip correspond to a total T-score of 1.3. The femoral neck T-score is 0.4, in the normal range. Theleft forearm bone mineral density measurements correspond to a T-score of the distal 3rd of -0.4, in the normal range.. IMPRESSION: Normal bone mineral density.
== END ==
PROVIDERS: PCP Family Medicine; Visit Provider Family Medicine
DX: Z78.0 Asymptomatic menopausal state (principal)
CPT/HCPCS: 77080